=== PATIENT | female | born 2000 | race Caucasian/White ===

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

== ENCOUNTER → 2021-07-29 08:06 | Outpatient (BNVA) | payer BC, SELFPAY | PROVIDERS: Visit Provider Nurse Practitioner Women's Health | DX: Z34.90 Encounter for supervision of normal pregnancy, unspecified, unspecified trimester (principal); N92.6 Irregular menstruation, unspecified | CPT/HCPCS: 81025 ==

== ENCOUNTER → 2021-09-09 09:11 | Outpatient (BNVA) | payer BC, MEDICAID, SELFPAY | PROVIDERS: Visit Provider Obstetrics & Gynecology | DX: Z34.90 Encounter for supervision of normal pregnancy, unspecified, unspecified trimester (principal) | CPT/HCPCS: 80307; 82950; 84315; 84443; 85025; 86592; 86762; 86787; 86803; 86850; 86900; 87086; 87340; 87491; 87591; 87661 ==

== ENCOUNTER → 2022-01-02 09:17 | Outpatient (BNVA) | payer MEDICAID, SELFPAY | PROVIDERS: Visit Provider Obstetrics & Gynecology | DX: Z34.90 Encounter for supervision of normal pregnancy, unspecified, unspecified trimester (principal) | CPT/HCPCS: 81000; 82950; 85025 ==

== ENCOUNTER → 2022-01-19 08:22 | Outpatient (BNVA) | payer MEDICAID, SELFPAY | PROVIDERS: Visit Provider Obstetrics & Gynecology | DX: Z34.80 Encounter for supervision of other normal pregnancy, unspecified trimester (principal) | CPT/HCPCS: 81000 ==

== ENCOUNTER 2022-02-16 07:53 | Outpatient (CLI) | payer BC, MEDICAID, SELFPAY ==
[2022-02-16] VITALS (37 sets, daily range): BP systolic 126–168; BP diastolic 60–101; PULSE 96–130; RESP 17; TEMP 35.9–36.3; O2SAT 96–98; BMI 47.5
[2022-02-16 08:56] LABS: Add Urine Microscopic? YES; Bilirubin Urine Neg (Negative); Blood Urine Neg (Negative); Glucose Urine UA Norm (Normal); Ketones Urine Negative (Negative); Leukocyte Esterase Urine Trace (Negative); Nitrate Urine Negative (Negative); Protein Urine Neg (Negative); Specific Gravity, Urine 1.015 (1.005-1.030); Urine Appearance Hazy (CLEAR); Urine Color Yellow (Yellow); Urobilinogen Urine Norm (Negative); pH Urine 6 (5-7)
[2022-02-16 08:57] LABS: Add Urine Culture? No; Bacteria Urine 2+ /hpf; Mucus Urine TRACE /hpf; RBC Urine 0-4 /hpf (0-2); Squamous Epithelial Cell Urine 15-25 /hpf (0-5)
[2022-02-16] MEDS: NIFEdipine 10 mg Capsule 30 MG PO (10:34)
[2022-02-16] MEDS: terbutaline 1 mg/mL INJ 0.25 MG SUBCUT (12:01)
== END 2022-02-16 13:35 | disposition home or self-care (01) ==
LOC: OPOB 07:53 → OBGYN 07:54
PROVIDERS: Obstetrics & Gynecology; PCP Nurse Practitioner Family; Visit Provider Obstetrics & Gynecology
DX: O26.899 Other specified pregnancy related conditions, unspecified trimester (principal); Z3A.00 Weeks of gestation of pregnancy not specified; R10.9 Unspecified abdominal pain
CPT/HCPCS: 59025; 81001; 96372; 99211; J3105

== ENCOUNTER 2022-02-27 04:24 | Outpatient (CLI) | payer BC, MEDICAID, SELFPAY ==
[2022-02-27 04:45] VITALS: BMI 46.6
[2022-02-27 04:53] LABS: Nitrazine Paper, PH Negative
[2022-02-27 05:29] LABS: Charge for UA Resulting for Rev
[2022-02-27 05:33] LABS: Add Urine Microscopic? NO; Bilirubin Urine Neg (Negative); Blood Urine Neg (Negative); Glucose Urine UA Norm (Normal); Ketones Urine 1+ (Negative); Leukocyte Esterase Urine Negative (Negative); Nitrate Urine Negative (Negative); Protein Urine Neg (Negative); Specific Gravity, Urine 1.015 (1.005-1.030); Urine Appearance Clear (CLEAR); Urine Color Yellow (Yellow); Urobilinogen Urine Norm (Negative); pH Urine 6 (5-7)
[2022-02-27] MEDS: NIFEdipine ER (24 hr) 30 mg Tablet PO (05:33)
[2022-02-27 06:05] VITALS: BP 170/90; PULSE 106
[2022-02-27 06:08] VITALS: BP 152/68; PULSE 111
== END 2022-02-27 07:10 | disposition home or self-care (01) ==
LOC: OPOB 04:25 → OBGYN 04:42
PROVIDERS: PCP Nurse Practitioner Family; Visit Provider Obstetrics & Gynecology
DX: O26.899 Other specified pregnancy related conditions, unspecified trimester (principal); Z3A.00 Weeks of gestation of pregnancy not specified; R10.9 Unspecified abdominal pain
CPT/HCPCS: 59025; 81003; 83986; 99211

== ENCOUNTER → 2022-03-01 13:30 | Outpatient (BNVA) | payer MEDICAID, SELFPAY | PROVIDERS: PCP Nurse Practitioner Family; Visit Provider Obstetrics & Gynecology | DX: Z34.90 Encounter for supervision of normal pregnancy, unspecified, unspecified trimester (principal) | CPT/HCPCS: 81000; 87081; 87086 ==

== ENCOUNTER → 2022-03-08 00:01 | Outpatient (BNVA) | payer BC, MEDICAID, SELFPAY | PROVIDERS: PCP Nurse Practitioner Family; Visit Provider Obstetrics & Gynecology | DX: O09.899 Supervision of other high risk pregnancies, unspecified trimester (principal); Z3A.00 Weeks of gestation of pregnancy not specified | CPT/HCPCS: 84156 ==

== ENCOUNTER 2022-03-16 18:51 | Inpatient (IN) | payer BC, MEDICAID, SELFPAY ==
[2022-03-16] VITALS (34 sets, daily range): BP systolic 120–140; BP diastolic 59–99; PULSE 96–129; RESP 18; TEMP 35.9; O2SAT 98–100; BMI 48.7
[2022-03-16] MEDS: dextrose 5%-lactated ringers 1,000 ML 999 ML IV (20:16)
[2022-03-16 20:34] LABS: Basophils # 0.1 10^3/uL (0.0-0.1); Basophils % 0.6 %; Eosinophils # 0.1 10^3/uL (0.0-0.8); Eosinophils % 0.6 %; Hematocrit 33.8 % (37.0-47.0); Hemoglobin 10.9 g/dL (11.5-15.3); Lymphocytes # 1.2 10^3/uL (1.5-6.5); Lymphocytes % 9.1 %; Mean Corpuscular HGB Conc 32.2 g/dL (30.0-36.0); Mean Corpuscular Hemoglobin 27.8 pg (28.0-34.0); Mean Corpuscular Volume 86.2 fl (81-99); Monocytes # 1.4 10^3/uL (0.2-0.9); Monocytes % 10.8 %; Neutrophils # 9.78 10^3/uL (1.8-8.0); Neutrophils % 77.8 %; Nucleated Red Blood Cells % 0 %; Platelet Count 294 10^3/cmm (130-400); Red Blood Count 3.92 10^6/uL (4.1-5.3); Red Cell Distribution Width 13.2 % (12.1-15.1); White Blood Count 12.6 10^3/uL (4.5-13.0)
[2022-03-16] MEDS: alum-mag-hydroxide-sime 30 mL UDC PO (21:33)
[2022-03-16] MEDS: magnesium sulfate premix 4 GM/100 ML PREMIX IV (22:45)
[2022-03-16 23:01] LABS: Alanine Aminotransferase 16 U/L (0-33); Albumin Level 3.1 g/dL (3.5-5.2); Alkaline Phosphatase 195 IU/L (35-105); Anion Gap 17.1 (5-19); Aspartate Amino Transferase 16 U/L (0-32); Blood Urea Nitrogen 10 mg/dL (6-20); Calcium 8.8 mg/dL (8.5-10.5); Carbon Dioxide 19 mmol/L (22-29); Chloride 104 mmol/L (98-107); Globulin 3.5 g/dL (1.3-4.6); Glomerular Filtration Rate 157.3 mL/min (90-130); Glucose 96 mg/dL (65-115); Osmolality Calculated 281 mOsm/kg (285-295); Potassium 4.1 mmol/L (3.5-5.1); Sodium 136 mmol/L (136-145); Total Bilirubin 0.2 mg/dL (0.15-1.2); Total Protein 6.6 g/dL (6.6-8.7)
[2022-03-16] MEDS: magnesium sulfate premix 20 GM/500 ML BAG IV (23:07)
[2022-03-16] MEDS: miSOPROStol 100 mcg tablet 25 MCG VAGINAL (23:12)
[2022-03-17] VITALS (184 sets, daily range): BP systolic 95–151; BP diastolic 50–94; PULSE 51–121; RESP 18; TEMP 35.3–37.4; O2SAT 89–100
[2022-03-17] MEDS: dextrose 5%-lactated ringers 1,000 ML 125 ML IV ×2 (00:54→21:54)
[2022-03-17] MEDS: ondansetron 2 mg/ML SDV 2 mL 4 MG IVP ×2 (02:56→12:58)
[2022-03-17] MEDS: metoclopramide 5 mg/mL SDV 2 mL 10 MG IV (05:15)
[2022-03-17 06:14] LABS: Magnesium Level (OB Only) 3.9 mg/dL (5.0-7.5)
[2022-03-17] MEDS: oxytocin 30 UNIT/500 ML BAG IV (06:33)
[2022-03-17] MEDS: magnesium sulfate premix 20 GM/500 ML BAG IV ×3 (08:21→22:36)
[2022-03-17] MEDS: lactated ringers 500 ML IV (09:19)
--- NOTE | 2022-03-17 10:28 | ANES.PREANE2 ---
Pre-Anesthetic Assessment Height/Weight: Height 1.75 m Weight 149.685 kg Temp Pulse Resp BP Pulse Ox O2 Del Method 97.2 F L 100 18 138/60 98 03/17/22 08:03 03/17/22 09:30 03/16/22 20:09 03/17/22 09:30 03/16/22 21:32 03/17/22 03:22 Preop Diagnosis: Planning of labor analgesia Labor epidural Familial anesthetic complications: None Was Beta Jihan taken within 24 hours: N/A Was Clonidine taken within 24 hours: N/A Last intake: Full stomach Social No alcohol and No tobacco Exam alert, oriented x 3, clear to auscultation bilaterally and regular rate & rhythm Airway Submandibular: within normal limits Cervical ROM: within normal limits Mallampati: Class II Dentition: full History/ROS No significant history except as noted and No significant complaints Pulmonary None reported None reported Mild pre eclampsia on mag Hepatic None reported GI None reported Metabolic Morbid Obesity Musc/skel None reported Neuropsych None reported Anesthetic Plan ASA status: 3 (Morbidly obese parturient with pre eclampsia ) Anesthesia: Anesthesia Evaluation, Eval. for regional block, General and Regional (specify below) (Labor epidural) Other: I discussed with patient the risk and benefits of labor epidural including PDPH, hypotension, back pain/discomfort/bruising, catastrophic nerve injury including paralysis, abscess, hematoma, failed block, one sided block, and LAST. Patient consents to labor epidural and in case of emergency consents to general anesthesia. Risk of > 500 ml blood loss (7ml/kg in children): No Medications/Allergies Home Medications Medication Instructions Recorded Confirmed Last Taken Type PNV 153-FA 400 mcg-om3 35 mg-dha tab PO 09/09/21 03/06/22 02/24/22 History 25 mg-epa 5 mg-fish oil chew tablet ( Gummies) cetirizine 10 mg capsule (Zyrtec) 10 mg PO DAILY PRN Pain, Mild 10/10/21 03/06/22 02/24/22 History acetaminophen 500 mg tablet 500 mg PO Q6H PRN Pain 11/14/21 03/06/22 02/24/22 History (Tylenol Extra Strength) famotidine 20 mg tablet (Pepcid) 20 mg PO DAILY PRN 03/01/22 03/06/22 Unknown History Allergies Allergy/AdvReac Type Severity Reaction Status Date / Time No Known Allergies Allergy Verified 03/06/22 15:26 Current Medications Generic Name Dose Route Start Last Admin Trade Name Yrnq PRN Reason Stop Dose Admin Al Hydrox/Mg Hydrox/Simethicone 30 ml 03/16/22 20:09 03/16/22 21:33 Nrzw-Rfk-Imdcvruae-Raquel 30 Ml Udc PO 30 ml Q4H PRN Administration INDIGESTION Dextrose/Lactated Ringer's 1,000 mls @ 999 mls/hr 03/16/22 20:15 03/16/22 20:16 Dextrose 5%-Lactated Ringers IV 999 mls/hr .Q1H1M WALTER Administration Dextrose/Lactated Ringer's 1,000 mls @ 125 mls/hr 03/16/22 20:15 03/17/22 00:54 Dextrose 5%-Lactated Ringers IV 125 mls/hr .Q8H WALTER Administration Magnesium Sulfate 20 gm in 500 mls @ 62.5 mls/hr 03/16/22 22:15 03/17/22 08:21 Magnesium Sulfate Premix IV 62.5 mls/hr .Q8H WALTER Administration Oxytocin 30 unit in 500 mls @ 1 mls/hr 03/17/22 06:30 03/17/22 06:33 Pitocin IV 1 milliunit/min .Q24H WALTER 1 mls/hr Administration Protocol 1 MILLIUNIT/MIN Lactated Ringer's 500 mls @ 500 mls/hr 03/17/22 09:08 03/17/22 09:19 Lactated Ringers IV 500 mls/hr .Q1H PRN Administration see label comments Ondansetron HCl 4 mg 03/16/22 20:09 03/17/22 02:56 Ondansetron 2 Mg/Ml Sdv 2 Ml IVP 4 mg Q4H PRN Administration NAUSEA AND VOMITING PFSH Anesthesia Medical History Menorrhagia with regular cycle No pertinent past medical history neghx: htn,dm,heart,lung,liver,kidney,thyroid,dvt PCP: [facility] Surgical History Hx of fracture of leg (~10/2020) L leg and ankle Hx of wisdom tooth extraction (~10/2016) Family History Mother Thyroid disease Family/Other Breast cancer Paternal Great Aunt, Paternal Great Grandmother-- dx age unknown Grandfather Hypertension Maternal Stroke Paternal Grandmother Diabetes Maternal Denies family history of Colon cancer Ovarian cancer Heart disease Bleeding disorder Uterine cancer Social History Additional social history: - Tobacco use: Never Alcohol use: Never Drug use: Never Female Reproductive History Date of last menstrual period: 10/09/20 : 1 Data Anesthesia : 03/16/22 19:58 03/16/22 22:16 Short CBC 03/16/22 Range/Units 19:58 WBC 12.6 (4.5-13.0) 10^3/uL Hgb 10.9 L (11.5-15.3) g/dL Hct 33.8 L (37.0-47.0) % MCV 86.2 (81-99) fl Plt Count 294 (130-400) 10^3/cmm Neut % (Auto) 77.8 % Neut # (Auto) 9.78 H (1.8-8.0) 10^3/uL BMP 03/16/22 22:16 Sodium 136 Potassium 4.1 Chloride 104 Carbon Dioxide 19 L BUN 10 Creatinine 0.5 Glucose 96 Calcium 8.8 Liver Function 03/16/22 Range/Units 22:16 Total Bilirubin 0.2 (0.15-1.2) mg/dL AST 16 (0-32) U/L ALT 16 (0-33) U/L Alkaline Phosphatase 195 H (35-105) IU/L Albumin 3.1 L (3.5-5.2) g/dL Cardiac Studies: No Data to Display
[2022-03-17 10:38] LABS: Magnesium Level (OB Only) 4.3 mg/dL (5.0-7.5)
--- NOTE | 2022-03-17 12:10 | PC.NURSE ---
2nd peripheral IV inserted via ultrasound guidance by Dr Moon
--- NOTE | 2022-03-17 12:22 | ANES.PROC ---
Anesthesia Procedures Procedure/Date: 03/17/22 Epidural: Time Out Performed: Yes Consents Signed: Procedure Consent Consent: from patient Lumbar Level: L4-L5 Epidural position: sitting Epidural procedure: sterile prep of area, 1% lidocaine to numb the area, 18 g needle, neg for paresthesia, test dose given, 1.5% xylocaine 1:200k epi, 0.2% Ropivacaine bolus ml, placed PCEA, no systemic response, sterile dressing applied and 0.2% Ropiavacaine @ mls/hr (13) Additional Comments: Cap, mask donned by staff in room. Patient sat up. Patient prepped and draped in usual sterile fashion with Chlorprep. 1% lidocaine skin wheel. Tuohy inserted with stylet. Ligament engaged. Using JAZZ w/ saline technique epidural space found, catheter threaded. Negative aspiration. Test dose 2% lidocaine with epinephrine 1:200,000 total 3 cc. No response. Sterile dressing. Infusion started. Loss at? 9?(to the hub) , catheter at 15 . Tolerated well, 2 attempts (1 skin puncture), good block.?
--- NOTE | 2022-03-17 12:25 | ANES.PROC ---
Anesthesia Procedures Procedure/Date: 03/17/22 Other Information: After sterile prep and using real time US guidance for vessel selection a 16 g PIV was inserted with real time visualization of needle entry and real time visualization of catheter advancement. Tolerated well. 1 attempt.
--- NOTE | 2022-03-17 14:06 | P.PN_ITS ---
Subjective Subjective: Subjective- Ms. Cazares is a 21-year-old 1 para 0 at 38 weeks and 3 days who is being induced for preeclampsia. She was brought in with Dr. Calixto and plan was to do Cytotec. She was started on magnesium sulfate for seizure prophylaxis. Upon admission blood pressures were overall normal with occasional elevations into the 140s. Patient denied any severe symptoms. tracing was category 1 with no contractions. On admission cervix was 1 cm 50% and -3 station. Induction was started with Cytotec placed at 11 PM on 03/16/2022. 4 hours later she had made some cervical change to 2 cm 80% and -3 station and was zaid every 2 to 4 minutes. She was observed for another 3 hours and made no further cervical change and contractions spaced out to every 6 to 7 minutes. She was started on Pitocin for augmentation of labor. During this time urine output was adequate and she was doing well with magnesium. Magnesium levels did not obtain therapeutic level and so magnesium level was increased to 2.5 g an hour and then later to 3 g an hour. Today patient states she is overall doing well. Is just ready to have the baby. She has SCDs on and catheter in. Since getting the epidural she feels a lot more comfortable. Objective- Blood pressure-123/63 mmHg Pulse-95 beats per minute Temperature-97.8 Fahrenheit Abdomen-gravid, nontender, obese Sterile vaginal exam-4 cm, 70%, -3 station, bulging bag EFM-120, moderate variability, accelerations present, no decelerations [place]-contractions every 2 to 4 minutes Assessment: 21-year-old 1 para 0 at 38 weeks and 3 days currently undergoing induction for preeclampsia at term GBS negative Morbid obesity with a BMI of 48 Plan: Continue Pitocin reassess cervix in 2 hours and allow for either SROM or the head to descend lower in order to do AROM. -Continue magnesium sulfate and reassess magnesium levels 4 hours after increase of magnesium baseline to 3 g an hour to assess if patient is therapeutic. Continue strict I's and O's and respiratory care. -Plan of care was reviewed with patient and she has no questions or concerns at this time Continuous EFM and tocometry Vitals/I&O/Wt Last Vital Signs Temp 97.2 F L 03/17/22 08:03 Pulse 95 03/17/22 14:00 Resp 18 03/16/22 20:09 BP 123/63 03/17/22 13:58 Pulse Ox 100 03/17/22 14:00 O2 Del Method 03/17/22 03:22 03/16/22 03/17/22 03/17/22 22:59 06:59 14:59 Intake Total 1689.792 / 1689.792 Output Total 1155 / 1155 752 / 752 Balance -1155 / -1155 937.792 / 937.792 Weight last 48 hrs Weight 330 lb Physical Exam Urinary Catheter Management: Lombardo: Cath Placed During This Visit: yes Reason for Continuing Indwelling Catheter: Accurate Measurement of Urinary Output in Critically Ill Patients Urinary Catheter Date of Insertion: 03/17/22 Urinary Catheter Time of Insertion: 23:12 Data : 03/16/22 19:58 03/16/22 22:16 Attestations Medical Necessity Statement*: Patient will need to stay for 1-2 more midnights to deliver and recover from delivery Coding Level of Care Code Acute Construction Coordinator for [place]
[2022-03-17 19:28] LABS: Magnesium Level (OB Only) 6.5 mg/dL (5.0-7.5)
[2022-03-17] MEDS: oxytocin 30 UNIT/500 ML BAG 600 UNIT IV (19:57)
[2022-03-17] MEDS: lidocaine 2% INJ 20 mL INJECTION (20:00)
--- NOTE | 2022-03-17 20:19 | P.PCNOB_ITS ---
Delivery Note: Date of delivery: March 17, 2022 Pre-delivery diagnoses: iup@[id number], preeclampsia Post-delivery diagnoses: same-delivered Procedure: Delivering Physician: Marily Estimated blood loss (mL): 150 Findings: term female in the ERVIN presentation Pre-Delivery Course: The patient was admitted for induction at 38 weeks for preeclampsia. She received one dose of cytotec and was zaid too frequently for another dose of cytotec. Pitocin was started per protocol. She had AROM and received an epidural for pain management. She had complete cervical dilation and began pushing. Delivery: The patient had complete cervical dilation and began to push. The head delivered in the ERVIN position over a midline episiotomy under epidural anesthesia. The nose and mouth were bulb suctioned. The shoulders and body delivered atraumatically. The baby was placed onto the mother's abdomen. The cord was clamped and cut. The placenta delivered spontaneously. It was inspected and found to be intact. Inspection of the perineum revealed a second- degree episiotomy without extension. It was repaired in the usual fashion. Estimated blood loss 150 mL. Apgars on baby were 7 at 1 minute and 9 at 5 minutes. Weight of baby is 7 pounds 8 ounces. Mother and baby were stable post delivery. History History History 1 Term Miscarriages/Ectopic Living Children Coding Level of Care Code Acute Micro Computer Data Processor for [place]
[2022-03-17] MEDS: ibuprofen 800 mg tablet PO (21:54)
[2022-03-18] VITALS (27 sets, daily range): BP systolic 115–148; BP diastolic 60–87; PULSE 83–96; RESP 18; TEMP 35.9–36
[2022-03-18] MEDS: alum-mag-hydroxide-sime 30 mL UDC PO (01:44)
[2022-03-18 03:24] LABS: Magnesium Level (OB Only) 6.2 mg/dL (5.0-7.5)
[2022-03-18] MEDS: acetaminophen 325 mg Tablet 650 MG PO ×2 (05:02→18:32)
[2022-03-18] MEDS: magnesium sulfate premix 20 GM/500 ML BAG IV ×2 (05:25→12:45)
[2022-03-18 08:45] LABS: Hemoglobin 10.1 g/dL (11.5-15.3); Mean Corpuscular HGB Conc 32.6 g/dL (30.0-36.0); Mean Corpuscular Hemoglobin 28.1 pg (28.0-34.0); Mean Corpuscular Volume 86.1 fl (81-99); Mean Platelet Volume 10.7 fL (7.4-10.4); Platelet Count 288 10^3/cmm (130-400); Red Cell Distribution Width 13.3 % (12.1-15.1); White Blood Count 14.4 10^3/uL (4.5-13.0)
[2022-03-18] MEDS: docusate sodium 100 mg Capsule PO ×2 (09:07→22:12)
[2022-03-18] MEDS: prenatal vitamin Capsule 1 CAP PO (09:07)
[2022-03-18] MEDS: ibuprofen 800 mg tablet PO ×3 (09:07→22:12)
[2022-03-18 09:15] LABS: Magnesium Level (OB Only) 6.6 mg/dL (5.0-7.5)
--- NOTE | 2022-03-18 14:49 | PM.PN ---
Subjective Subjective: The patient has continued on Mag sulfate since delivery. There have been therapeutic levels. She has no complaints. Vitals/I&O/Wt Last Vital Signs Temp 96.8 F L 03/18/22 04:57 Pulse 96 03/18/22 14:34 Resp 18 03/17/22 20:18 BP 115/60 03/18/22 14:34 Pulse Ox 100 03/17/22 18:25 O2 Del Method 03/17/22 03:22 03/17/22 03/18/22 03/18/22 22:59 06:59 14:59 Intake Total 892.042 / 2633.117 500 / 3133.117 500 / 500 Output Total 521 / 1363 2775 / 4138 2325 / 2325 Balance 371.042 / 1270.117 -2275 / -1004.883 -1825 / -1825 Weight last 48 hrs Weight 330 lb Physical Exam Narrative: No concerns today Const: COMMON NORMALS: no acute distress, patient oriented x3, no limitations, healthy appearing, alert and well nourished GENERAL APPEARANCE: cooperative, comfortable, well kempt and well developed ORIENTATION/CONSCIOUSNESS: Yes awake, Yes oriented to person, Yes oriented to place and Yes oriented to time Resp: COMMON NORMALS: normal respiratory effort EFFORT & INSPECTION: Yes able to speak in complete sentences GI: COMMON NORMALS: Soft to palpation and non-tender PALPATION: Yes Soft to palpation Extremity: COMMON NORMALS: no calf tenderness Neuro: COMMON NORMALS: patient oriented x3 SENSORIUM/ORIENTATION: Yes alert, Yes oriented to person, Yes oriented to place and Yes oriented to time Psych: APPEARANCE: Yes well kempt Urinary Catheter Management: Lombardo: Cath Placed During This Visit: yes Reason for Continuing Indwelling Catheter: Accurate Measurement of Urinary Output in Critically Ill Patients Urinary Catheter Date of Insertion: 03/17/22 Urinary Catheter Time of Insertion: 20:23 Data : 03/18/22 08:11 03/16/22 22:16 Attestations Medical Necessity Statement*: The patient continued to receive mag sulfate. Anticipate discharge tomorrow Coding Level of Care Code Acute Water Fabricator Operator for [place]
[2022-03-18 15:07] LABS: Magnesium Level (OB Only) 6.4 mg/dL (5.0-7.5)
[2022-03-19] MEDS: benzocaine-menthol 78 gm Canister 1 SPRAY TOPICAL (00:01)
[2022-03-19 04:26] VITALS: BP 123/83; PULSE 123; TEMP 36
[2022-03-19 04:30] VITALS: PULSE 100
--- NOTE | 2022-03-19 04:30 | PC.NURSE ---
patient ambulating prior to taking vital signs. pulse 100 via palpation.
--- NOTE | 2022-03-19 08:24 | ANE.PACU2 ---
Inpatient post-anesthesia follow up: Airway intact: Yes Vital signs: Temperature 96.8 F Pulse Rate 100 Respiratory Rate 18 Blood Pressure 123/83 Pulse Oximetry 100 Oxygen Delivery Me thod Room Air Oxygen Flow Rate Fraction of Inspir ed Oxygen Hydration adequate: Yes Nausea and vomiting: No Pain level: 1 Mental status: Baseline
[2022-03-19] MEDS: prenatal vitamin Capsule 1 CAP PO (08:48)
[2022-03-19] MEDS: ibuprofen 800 mg tablet PO (08:48)
[2022-03-19] MEDS: docusate sodium 100 mg Capsule PO (08:48)
[2022-03-19 08:51] VITALS: TEMP 36.1
[2022-03-19 08:52] VITALS: BP 118/54; PULSE 83
[2022-03-19] MEDS: lanolin oint 7 gm 1 APPLIC TOPICAL (11:22)
--- NOTE | 2022-03-19 14:00 | PM.DCS ---
Discharge Providers Date of Admission: 03/16/22 18:51 Date of Discharge: March 19, 2022 Attending Provider at Admission: Dariela Logan MD Attending Provider at Discharge: Dariela Calixto MD Primary Care Provider: Delmi Cooney NP Reason for Visit Reason for Visit: induction Hospital Course Hospital Course The patient was admitted for induction at term for preeclampsia. She was started on mag sulfate. She had therapeutic levels. She had spontaneous delivery of a term . She was continued on mag sulfate for 24 post delivery. She did well , had good diuresis and was ready for discharge on day #2 Physical Exam Narrative: doing well this morning. No concerns Const: COMMON NORMALS: no acute distress, patient oriented x3, no limitations, healthy appearing, alert and well nourished GENERAL APPEARANCE: cooperative, comfortable, well kempt and well developed ORIENTATION/CONSCIOUSNESS: Yes awake, Yes oriented to person, Yes oriented to place and Yes oriented to time Resp: COMMON NORMALS: normal respiratory effort EFFORT & INSPECTION: Yes able to speak in complete sentences GI: COMMON NORMALS: Soft to palpation and non-tender PALPATION: Yes Soft to palpation Extremity: COMMON NORMALS: no calf tenderness Neuro: COMMON NORMALS: patient oriented x3 SENSORIUM/ORIENTATION: Yes alert, Yes oriented to person, Yes oriented to place and Yes oriented to time Psych: COMMON NORMALS: mental status grossly normal, Normal thought process present, cooperative, normal affect and speech normal APPEARANCE: Yes well kempt SPEECH: Yes normal speech THOUGHT PROCESS: Normal thought process present Urinary Catheter Management: Lombardo: Cath Placed During This Visit: yes, but has since been removed by the nurse Reason for Continuing Indwelling Catheter: Decision to DC Catheter Urinary Catheter Date of Insertion: 03/17/22 Urinary Catheter Time of Insertion: 20:23 Date Urinary Catheter Removed: 03/19/22 Time Urinary Catheter Discontinued: 03:00 Discharge Data Studies Completed and Pending Pending at discharge Category Date Time Status Magnesium Level (OB Only) Q6H Lab 03/18/22 17:55 Uncollected Laboratory Results WBC 14.4 10^3/uL (4.5-13.0) H 03/18/22 08:11 RBC 3.60 10^6/uL (4.1-5.3) L 03/18/22 08:11 Hgb 10.1 g/dL (11.5-15.3) L 03/18/22 08:11 Hct 31.0 % (37.0-47.0) L 03/18/22 08:11 MCV 86.1 fl (81-99) 03/18/22 08:11 MCH 28.1 pg (28.0-34.0) 03/18/22 08:11 MCHC 32.6 g/dL (30.0-36.0) 03/18/22 08:11 RDW 13.3 % (12.1-15.1) 03/18/22 08:11 Plt Count 288 10^3/cmm (130-400) 03/18/22 08:11 MPV 10.7 fL (7.4-10.4) H 03/18/22 08:11 Neut % (Auto) 77.8 % 03/16/22 19:58 Lymph % (Auto) 9.1 % 03/16/22 19:58 Stanley % (Auto) 10.8 % 03/16/22 19:58 Eos % (Auto) 0.6 % 03/16/22 19:58 Baso % (Auto) 0.6 % 03/16/22 19:58 Neut # (Auto) 9.78 10^3/uL (1.8-8.0) H 03/16/22 19:58 Lymph # (Auto) 1.2 10^3/uL (1.5-6.5) L 03/16/22 19:58 Stanley # (Auto) 1.4 10^3/uL (0.2-0.9) H 03/16/22 19:58 Eos # (Auto) 0.1 10^3/uL (0.0-0.8) 03/16/22 19:58 Baso # (Auto) 0.1 10^3/uL (0.0-0.1) 03/16/22 19:58 Nucleated RBC % (auto) 0 % 03/16/22 19:58 Nucleated RBCs # 0.0 /100WBC 03/16/22 19:58 Sodium 136 mmol/L (136-145) 03/16/22 22:16 Potassium 4.1 mmol/L (3.5-5.1) 03/16/22 22:16 Chloride 104 mmol/L (98-107) 03/16/22 22:16 Carbon Dioxide 19 mmol/L (22-29) L 03/16/22 22:16 Anion Gap 17.1 (5-19) 03/16/22 22:16 BUN 10 mg/dL (6-20) 03/16/22 22:16 Creatinine 0.5 mg/dL (0.5-0.9) 03/16/22 22:16 GFR Calculation 157.3 mL/min (90-130) H 03/16/22 22:16 Glucose 96 mg/dL (65-115) 03/16/22 22:16 Calculated Osmolality 281 mOsm/kg (285-295) L 03/16/22 22:16 Uric Acid 4.0 mg/dL (2.4-5.7) 03/16/22 22:16 Calcium 8.8 mg/dL (8.5-10.5) 03/16/22 22:16 Magnesium 6.4 mg/dL (5.0-7.5) 03/18/22 14:22 Total Bilirubin 0.2 mg/dL (0.15-1.2) 03/16/22 22:16 AST 16 U/L (0-32) 03/16/22 22:16 ALT 16 U/L (0-33) 03/16/22 22:16 Alkaline Phosphatase 195 IU/L (35-105) H 03/16/22 22:16 Total Protein 6.6 g/dL (6.6-8.7) 03/16/22 22:16 Albumin 3.1 g/dL (3.5-5.2) L 03/16/22 22:16 Globulin 3.5 g/dL (1.3-4.6) 03/16/22 22:16 Vitals Last Vital Signs Temp 97.0 F L 03/19/22 08:51 Pulse 83 03/19/22 08:52 Resp 18 03/18/22 21:00 BP 118/54 03/19/22 08:52 Pulse Ox 100 03/17/22 18:25 O2 Del Method 03/17/22 03:22 Discharge Plan Discharge Patient Disposition: Home Condition: Stable Prescriptions: Continued Zyrtec 10 mg capsule 10 mg PO DAILY PRN (Reason: Pain, Mild) acetaminophen [Tylenol Extra Strength] 500 mg tablet 500 mg PO Q6H PRN (Reason: Pain) Gummies 400 mcg-35 mg- 25 mg-5 mg tablet,chewable PO famotidine [Pepcid] 20 mg tablet 20 mg PO DAILY PRN Discharge Orders: Discharge Order (Routine); Ordered 03/19/22 Ordered By: Dariela Calixto Patient Instructions: Depression (DC), Bleeding (DC), Preeclampsia and Eclampsia After Delivery (GEN), COVID-19 and (GEN), Hemorrhage (DC), OB Discharge Report, OB Food/Drug Interaction Guide, OB Care at Home, Opioid Safety, OB Home Care, OB Vaginal Deliveries - [facility], Abnormal Bleeding Discharge Attestations Time Spent in Discharge Care*: less than 30 min Quality Metrics Clinical Quality Measures [ No reported AMI, CVA or VTE this stay] Coding Level of Care Code Acute Chg FW DC note
[2022-03-19 14:31] VITALS: BP 127/66; PULSE 105
[2022-03-19 15:32] VITALS: BP 127/66; PULSE 105
== END 2022-03-19 15:32 | disposition home or self-care (01) | DRG 807 ==
LOC: OPOB 18:56 → OBGYN 18:57 → OPOB 03-17 06:52 → OBGYN 03-17 06:54
PROVIDERS: Obstetrics & Gynecology; Admitting Provider Orthopaedic Surgery; PCP Nurse Practitioner Family; Visit Provider Obstetrics & Gynecology
DX: O14.94 Unspecified pre-eclampsia, complicating childbirth (principal); Z37.0 Single live birth; O99.214 Obesity complicating childbirth; O13.4 Gestational [pregnancy-induced] hypertension without significant proteinuria, complicating childbirth; O70.1 Second degree perineal laceration during delivery; Z3A.38 38 weeks gestation of pregnancy
CPT/HCPCS: 36415; 51702; 59409; 80053; 83735; 84550; 85025; 85027; J2405; J2765; J2795; J3475

== ENCOUNTER 2025-02-20 22:38 | Emergency (ER) | payer BC, MEDICAID, SELFPAY ==
--- OUTSIDE RECORDS SUMMARY | 2025-01-21 04:15 | XMS_ITS ---
Author Organization [facility] Address [address] [place] [address] Care Team Providers Care Animal Killer Name Role Phone Tricia Haro Primary Care Provider Misty [place] [phone] REASON FOR VISIT NST Encounters Encounter Location Date Provider Diagnosis [address] [place] [address] 01/21/2025 Misty Ruvalcaba Plan Of Treatment Next Appt Details Provider Name:Misty snow, 02/27/2025 08:30:00 AM, [address] [place] [address] [address], [place], [address], Progress Notes * MILAN BURGERDOB:2000 (24 yo F)Acc No.[id number]:01/21/2025 Patient: Lakeisha ROY MILAN Provider: Alyson Ruvalcaba MD :2000 A ge:24 Y S ex:Female Date:01/21/2025 [phone] Pcp:WILLIAM Fernando Subjective: * Chief Complaints: * 1 . NST. * Medical History: Objective: * Vitals: Assessment: Plan: * Treatment: * Billing Information: * Visit Code: * Procedure Codes: * Electronic signature of Tomas Ruvalcaba MD on 02/20/2025 at 10:46 PM CDT Sign off status: Pending * Provider: Alyson Ruvalcaba MD Date: 0 01/21/2025 Generated for Ankur mejias/Mehdi/Anali on: 0 02/20/2025 10:46 PM CDT
--- OUTSIDE RECORDS SUMMARY | 2025-01-21 05:15 | XMS_ITS ---
Author Organization [facility] Address [address] [place] [address] Care Team Providers Care Framing Mechanic Name Role Phone Tricia Haro Primary Care Provider Misty [place] [phone] REASON FOR VISIT 1 WK Encounters Encounter Location Date Provider Diagnosis [address] [place] [address] 01/21/2025 Misty Ruvalcaba Plan Of Treatment Next Appt Details Provider Name:Misty snow, 02/27/2025 08:30:00 AM, [address] [place] [address] [address], [place], [address], Progress Notes * MILAN BURGERDOB:2000 (24 yo F)Acc No.[id number]:01/21/2025 Patient: Lakeisha ROY MILAN Provider: Alyson Ruvalcaba MD :2000 A ge:24 Y S ex:Female Date:01/21/2025 [phone] Pcp:WILLIAM Fernando Subjective: * Chief Complaints: * 1 . 1 WK. * Medical History: Objective: * Vitals: Assessment: Plan: * Treatment: * Billing Information: * Visit Code: * Procedure Codes: * Electronic signature of Tomas Ruvalcaba MD on 02/20/2025 at 10:47 PM CDT Sign off status: Pending * Provider: Alyson Ruvalcaba MD Date: 0 01/21/2025 Generated for Ankur mejias/Mehdi/Anali on: 0 02/20/2025 10:47 PM CDT
--- OUTSIDE RECORDS SUMMARY | 2025-02-20 22:47 | XMS_ITS | Patient Health Record ---
Author Organization [facility] Address [address] [place] [address] Care Team Providers Care Curbing Stonecutter Name Role Phone Tricia Haro Primary Care Provider Unajesus Misty Baugh Unavailable [phone] IrvinDonovan wilson Unavailable [phone] Allergies No Known Allergies Results Component Value Reference Range Notes [facility] Without Micro-[facility], [place] - [id number] Reviewed date:07/14/2024 11:05:07 AM Interpretation: Performing Lab: Notes/Report: Color yellow Clarity clear Glucose - Bili - Ketones - Sp [place] 1.020 Blood - pH 6.0 Protein - Urobili 0.2 Nitrites - Leukocytes - ABORh 51763, 00665 Reviewed date:07/15/2024 03:20:54 PM Interpretation: Performing Lab: Notes/Report: Diagnosis Description: Encounter for supervision of normal , unspecified, first trimester ABO/Rh Interp A POS Antibody Screen [id number] Reviewed date:07/15/2024 03:20:10 PM Interpretation: Performing Lab: Notes/Report: Diagnosis Description: Encounter for supervision of normal , unspecified, first trimester Blood Bank ID OPO ABSC Interp Negative Culture Urine [id number] Reviewed date:07/16/2024 12:03:15 PM Interpretation: Performing Lab: Notes/Report: Culture Urine MILAN Bai Culture Urine t: Culture Urine Culture Urine Accessio [id number] Culture Urine n: Culture Urine Microbiology Culture Urine PROCEDURE: Culture Urine [O1] Culture Urine SOURCE: Urine BODY SITE: Culture Urine COLLECTED DATE/TIME: 07/14/2024 10:54 EATING DISORDER PSYCHOLOGIST RECEIVED DATE/TIME: 07/14/2024 20:51 EATING DISORDER PSYCHOLOGIST Culture Urine START DATE/TIME: 07/14/2024 20:52 EATING DISORDER PSYCHOLOGIST FREE TEXT SOURCE: Culture Urine FINAL REPORT Culture Urine Final Report [] Culture Urine Verified Date/Time: 07/16/2024 06:12 EATING DISORDER PSYCHOLOGIST Culture Urine <10,000 cfu/ml Mixed Superficial [place]se Culture Urine Order Comments Culture Urine O1: Culture Urine (Culture Urine [id number]) Culture Urine Diagnosis Description: Encounter for supervision of normal , unspecified, first Culture Urine trimester Basic Metabolic Panel (BMP) 41343 Reviewed date:07/15/2024 03:20:18 PM Interpretation: Performing Lab: Notes/Report: Diagnosis Description: Encounter for supervision of normal , unspecified, first trimester Sodium 136 136-145 MMOL/L Potassium 4.4 3.5-5.1 MMOL/L Chloride 104 98-107 MMOL/L CO2 23.7 20.0-31.0 MMOL/L Glucose Serum 85 71-110 MG/DL Testing perfor med at [address] [place] [address]. CLIA ID#: [id number] BUN 10 7-21 MG/DL Creat .62 .51-1.17 MG/DL D-gzvcna-o-benzoquinone imine (NAPQI) is a metabolite of acetaminophen, NAPQI concentrations of apparoximately 10 mg/L correlation to toxic levels of acetaminophen demonstrates a greater than or equil to 10% change in results. NAPQI concentrations greater than this may lead to falsely depressed results for patient samples. Use of this assay is not recommended for patients undergoing treatment with phenindione, due to the potential for falsely depressed results. GFR 128.1 Calculation per formed from GFR calculator provided by the National Kidney Foundation. Glomerular Filtration rate(GRF) is the best overall index of kidney function. Normal GFR varies according to age,sex, body size, and declines with age. The National Kidney Foundation recommends using the CKD-EPI Creatinine Equation(2020) to estimate GFR. Anion Gap 13 5-15 BUN/Creat Ratio 16.1 12.0-20.0 % Calcium 9.5 8.7-10.4 MG/DL Osmo Serum,Calculated 280 280-300 MOSM/KG Hemoglobin A1c 43828 Reviewed date:07/15/2024 03:19:45 PM Interpretation: Performing Lab: Notes/Report: Diagnosis Description: Encounter for supervision of normal , unspecified, first trimester Hgb A1c 4.8 3.8-6.4 % Interpretation Of Hgb A1c: 4.5-6.2 % nondiabetics. >7.0 % diabetics. EAG 91 Estimated [place] ge Glucose(EAG). Hepatic Function Panel [id number] Reviewed date:07/15/2024 03:21:06 PM Interpretation: Performing Lab: Notes/Report: Diagnosis Description: Encounter for supervision of normal , unspecified, first trimester Total Protein 6.7 5.8-8.0 G/DL Albumin 4.1 3.2-4.8 G/DL Bili Total .2 .3-1.2 MG/DL Use of this ass ay is not recommended for patients undergoing treatment with eltrombopag due to the potential for falsely elevated results. Bili Direct <.10 .05-.40 MG/DL Alk Phos 100 46-116 AST/SGOT 14 15-37 UNIT/L ALT/SGPT 17 12-78 UNIT/[place] [id number] Reviewed date:07/15/2024 03:21:01 PM Interpretation: Performing Lab: Notes/Report: Diagnosis Description: Encounter for supervision of normal , unspecified, first trimester Hepatitis C AB Non-Reactive SYPHILIS TEST, QUAL (RPR) 86 592 Reviewed date:07/15/2024 03:19:58 PM Interpretation: Performing Lab: Notes/Report: Diagnosis Description: Encounter for supervision of normal , unspecified, first trimester Syphilis Screen Non-Reactive Testing perf ormed via Contactual IM analyzer. This assay is a Chemiluminescent Microparticle Immunoassay for the detection of Treponemal antibodies. Reactive samples will be confirmed via RPR w/Reflex to Titer in accordance with CDC's recommended reverse sequence screening algorithm. Hepatitis Bs Antigen 41984 Reviewed date:07/15/2024 03:19:38 PM Interpretation: Performing Lab: Notes/Report: Diagnosis Description: Encounter for supervision of normal , unspecified, first trimester Hepatitis Bs AG Non-Reactive CBC w\o Diff 66684 Reviewed date:07/15/2024 03:20:46 PM Interpretation: Performing Lab: Notes/Report: Diagnosis Description: Encounter for supervision of normal , unspecified, first trimester WBC 11.9 4.5-11.0 X10'3 RBC 4.69 4.00-5.20 X10'6 Hgb 13.7 12.0-16.0 G/DL Hct 40.6 36.0-46.0 % MCV 86.6 80.0-100.0 FL MCH 29.2 27.0-31.0 PG MCHC 33.7 31.0-37.0 G/DL Platelet 352 150-400 X10'3 RDW-SD 40.2 35.0-49.0 FL RDW-CV 12.6 12.2-15.6 % MPV 10.7 9.2-12.0 FL Varicella Zoster IgG 93680 Reviewed date:07/15/2024 03:19:48 PM Interpretation: Performing Lab: Notes/Report: Diagnosis Description: Encounter for supervision of normal , unspecified, first trimester Varicella Zoster IgG 1.0 >= 1.1 Positive 0.9-1.1 Equivocal <= 0.9 Negative The best evidence of current infection is a significant change on two appropriately timed specimen,where both tests are done in the same laboratory at the same time. Rubella IgG 70719 Reviewed date:07/15/2024 03:20:58 PM Interpretation: Performing Lab: Notes/Report: Diagnosis Description: Encounter for supervision of normal , unspecified, first trimester Rubella IgG Reactive Nonreactive: Samples with a value of < 5.0 IU/mL are considered negative for IgG antibodies to Rubella virus. Reactive: Samples with a value of ? 10.0 IU/mL are considered positive for IgG antibodies to rubella virus. Equivocal: Samples with a value of ? 5.0 IU/mL and < 10.0 IU/mL are considered equivocal. Obtain a new specimen and test using the [employer] IM Rubella assay. Drug Screen Multi Panel 8030 5 Reviewed date:07/15/2024 03:20:04 PM Interpretation: Performing Lab: Notes/Report: Diagnosis Description: Encounter for supervision of normal , unspecified, first trimester Marijuana-THC Negative Speciman analysis was performed without chain of custody handling. Testing performed by colorimetric method. Confirmation is pending. These resuts should be used for medical purposes only and not for any legal or employment evaluative purposes. In very rare instances, and extremely high drug concentration may field a negative result for any qualitative drug screening assay. The potential for false negative results in these rare instances exsists for all drug screening methods. Specimen Type: Urine Cutoff value: 50 ng/mL Cocaine-DARCIE Negative Specimen analysis was performed without chain of custody handling. Testing performed by colorimetric method. Confirmation is pending. These resuts should be used for medical purposes only and not for any legal or employment evaluative purposes. In very rare instances, and extremely high drug concentration may field a negative result for any qualitative drug screening assay. The potential for false negative results in these rare instances exsists for all drug screening methods. Specimen Type: Urine Cutoff value: 300 ng/mL Opiates-MOP Negative Speciman analysis was performed without chain of custody handling. Testing performed by colorimetric method. Confirmation is pending. These resuts should be used for medical purposes only and not for any legal or employment evaluative purposes. In very rare instances, and extremely high drug concentration may field a negative result for any qualitative drug screening assay. The potential for false negative results in these rare instances exsists for all drug screening methods. Specimen Type: Urine Cutoff value: 2000 ng/mL Amphetamine-AMP Negative Speciman analysis was performed without chain of custody handling. Testing performed by colorimetric method. Confirmation is pending. These resuts should be used for medical purposes only and not for any legal or employment evaluative purposes. In very rare instances, and extremely high drug concentration may field a negative result for any qualitative drug screening assay. The potential for false negative results in these rare instances exsists for all drug screening methods. Specimen Type: Urine Cutoff value: 1000 ng/mL Methamphetamines-MET Negative Speciman analysis was performed without chain of custody handling. Testing performed by colorimetric method. Confirmation is pending. These resuts should be used for medical purposes only and not for any legal or employment evaluative purposes. In very rare instances, and extremely high drug concentration may field a negative result for any qualitative drug screening assay. The potential for false negative results in these rare instances exsists for all drug screening methods. Specimen Type: Urine Cutoff value: 1000 ng/mL Phencyclidine-PCP Negative Speciman analysis was performed without chain of custody handling. Testing performed by colorimetric method. Confirmation is pending. These resuts should be used for medical purposes only and not for any legal or employment evaluative purposes. In very rare instances, and extremely high drug concentration may field a negative result for any qualitative drug screening assay. The potential for false negative results in these rare instances exsists for all drug screening methods. Specimen Type: Urine Cutoff value: 25 ng/mL Ecstasy-MDMA Negative Speciman analysis was performed without chain of custody handling. Testing performed by colorimetric method. Confirmation is pending. These resuts should be used for medical purposes only and not for any legal or employment evaluative purposes. In very rare instances, and extremely high drug concentration may field a negative result for any qualitative drug screening assay. The potential for false negative results in these rare instances exsists for all drug screening methods. Specimen Type: Urine Cutoff value: 500 ng/mL Barbiturates-BAR Negative Speciman analysis was performed without chain of custody handling. Testing performed by colorimetric method. Confirmation is pending. These resuts should be used for medical purposes only and not for any legal or employment evaluative purposes. In very rare instances, and extremely high drug concentration may field a negative result for any qualitative drug screening assay. The potential for false negative results in these rare instances exsists for all drug screening methods. Specimen Type: Urine Cutoff value: 300 ng/mL Benzodiazepines-BZO Negative Speciman analysis was performed without chain of custody handling. Testing performed by colorimetric method. Confirmation is pending. These resuts should be used for medical purposes only and not for any legal or employment evaluative purposes. In very rare instances, and extremely high drug concentration may field a negative result for any qualitative drug screening assay. The potential for false negative results in these rare instances exsists for all drug screening methods. Specimen Type: Urine Cutoff value: 300 ng/mL Methadone-MTD Negative Speciman analysis was performed without chain of custody handling. Testing performed by colorimetric method. Confirmation is pending. These resuts should be used for medical purposes only and not for any legal or employment evaluative purposes. In very rare instances, and extremely high drug concentration may field a negative result for any qualitative drug screening assay. The potential for false negative results in these rare instances exsists for all drug screening methods. Specimen Type: Urine Cutoff value: 300 ng/mL Oxycodone-OXY Negative Speciman analysis was performed without chain of custody handling. Testing performed by colorimetric method. Confirmation is pending. These resuts should be used for medical purposes only and not for any legal or employment evaluative purposes. In very rare instances, and extremely high drug concentration may field a negative result for any qualitative drug screening assay. The potential for false negative results in these rare instances exsists for all drug screening methods. Specimen Type: Urine Cutoff value: 100 ng/mL Buprenorphine-BUP Negative Analysis was performed without chain of custody handling. Testing performed by colorimetric method. Confirmation is pending. These resuts should be used for medical purposes only and not for any legal or employment evaluative purposes. In very rare instances, and extremely high drug concentration may field a negative result for any qualitative drug screening assay. The potential for false negative results in these rare instances exsists for all drug screening methods. Specimen Type: Urine Cutoff value: 10 ng/mL CT/ NG PCR 72559, 59708 Reviewed date:07/15/2024 03:20:07 PM Interpretation: Performing Lab: Notes/Report: Diagnosis Description: Encounter for supervision of normal , unspecified, first trimester CT PCR NOT DETECTED NG PCR NOT DETECTED HIV 1/2 Ag/Ab Screen--40295, 43477 Reviewed date:07/15/2024 03:19:41 PM Interpretation: Performing Lab: Notes/Report: Diagnosis Description: Encounter for supervision of normal , unspecified, first trimester HIV 1/2 Ag/Ab Combo Non-Reactive Screenin g test only. Reactive samples will be sent out for confirmation. [facility], [place] - [id number] Reviewed date:08/21/2024 11:16:17 AM Interpretation: Performing Lab: Notes/Report: Color dark yellow Clarity cloudy Glucose - Bili - Ketones - Sp [place] 1.020 Blood - pH 6.5 Protein +- Urobili - Nitrites - Leukocytes 1+ [facility], [place] - [id number] Reviewed date:09/24/2024 10:53:10 AM Interpretation: Performing Lab: Notes/Report: Color dark yellow Clarity clear Glucose - Bili - Ketones -+ Sp [place] 1.015 Blood - pH 6.0 Protein -+ Urobili 0.2 Nitrites - Leukocytes - [facility] Micro-Auto, [place] - [address] Reviewed date:10/22/2024 10:34:10 AM Interpretation: Performing Lab: Notes/Report: Color dark yellow Clarity cloudy Glucose - Bili 1+ Ketones - Sp [place] 1.020 Blood - pH 6.0 Protein +- Urobili 0.2 Nitrites - Leukocytes - Comprehensive Metabolic Pane l ([facility]) [address]772 Reviewed date:10/23/2024 12:40:45 PM Interpretation: Performing Lab: Notes/Report: Diagnosis Description: Palpitations Glucose Serum 64 71-110 MG/DL Testing perfor med at [facility], [address] [place] [address] [place] [address]. CLIA ID#: [id number] BUN 10 7-21 MG/DL Creat .55 .51-1.17 MG/DL D-bomteo-u-benzoquinone imine (NAPQI) is a metabolite of acetaminophen, NAPQI concentrations of apparoximately 10 mg/L correlation to toxic levels of acetaminophen demonstrates a greater than or equil to 10% change in results. NAPQI concentrations greater than this may lead to falsely depressed results for patient samples. Use of this assay is not recommended for patients undergoing treatment with phenindione, due to the potential for falsely depressed results. GFR 132.1 Calculation per formed from GFR calculator provided by the National Kidney Foundation. Glomerular Filtration rate(GRF) is the best overall index of kidney function. Normal GFR varies according to age,sex, body size, and declines with age. The National Kidney Foundation recommends using the CKD-EPI Creatinine Equation(2020) to estimate GFR. BUN/Creat Ratio 18.2 12.0-20.0 % Total Protein 6.7 5.8-8.0 G/DL Albumin 4.0 3.2-4.8 G/DL Globulin 2.7 2.3-3.5 G/DL Alb/Glob 1.5 0.8-2.2 Calcium 9.1 8.7-10.4 MG/DL Sodium 135 136-145 MMOL/L Potassium 4.4 3.5-5.1 MMOL/L Chloride 101 98-107 MMOL/L CO2 23.5 20.0-31.0 MMOL/L Anion Gap 15 5-15 Alk Phos 111 46-116 Bili Total .2 .3-1.2 MG/DL Use of this ass ay is not recommended for patients undergoing treatment with eltrombopag due to the potential for falsely elevated results. AST/SGOT 18 15-37 UNIT/L ALT/SGPT 25 12-78 UNIT/L Osmo Serum,Calculated 277 280-300 MOSM/KG Magnesium (B) 29773 Reviewed date:10/24/2024 08:00:35 AM Interpretation: Performing Lab: Notes/Report: Diagnosis Description: Palpitations Magnesium 1.6 1.8-2.4 MG/DL Phosphorus (B) 22581 Reviewed date:10/23/2024 12:41:00 PM Interpretation: Performing Lab: Notes/Report: Diagnosis Description: Palpitations Phos 3.2 2.4-5.1 MG/DL Thyroid Stimulating Hormone (TSH) 63948 Reviewed date:10/23/2024 12:41:59 PM Interpretation: Performing Lab: Notes/Report: Diagnosis Description: Palpitations TSH 1.737 .358-3.740 MlU/ML Vitamin B12 (B) 49772 Reviewed date:10/23/2024 12:40:13 PM Interpretation: Performing Lab: Notes/Report: Diagnosis Description: Palpitations HhfrpkyH27 334 211-911 pg/mL Vitamin D Total (B) 68014 Reviewed date:10/24/2024 08:01:08 AM Interpretation: Performing Lab: Notes/Report: Diagnosis Description: Palpitations Vitamin D Total 14.1 30.0-100.0 ng/mL Deficiency: < 20 ng/mL Insufficiency: 20??? < 30 ng/mL Sufficiency: 30???100 ng/mL Performed on the Siemens Kurani Interactive IM Analyzer CBC w\o Diff 20755 Reviewed date:10/23/2024 12:40:58 PM Interpretation: Performing Lab: Notes/Report: Diagnosis Description: Palpitations WBC 15.0 4.5-11.0 X10'3 RBC 4.22 4.00-5.20 X10'6 Hgb 12.5 12.0-16.0 G/DL Hct 37.0 36.0-46.0 % MCV 87.7 80.0-100.0 FL MCH 29.6 27.0-31.0 PG MCHC 33.8 31.0-37.0 G/DL Platelet 370 150-400 X10'3 RDW-SD 41.9 35.0-49.0 FL RDW-CV 13.1 12.2-15.6 % MPV 10.9 9.2-12.0 FL Vitamin C (B) 67972 Reviewed date:10/25/2024 12:00:53 PM Interpretation: Performing Lab: Notes/Report: Diagnosis Description: Palpitations Vitamin C 37 23-114 UMOL/L Vitamin C concentrations lower than 11 umol/L indicate deficiency. Concentrations between 11 and 23 umol/L are consistent with a moderate risk of deficiency due to inadequate tissue stores. Vitamin C concentration is reported as micromoles per liter (umol/L). To convert concentration to milligrams per deciliter (mg/dL), multiply the result by 0.0176. This test was developed and its performance characteristics determined by [facility]. It has not been cleared or approved by the [place] Food and Drug Administration. This test was performed in a CLIA certified laboratory and is intended for clinical purposes. Performed By: [facility] [address] [place] [address] Cutter Barrel Drum: Pradeep Marquez MD, PhD CLIA Number: [id number] Horizon 14 (BOCANEGRA-[facility] ST[facility] ANTONIO) Reviewed date:07/23/2024 11:47:01 AM Interpretation: Performing Lab: Notes/Report: Report Summary Negative Negative for 14 out of 14 diseases. Alpha-Thalassemia Negative Beta-Hemoglobinopathie s Negative Waldo Disease Negative Cystic Fibrosis Negative Duchenne/Dia Muscular Dystrophy Negative Familial Dysautonomia Negative Fragile X Syndrome Negative NEGATIVE Fragile X Syndrome results 30 and 29 CGG repeats were detected in the FMR1 genes. Galactosemia Negative Gaucher Disease Negative Medium Chain Acyl-CoA Dehydrogenase Deficiency Negative Polycystic Kidney Disease, Autosomal Recessive Negative Soznt-Prcka-Myhzc Syndrome Negative Spinal Muscular Atrophy Negative NEGATIVE Spinal Muscular Atrophy (SMA) Results SMN1: Two copies; [id number].90194G>G: absent; the absence of the g.51008X>G variant decreases the chance to be a silent (2+0) carrier. Adeel-Sachs Disease Negative Panel Notes See Notes Report Note See Notes Footnotes See Notes Please see the attached PDF for information regarding Conditions, Methodology, Disclaimers, and further information. Test performed by [facility]. : [address] [place] [id number] CLIA ID #[id number] CLIA Care Consultant: Silvia Torres, Ph.D., [facility] UA Microscopic--[id number] Reviewed date:12/09/2024 10:56:56 AM Interpretation: Performing Lab: Notes/Report: Micro UA ordered by [facility] Expert Rules system. RBC U 2 WBC U 12 0-5 /HPF Bacteria None Seen Hyaline Casts 4 SQ EPI 6 Drug Screen Multi Panel 8030 5 Reviewed date:01/01/2025 05:58:25 PM Interpretation: Performing Lab: Notes/Report: Marijuana-THC Negative Speciman analysis was performed without chain of custody handling. Testing performed by colorimetric method. Confirmation is pending. These resuts should be used for medical purposes only and not for any legal or employment evaluative purposes. In very rare instances, and extremely high drug concentration may field a negative result for any qualitative drug screening assay. The potential for false negative results in these rare instances exsists for all drug screening methods. Specimen Type: Urine Cutoff value: 50 ng/mL Cocaine-DARCIE Negative Specimen analysis was performed without chain of custody handling. Testing performed by colorimetric method. Confirmation is pending. These resuts should be used for medical purposes only and not for any legal or employment evaluative purposes. In very rare instances, and extremely high drug concentration may field a negative result for any qualitative drug screening assay. The potential for false negative results in these rare instances exsists for all drug screening methods. Specimen Type: Urine Cutoff value: 300 ng/mL Opiates-MOP Negative Speciman analysis was performed without chain of custody handling. Testing performed by colorimetric method. Confirmation is pending. These resuts should be used for medical purposes only and not for any legal or employment evaluative purposes. In very rare instances, and extremely high drug concentration may field a negative result for any qualitative drug screening assay. The potential for false negative results in these rare instances exsists for all drug screening methods. Specimen Type: Urine Cutoff value: 2000 ng/mL Amphetamine-AMP Negative Speciman analysis was performed without chain of custody handling. Testing performed by colorimetric method. Confirmation is pending. These resuts should be used for medical purposes only and not for any legal or employment evaluative purposes. In very rare instances, and extremely high drug concentration may field a negative result for any qualitative drug screening assay. The potential for false negative results in these rare instances exsists for all drug screening methods. Specimen Type: Urine Cutoff value: 1000 ng/mL Methamphetamines-MET Negative Speciman analysis was performed without chain of custody handling. Testing performed by colorimetric method. Confirmation is pending. These resuts should be used for medical purposes only and not for any legal or employment evaluative purposes. In very rare instances, and extremely high drug concentration may field a negative result for any qualitative drug screening assay. The potential for false negative results in these rare instances exsists for all drug screening methods. Specimen Type: Urine Cutoff value: 1000 ng/mL Phencyclidine-PCP Negative Speciman analysis was performed without chain of custody handling. Testing performed by colorimetric method. Confirmation is pending. These resuts should be used for medical purposes only and not for any legal or employment evaluative purposes. In very rare instances, and extremely high drug concentration may field a negative result for any qualitative drug screening assay. The potential for false negative results in these rare instances exsists for all drug screening methods. Specimen Type: Urine Cutoff value: 25 ng/mL Ecstasy-MDMA Negative Speciman analysis was performed without chain of custody handling. Testing performed by colorimetric method. Confirmation is pending. These resuts should be used for medical purposes only and not for any legal or employment evaluative purposes. In very rare instances, and extremely high drug concentration may field a negative result for any qualitative drug screening assay. The potential for false negative results in these rare instances exsists for all drug screening methods. Specimen Type: Urine Cutoff value: 500 ng/mL Barbiturates-BAR Negative Speciman analysis was performed without chain of custody handling. Testing performed by colorimetric method. Confirmation is pending. These resuts should be used for medical purposes only and not for any legal or employment evaluative purposes. In very rare instances, and extremely high drug concentration may field a negative result for any qualitative drug screening assay. The potential for false negative results in these rare instances exsists for all drug screening methods. Specimen Type: Urine Cutoff value: 300 ng/mL Benzodiazepines-BZO Negative Speciman analysis was performed without chain of custody handling. Testing performed by colorimetric method. Confirmation is pending. These resuts should be used for medical purposes only and not for any legal or employment evaluative purposes. In very rare instances, and extremely high drug concentration may field a negative result for any qualitative drug screening assay. The potential for false negative results in these rare instances exsists for all drug screening methods. Specimen Type: Urine Cutoff value: 300 ng/mL Methadone-MTD Negative Speciman analysis was performed without chain of custody handling. Testing performed by colorimetric method. Confirmation is pending. These resuts should be used for medical purposes only and not for any legal or employment evaluative purposes. In very rare instances, and extremely high drug concentration may field a negative result for any qualitative drug screening assay. The potential for false negative results in these rare instances exsists for all drug screening methods. Specimen Type: Urine Cutoff value: 300 ng/mL Oxycodone-OXY Negative Speciman analysis was performed without chain of custody handling. Testing performed by colorimetric method. Confirmation is pending. These resuts should be used for medical purposes only and not for any legal or employment evaluative purposes. In very rare instances, and extremely high drug concentration may field a negative result for any qualitative drug screening assay. The potential for false negative results in these rare instances exsists for all drug screening methods. Specimen Type: Urine Cutoff value: 100 ng/mL Buprenorphine-BUP Negative Analysis was performed without chain of custody handling. Testing performed by colorimetric method. Confirmation is pending. These resuts should be used for medical purposes only and not for any legal or employment evaluative purposes. In very rare instances, and extremely high drug concentration may field a negative result for any qualitative drug screening assay. The potential for false negative results in these rare instances exsists for all drug screening methods. Specimen Type: Urine Cutoff value: 10 ng/mL Hepatitis A IgM 51236 Reviewed date:01/02/2025 12:28:16 PM Interpretation: Performing Lab: Notes/Report: Hep A IgM Non-Reactive Comprehensive Metabolic Pane l (CMP) 99338 Reviewed date:01/02/2025 12:28:16 PM Interpretation: Performing Lab: Notes/Report: Glucose Serum 97 71-110 MG/DL Testing perfor med at [address] [place] [address]. CLIA ID#: [id number] BUN 6 7-21 MG/DL Creat .54 .51-1.17 MG/DL T-zjjtkf-m-benzoquinone imine (NAPQI) is a metabolite of acetaminophen, NAPQI concentrations of apparoximately 10 mg/L correlation to toxic levels of acetaminophen demonstrates a greater than or equil to 10% change in results. NAPQI concentrations greater than this may lead to falsely depressed results for patient samples. Use of this assay is not recommended for patients undergoing treatment with phenindione, due to the potential for falsely depressed results. GFR 132.3 Calculation per formed from GFR calculator provided by the [employer]. Glomerular Filtration rate(GRF) is the best overall index of kidney function. Normal GFR varies according to age,sex, body size, and declines with age. The National Kid[employer] recommends using the CKD-EPI Creatinine Equation(2020) to estimate GFR. BUN/Creat Ratio 11.1 12.0-20.0 % Total Protein 5.5 5.8-8.0 G/DL Albumin 3.4 3.2-4.8 G/DL Globulin 2.1 2.3-3.5 G/DL Alb/Glob 1.6 0.8-2.2 Calcium 8.3 8.7-10.4 MG/DL Sodium 137 136-145 MMOL/L Potassium 3.9 3.5-5.1 MMOL/L Chloride 109 98-107 MMOL/L CO2 20.1 20.0-31.0 MMOL/L Anion Gap 12 5-15 Alk Phos 143 46-116 Bili Total .4 .3-1.2 MG/DL Use of this ass ay is not recommended for patients undergoing treatment with eltrombopag due to the potential for falsely elevated results. AST/SGOT 79 15-37 UNIT/L ALT/SGPT 80 12-78 UNIT/L Osmo Serum,Calculated 281 280-300 MOSM/KG Magnesium (B) 20214 Reviewed date:01/02/2025 12:28:16 PM Interpretation: Performing Lab: Notes/Report: Magnesium 1.8 1.8-2.4 MG/DL Protein (U) Random 38553 Reviewed date:01/02/2025 12:28:16 PM Interpretation: Performing Lab: Notes/Report: Ur Prot 138.20 .00-12.00 MG/DL Creatinine (U) 74756 Reviewed date:01/02/2025 12:28:16 PM Interpretation: Performing Lab: Notes/Report: Ur Creat 401.3 29.0-226.0 Magnesium (B) 66168 Reviewed date:01/05/2025 12:37:28 AM Interpretation: Performing Lab: Notes/Report: Magnesium >10 1.8-2.4 MG/DL Sample collect ed while mg was running, ordering Dr requested note be attached that explains high level so that mg didnt have to be stopped and pt recollected a 2nd time. 01/03/2025 21:04:50 JT Comprehensive Metabolic Pane l ([facility]) 86872 Reviewed date:01/05/2025 12:37:28 AM Interpretation: Performing Lab: Notes/Report: Glucose Serum 91 71-110 MG/DL Testing perfor med at [address] [place], [place] [address]. CLIA ID#: [id number] BUN <5 7-21 MG/DL Creat .56 .51-1.17 MG/DL X-abmkji-w-benzoquinone imine (NAPQI) is a metabolite of acetaminophen, NAPQI concentrations of apparoximately 10 mg/L correlation to toxic levels of acetaminophen demonstrates a greater than or equil to 10% change in results. NAPQI concentrations greater than this may lead to falsely depressed results for patient samples. Use of this assay is not recommended for patients undergoing treatment with phenindione, due to the potential for falsely depressed results. GFR 144.7 Calculation per formed from GFR calculator provided by the [employer]. Glomerular Filtration rate(GRF) is the best overall index of kidney function. Normal GFR varies according to age,sex, body size, and declines with age. The National Kid[employer] recommends using the CKD-EPI Creatinine Equation(2020) to estimate GFR. BUN/Creat Ratio <8.9 12.0-20.0 % Total Protein 5.1 5.8-8.0 G/DL Albumin 3.0 3.2-4.8 G/DL Globulin 2.1 2.3-3.5 G/DL Alb/Glob 1.4 0.8-2.2 Calcium 7.2 8.7-10.4 MG/DL Sodium 133 136-145 MMOL/L Potassium 3.8 3.5-5.1 MMOL/L Chloride 104 98-107 MMOL/L CO2 21.1 20.0-31.0 MMOL/L Anion Gap 12 5-15 Alk Phos 138 46-116 Bili Total .3 .3-1.2 MG/DL Use of this ass ay is not recommended for patients undergoing treatment with eltrombopag due to the potential for falsely elevated results. AST/SGOT 48 15-37 UNIT/L ALT/SGPT 70 12-78 UNIT/L Magnesium (B) 88205 Reviewed date:01/05/2025 12:37:28 AM Interpretation: Performing Lab: Notes/Report: Magnesium 4.2 1.8-2.4 MG/DL Comprehensive Metabolic Pane l ([facility]) 48195 Reviewed date:01/05/2025 02:28:14 PM Interpretation: Performing Lab: Notes/Report: Glucose Serum 96 71-110 MG/DL Testing perfor med at [facility], [address] [place] [address] [place] [address]. CLIA ID#: [id number] BUN 11 7-21 MG/DL Creat .66 .51-1.17 MG/DL J-bmgnqf-h-benzoquinone imine (NAPQI) is a metabolite of acetaminophen, NAPQI concentrations of apparoximately 10 mg/L correlation to toxic levels of acetaminophen demonstrates a greater than or equil to 10% change in results. NAPQI concentrations greater than this may lead to falsely depressed results for patient samples. Use of this assay is not recommended for patients undergoing treatment with phenindione, due to the potential for falsely depressed results. GFR 126.2 Calculation per formed from GFR calculator provided by the [employer]. Glomerular Filtration rate(GRF) is the best overall index of kidney function. Normal GFR varies according to age,sex, body size, and declines with age. The National Kid[employer] recommends using the CKD-EPI Creatinine Equation(2020) to estimate GFR. BUN/Creat Ratio 16.7 12.0-20.0 % Total Protein 6.7 5.8-8.0 G/DL Albumin 4.1 3.2-4.8 G/DL Globulin 2.6 2.3-3.5 G/DL Alb/Glob 1.6 0.8-2.2 Calcium 9.1 8.7-10.4 MG/DL Sodium 142 136-145 MMOL/L Potassium 4.2 3.5-5.1 MMOL/L Chloride 102 98-107 MMOL/L CO2 28.5 20.0-31.0 MMOL/L Anion Gap 16 5-15 Alk Phos 162 46-116 Bili Total .3 .3-1.2 MG/DL Use of this ass ay is not recommended for patients undergoing treatment with eltrombopag due to the potential for falsely elevated results. AST/SGOT 133 15-37 UNIT/L ALT/SGPT 164 12-78 UNIT/L Osmo Serum,Calculated 293 280-300 MOSM/KG [facility] Metabolic Pane l ([facility]) [address]30 Reviewed date:01/19/2025 04:38:40 PM Interpretation: Performing Lab: Notes/Report: Diagnosis Description: Abnormal levels of other serum enzymes Glucose Serum 68 71-110 MG/DL Testing perfor med at [facility], [address] [place] [address] [place] [address]. CLIA ID#: [id number] BUN 19 7-21 MG/DL Creat .83 .51-1.17 MG/DL P-mvipzu-t-benzoquinone imine (NAPQI) is a metabolite of acetaminophen, NAPQI concentrations of apparoximately 10 mg/L correlation to toxic levels of acetaminophen demonstrates a greater than or equil to 10% change in results. NAPQI concentrations greater than this may lead to falsely depressed results for patient samples. Use of this assay is not recommended for patients undergoing treatment with phenindione, due to the potential for falsely depressed results. GFR 101.6 Calculation per formed from GFR calculator provided by the [employer]. Glomerular Filtration rate(GRF) is the best overall index of kidney function. Normal GFR varies according to age,sex, body size, and declines with age. The National Kid[employer] Foundation recommends using the CKD-EPI Creatinine Equation(2020) to estimate GFR. BUN/Creat Ratio 22.9 12.0-20.0 % Total Protein 7.0 5.8-8.0 G/DL Albumin 4.7 3.2-4.8 G/DL Globulin 2.3 2.3-3.5 G/DL Alb/Glob 2.0 0.8-2.2 Calcium 9.5 8.7-10.4 MG/DL Sodium 138 136-145 MMOL/L Potassium 4.9 3.5-5.1 MMOL/L Chloride 104 98-107 MMOL/L CO2 25.7 20.0-31.0 MMOL/L Anion Gap 13 5-15 Alk Phos 102 46-116 Bili Total .4 .3-1.2 MG/DL Use of this ass ay is not recommended for patients undergoing treatment with eltrombopag due to the potential for falsely elevated results. AST/SGOT 21 15-37 UNIT/L ALT/SGPT 27 12-78 UNIT/L Osmo Serum,Calculated 286 280-300 MOSM/KG Magnesium (B) 69274 Reviewed date:01/19/2025 04:38:42 PM Interpretation: Performing Lab: Notes/Report: Diagnosis Description: Abnormal levels of other serum enzymes Magnesium 1.9 1.8-2.4 MG/DL Phosphorus (B) 60783 Reviewed date:01/19/2025 04:38:46 PM Interpretation: Performing Lab: Notes/Report: Diagnosis Description: Abnormal levels of other serum enzymes Phos 5.5 2.4-5.1 MG/DL SYPHILIS TEST, QUAL (RPR) 86 592 Reviewed date:01/19/2025 04:38:48 PM Interpretation: Performing Lab: Notes/Report: Diagnosis Description: Encounter for supervision of normal , unspecified, third trimester Syphilis Screen Non-Reactive Testing perf ormed via Siemens MeaningollQ-Layer IM analyzer. This assay is a Chemiluminescent Microparticle Immunoassay for the detection of Treponemal antibodies. Reactive samples will be confirmed via RPR w/Reflex to Titer in accordance with CDC's recommended reverse sequence screening algorithm. Vitamin D Total (B) 20280 Reviewed date:01/19/2025 04:38:51 PM Interpretation: Performing Lab: Notes/Report: Diagnosis Description: Vitamin D deficiency, unspecified Diagnosis Description: Encounter for supervision of normal , unspecified, third trimester Vitamin D Total 40.7 30.0-100.0 ng/mL Deficiency: < 20 ng/mL Insufficiency: 20??? < 30 ng/mL Sufficiency: 30???100 ng/mL Performed on the Siemens Meaningollica IM Analyzer HIV 1/2 Ag/Ab Screen--13967, 46753 Reviewed date:01/19/2025 04:38:53 PM Interpretation: Performing Lab: Notes/Report: Diagnosis Description: Encounter for supervision of normal , unspecified, third trimester HIV 1/2 Ag/Ab Combo Non-Reactive Screenin g test only. Reactive samples will be sent out for confirmation. WBC Auto Diff--99222 Reviewed date:01/05/2025 03:58:31 PM Interpretation: Performing Lab: Notes/Report: Added by Discern Rules Neutro Auto% 67.3 40.0-70.0 % Lymph Auto% 20.5 22.0-44.0 % [place] Auto% 6.3 3.0-7.0 % Eos Auto% 4.0 2.0-4.0 % Baso Auto% 0.7 0.0-1.0 % NRBC% .00 .00-.20 /100 intact WBC's Neutro Abs 9.15 .80-7.70 Absolute Neutrophil Count 9150 Lymph Abs 2.79 .10-4.10 [place] Abs .86 .20-1.00 Eos Abs .54 .00-.40 Baso Abs .10 .00-.20 NRBC# .00 .00-.20 X10'3 Imm Gran Abs .17 .00-.10 Imm Gran% 1.2 .0-.4 % CBC Reflex Man Diff [id number], 8 2747 Reviewed date:01/05/2025 03:58:31 PM Interpretation: Performing Lab: Notes/Report: WBC 13.6 4.5-11.0 X10'3 RBC 4.15 4.00-5.20 X10'6 Hgb 11.8 12.0-16.0 G/DL Hct 36.2 36.0-46.0 % MCV 87.2 80.0-100.0 FL MCH 28.4 27.0-31.0 PG MCHC 32.6 31.0-37.0 G/DL Platelet 333 150-400 X10'3 RDW-SD 41.1 35.0-49.0 FL RDW-CV 12.9 12.2-15.6 % MPV 10.1 9.2-12.0 FL Review Auto Diff Conf US Abdomen Limited-[id number] Reviewed date:01/05/2025 02:14:21 PM Interpretation: Performing Lab: Notes/Report: See Below For Report US Abdomen Limited Right upper quadrant US Read See Below For Report ZZZPathology Specimen Reviewed date:01/05/2025 02:15:12 PM Interpretation: Performing Lab: Notes/Report: Order placed by Discern for documentation of an indication for pathology of the placenta. Pathology Specimen Sent to Pathologist Comprehensive Metabolic Panbart l (CMP) 15255 Reviewed date:01/05/2025 02:14:42 PM Interpretation: Performing Lab: Notes/Report: Glucose Serum 81 71-110 MG/DL Testing perfor med at [address] [place] [address]. CLIA ID#: [id number] BUN 10 7-21 MG/DL Creat .71 .51-1.17 MG/DL W-jzdjdk-z-benzoquinone imine (NAPQI) is a metabolite of acetaminophen, NAPQI concentrations of apparoximately 10 mg/L correlation to toxic levels of acetaminophen demonstrates a greater than or equil to 10% change in results. NAPQI concentrations greater than this may lead to falsely depressed results for patient samples. Use of this assay is not recommended for patients undergoing treatment with phenindione, due to the potential for falsely depressed results. GFR 122.0 Calculation per formed from GFR calculator provided by the National Kidney Foundation. Glomerular Filtration rate(GRF) is the best overall index of kidney function. Normal GFR varies according to age,sex, body size, and declines with age. The National Kidney Foundation recommends using the CKD-EPI Creatinine Equation(2020) to estimate GFR. BUN/Creat Ratio 14.1 12.0-20.0 % Total Protein 5.9 5.8-8.0 G/DL Albumin 3.5 3.2-4.8 G/DL Globulin 2.4 2.3-3.5 G/DL Alb/Glob 1.5 0.8-2.2 Calcium 8.9 8.7-10.4 MG/DL Sodium 140 136-145 MMOL/L Potassium 4.1 3.5-5.1 MMOL/L Chloride 106 98-107 MMOL/L CO2 25.1 20.0-31.0 MMOL/L Anion Gap 13 5-15 Alk Phos 143 46-116 Bili Total .2 .3-1.2 MG/DL Use of this ass ay is not recommended for patients undergoing treatment with eltrombopag due to the potential for falsely elevated results. AST/SGOT 89 15-37 UNIT/L ALT/SGPT 122 12-78 UNIT/L Osmo Serum,Calculated 288 280-300 MOSM/[place] [address] Reviewed date:01/05/2025 12:37:28 AM Interpretation: Performing Lab: Notes/Report: Hepatitis A AB Total Positive Negative The positive anti-HAV is consistent with recent or remote Hepatitis A infection or antibody response to HAV vaccination. False positive anti-HAV can occur. Performed By: [facility] [address] [place] [address] [employer]: Pradeep Marquez MD, PhD CLIA Number: [id number] Magnesium (B) 50508 Reviewed date:01/05/2025 12:37:28 AM Interpretation: Performing Lab: Notes/Report: Magnesium 2.9 1.8-2.4 MG/DL Comprehensive Metabolic Pane l (CMP) 36671 Reviewed date:01/05/2025 12:37:28 AM Interpretation: Performing Lab: Notes/Report: Glucose Serum 76 71-110 MG/DL Testing perfor med at [address] [place], [place] [address]. CLIA ID#: [id number] BUN 7 7-21 MG/DL Creat .62 .51-1.17 MG/DL O-ywxtps-s-benzoquinone imine (NAPQI) is a metabolite of acetaminophen, NAPQI concentrations of apparoximately 10 mg/L correlation to toxic levels of acetaminophen demonstrates a greater than or equil to 10% change in results. NAPQI concentrations greater than this may lead to falsely depressed results for patient samples. Use of this assay is not recommended for patients undergoing treatment with phenindione, due to the potential for falsely depressed results. GFR 127.8 Calculation per formed from GFR calculator provided by the National Kidney Foundation. Glomerular Filtration rate(GRF) is the best overall index of kidney function. Normal GFR varies according to age,sex, body size, and declines with age. The National Kidney Foundation recommends using the CKD-EPI Creatinine Equation(2020) to estimate GFR. BUN/Creat Ratio 11.3 12.0-20.0 % Total Protein 5.4 5.8-8.0 G/DL Albumin 3.2 3.2-4.8 G/DL Globulin 2.2 2.3-3.5 G/DL Alb/Glob 1.5 0.8-2.2 Calcium 7.6 8.7-10.4 MG/DL Sodium 139 136-145 MMOL/L Potassium 4.5 3.5-5.1 MMOL/L Chloride 109 98-107 MMOL/L CO2 24.2 20.0-31.0 MMOL/L Anion Gap 10 5-15 Alk Phos 141 46-116 Bili Total .2 .3-1.2 MG/DL Use of this ass ay is not recommended for patients undergoing treatment with eltrombopag due to the potential for falsely elevated results. AST/SGOT 49 15-37 UNIT/L ALT/SGPT 74 12-78 UNIT/L Osmo Serum,Calculated 285 280-300 MOSM/KG Magnesium (B) 38443 Reviewed date:01/05/2025 12:37:28 AM Interpretation: Performing Lab: Notes/Report: Magnesium 6.3 1.8-2.4 MG/DL Comprehensive Metabolic Pane l (CMP) 68222 Reviewed date:01/05/2025 12:37:28 AM Interpretation: Performing Lab: Notes/Report: Glucose Serum 98 71-110 MG/DL Testing perfor med at [address] [place] [address]. CLIA ID#: [id number] BUN <5 7-21 MG/DL Creat .58 .51-1.17 MG/DL H-kvdvqq-t-benzoquinone imine (NAPQI) is a metabolite of acetaminophen, NAPQI concentrations of apparoximately 10 mg/L correlation to toxic levels of acetaminophen demonstrates a greater than or equil to 10% change in results. NAPQI concentrations greater than this may lead to falsely depressed results for patient samples. Use of this assay is not recommended for patients undergoing treatment with phenindione, due to the potential for falsely depressed results. GFR 130.2 Calculation per formed from GFR calculator provided by the National Kidney Foundation. Glomerular Filtration rate(GRF) is the best overall index of kidney function. Normal GFR varies according to age,sex, body size, and declines with age. The National Kidney Foundation recommends using the CKD-EPI Creatinine Equation(2020) to estimate GFR. BUN/Creat Ratio <8.6 12.0-20.0 % Total Protein 5.5 5.8-8.0 G/DL Albumin 3.4 3.2-4.8 G/DL Globulin 2.1 2.3-3.5 G/DL Alb/Glob 1.6 0.8-2.2 Calcium 6.7 8.7-10.4 MG/DL Sodium 137 136-145 MMOL/L Potassium 3.9 3.5-5.1 MMOL/L Chloride 108 98-107 MMOL/L CO2 21.3 20.0-31.0 MMOL/L Anion Gap 12 5-15 Alk Phos 158 46-116 Bili Total .4 .3-1.2 MG/DL Use of this ass ay is not recommended for patients undergoing treatment with eltrombopag due to the potential for falsely elevated results. AST/SGOT 63 15-37 UNIT/L ALT/SGPT 83 12-78 UNIT/L CBC w\o Diff [id number] Reviewed date:01/05/2025 12:37:28 AM Interpretation: Performing Lab: Notes/Report: WBC 14.7 4.5-11.0 X10'3 RBC 3.69 4.00-5.20 X10'6 Hgb 10.6 12.0-16.0 G/DL Hct 31.4 36.0-46.0 % MCV 85.1 80.0-100.0 FL MCH 28.7 27.0-31.0 PG MCHC 33.8 31.0-37.0 G/DL Platelet 274 150-400 X10'3 RDW-SD 38.9 35.0-49.0 FL RDW-CV 12.6 12.2-15.6 % MPV 10.5 9.2-12.0 FL Culture Urine Reflex--[id number] Reviewed date:01/05/2025 12:37:28 AM Interpretation: Performing Lab: Notes/Report: Culture Urine Reflex MILAN Bai Culture Urine Reflex t: Culture Urine Reflex Culture Urine Reflex Accessio [id number] Culture Urine Reflex n: Culture Urine Reflex Microbiology Culture Urine Reflex PROCEDURE: Culture Urine Reflex [] Culture Urine Reflex SOURCE: U CC BODY SITE: Culture Urine Reflex COLLECTED DATE/TIME : 01/02/2025 18:38 CDT RECEIVED DATE/TIME: 01/02/2025 18:44 CDT Culture Urine Reflex START DATE/TIME: 01/02/2025 18:44 CDT FREE TEXT SOURCE: Culture Urine Reflex FINAL REPORT Culture Urine Reflex Final Report [] Culture Urine Reflex Verified Date/Time: 01/04/2025 09:26 CDT Culture Urine Reflex No growth at 48 hours Magnesium (B) 49943 Reviewed date:01/03/2025 02:47:02 AM Interpretation: Performing Lab: Notes/Report: Magnesium 5.0 1.8-2.4 MG/DL Comprehensive Metabolic Pane l (CMP) 50132 Reviewed date:01/03/2025 02:47:02 AM Interpretation: Performing Lab: Notes/Report: Glucose Serum 92 71-110 MG/DL Testing perfor med at [facility], [address] [place] [address] Dr. [place]i [place], [place] [address]. CLIA ID#: [id number] BUN <5 7-21 MG/DL Creat .62 .51-1.17 MG/DL M-inlhxu-w-benzoquinone imine (NAPQI) is a metabolite of acetaminophen, NAPQI concentrations of apparoximately 10 mg/L correlation to toxic levels of acetaminophen demonstrates a greater than or equil to 10% change in results. NAPQI concentrations greater than this may lead to falsely depressed results for patient samples. Use of this assay is not recommended for patients undergoing treatment with phenindione, due to the potential for falsely depressed results. GFR 128.1 Calculation per formed from GFR calculator provided by the [employer]. Glomerular Filtration rate(GRF) is the best overall index of kidney function. Normal GFR varies according to age,sex, body size, and declines with age. The National Kidney Foundation recommends using the CKD-EPI Creatinine Equation(2020) to estimate GFR. BUN/Creat Ratio <8.1 12.0-20.0 % Total Protein 6.1 5.8-8.0 G/DL Albumin 3.6 3.2-4.8 G/DL Globulin 2.4 2.3-3.5 G/DL Alb/Glob 1.5 0.8-2.2 Calcium 7.3 8.7-10.4 MG/DL Sodium 135 136-145 MMOL/L Potassium 3.8 3.5-5.1 MMOL/L Chloride 103 98-107 MMOL/L CO2 21.6 20.0-31.0 MMOL/L Anion Gap 14 5-15 Alk Phos 166 46-116 Bili Total .6 .3-1.2 MG/DL Use of this ass ay is not recommended for patients undergoing treatment with eltrombopag due to the potential for falsely elevated results. AST/SGOT 92 15-37 UNIT/L ALT/SGPT 98 12-78 UNIT/L Magnesium (B) 44724 Reviewed date:01/02/2025 10:01:07 PM Interpretation: Performing Lab: Notes/Report: 01/02/2025 17:06:[address] missx2 lv, waititng for someone else to come in to try. Magnesium 4.2 1.8-2.4 MG/DL Comprehensive Metabolic Pane l ([facility]) 58684 Reviewed date:01/02/2025 10:01:07 PM Interpretation: Performing Lab: Notes/Report: Glucose Serum 79 71-110 MG/DL Testing perfor med at [facility], [address] [place] [address] [place] [address]. CLIA ID#: [id number] BUN 6 7-21 MG/DL Creat .65 .51-1.17 MG/DL K-mahivq-y-benzoquinone imine (NAPQI) is a metabolite of acetaminophen, NAPQI concentrations of apparoximately 10 mg/L correlation to toxic levels of acetaminophen demonstrates a greater than or equil to 10% change in results. NAPQI concentrations greater than this may lead to falsely depressed results for patient samples. Use of this assay is not recommended for patients undergoing treatment with phenindione, due to the potential for falsely depressed results. GFR 126.6 Calculation per formed from GFR calculator provided by the [employer]. Glomerular Filtration rate(GRF) is the best overall index of kidney function. Normal GFR varies according to age,sex, body size, and declines with age. The National Kidney Foundation recommends using the CKD-EPI Creatinine Equation(2020) to estimate GFR. BUN/Creat Ratio 9.2 12.0-20.0 % Total Protein 6.0 5.8-8.0 G/DL Albumin 3.7 3.2-4.8 G/DL Globulin 2.3 2.3-3.5 G/DL Alb/Glob 1.6 0.8-2.2 Calcium 8.0 8.7-10.4 MG/DL Sodium 135 136-145 MMOL/L Potassium 4.0 3.5-5.1 MMOL/L Chloride 105 98-107 MMOL/L CO2 22.7 20.0-31.0 MMOL/L Anion Gap 11 5-15 Alk Phos 157 46-116 Bili Total .5 .3-1.2 MG/DL Use of this ass ay is not recommended for patients undergoing treatment with eltrombopag due to the potential for falsely elevated results. AST/SGOT 70 15-37 UNIT/L ALT/SGPT 81 12-78 UNIT/L Osmo Serum,Calculated 276 280-300 MOSM/KG UA Microscopic--[id number] Reviewed date:01/02/2025 10:01:07 PM Interpretation: Performing Lab: Notes/Report: Micro UA ordered by [facility] Expert Rules system. RBC U 608 WBC U 36 0-5 /HPF Bacteria None Seen Hyaline Casts 4 SQ EPI 15 UA Reflex Micro, Reflex Cult [id number], 50434, 98802 Reviewed date:01/02/2025 10:01:07 PM Interpretation: Performing Lab: Notes/Report: Color UA Dark Yellow Clarity UA Cloudy Specific gravity UA 1.036 1.005-1.030 Urine pH 5.5 5.0-8.0 Urine Glucose Negative Urine Bilirubin 1+ Urine Ketone 1+ Urine Blood 3+ Urine Protein 1+ Urobilinogen 1.0 0.1-1.0 Urine Nitrite Negative Urine Leukocyte 1+ Normal UA No Urine Culture Yes CBC w\o Diff [id number] Reviewed date:01/02/2025 10:01:07 PM Interpretation: Performing Lab: Notes/Report: WBC 10.3 4.5-11.0 X10'3 RBC 4.15 4.00-5.20 X10'6 Hgb 11.6 12.0-16.0 G/DL Hct 35.3 36.0-46.0 % MCV 85.1 80.0-100.0 FL MCH 28.0 27.0-31.0 PG MCHC 32.9 31.0-37.0 G/DL Platelet 230 150-400 X10'3 RDW-SD 39.6 35.0-49.0 FL RDW-CV 12.9 12.2-15.6 % MPV 10.6 9.2-12.0 FL Antibody Screen [id number] Reviewed date:01/02/2025 12:28:16 PM Interpretation: Performing Lab: Notes/Report: Blood Bank ID [id number] ABSC Interp Negative ABORh [id number], [id number] Reviewed date:01/02/2025 12:28:16 PM Interpretation: Performing Lab: Notes/Report: ABO/Rh Interp A POS SYPHILIS TEST, QUAL (RPR) 86 592 Reviewed date:01/02/2025 12:28:16 PM Interpretation: Performing Lab: Notes/Report: Syphilis Screen Non-Reactive Testing perf ormed via Contactual IM analyzer. This assay is a Chemiluminescent Microparticle Immunoassay for the detection of Treponemal antibodies. Reactive samples will be confirmed via RPR w/Reflex to Titer in accordance with CDC's recommended reverse sequence screening algorithm. WBC Auto Diff--[id number] Reviewed date:01/02/2025 12:28:16 PM Interpretation: Performing Lab: Notes/Report: Added by [employer] Neutro Auto% 66.6 40.0-70.0 % Lymph Auto% 17.3 22.0-44.0 % [place] Auto% 12.0 3.0-7.0 % Eos Auto% 2.3 2.0-4.0 % Baso Auto% 0.8 0.0-1.0 % NRBC% .00 .00-.20 /100 intact WBC's Neutro Abs 5.28 .80-7.70 Absolute Neutrophil Count 5280 Lymph Abs 1.37 .10-4.10 [place] Abs .95 .20-1.00 Eos Abs .18 .00-.40 Baso Abs .06 .00-.20 NRBC# .00 .00-.20 X10'3 Imm Gran Abs .08 .00-.10 Imm Gran% 1.0 .0-.4 % CBC Reflex Man Diff 90586, 8 5007 Reviewed date:01/02/2025 12:28:16 PM Interpretation: Performing Lab: Notes/Report: WBC 7.9 4.5-11.0 X10'3 RBC 3.86 4.00-5.20 X10'6 Hgb 11.0 12.0-16.0 G/DL Hct 32.8 36.0-46.0 % MCV 85.0 80.0-100.0 FL MCH 28.5 27.0-31.0 PG MCHC 33.5 31.0-37.0 G/DL Platelet 261 150-400 X10'3 RDW-SD 39.1 35.0-49.0 FL RDW-CV 12.7 12.2-15.6 % MPV 10.5 9.2-12.0 FL Review Auto Diff Conf CBC w\ Auto Diff [id number] Reviewed date:01/01/2025 05:58:25 PM Interpretation: Performing Lab: Notes/Report: WBC 8.4 4.5-11.0 X10'3 RBC 4.04 4.00-5.20 X10'6 Hgb 11.5 12.0-16.0 G/DL Hct 35.0 36.0-46.0 % MCV 86.6 80.0-100.0 FL MCH 28.5 27.0-31.0 PG MCHC 32.9 31.0-37.0 G/DL Platelet 290 150-400 X10'3 RDW-SD 40.2 35.0-49.0 FL RDW-CV 12.6 12.2-15.6 % MPV 10.7 9.2-12.0 FL Neutro Auto% 73.4 40.0-70.0 % Lymph Auto% 14.2 22.0-44.0 % [place] Auto% 10.1 3.0-7.0 % Eos Auto% .7 2.0-4.0 % Baso Auto% 0.6 0.0-1.0 % Imm Gran% 1.0 .0-.4 % Neutro Abs 6.17 .80-7.70 Absolute Neutrophil Count 6170 Lymph Abs 1.19 .10-4.10 [place] Abs .85 .20-1.00 Eos Abs .06 .00-.40 Baso Abs .05 .00-.20 Imm Gran Abs .08 .00-.10 NRBC# .00 .00-.20 X10'3 NRBC% .00 .00-.20 /100 intact WBC's Magnesium (B) 33527 Reviewed date:01/01/2025 05:58:25 PM Interpretation: Performing Lab: Notes/Report: Magnesium 1.7 1.8-2.4 MG/DL Comprehensive Metabolic Pane l (CMP) 57727 Reviewed date:01/01/2025 05:58:25 PM Interpretation: Performing Lab: Notes/Report: Glucose Serum 86 71-110 MG/DL Testing perfor med at [facility], [address] [place] [address] [place] [address]. CLIA ID#: [id number] BUN 7 7-21 MG/DL Creat .55 .51-1.17 MG/DL V-qexfnn-h-benzoquinone imine (NAPQI) is a metabolite of acetaminophen, NAPQI concentrations of apparoximately 10 mg/L correlation to toxic levels of acetaminophen demonstrates a greater than or equil to 10% change in results. NAPQI concentrations greater than this may lead to falsely depressed results for patient samples. Use of this assay is not recommended for patients undergoing treatment with phenindione, due to the potential for falsely depressed results. GFR 131.6 Calculation per formed from GFR calculator provided by the National Kidney Foundation. Glomerular Filtration rate(GRF) is the best overall index of kidney function. Normal GFR varies according to age,sex, body size, and declines with age. The National Kidney Foundation recommends using the CKD-EPI Creatinine Equation(2020) to estimate GFR. BUN/Creat Ratio 12.7 12.0-20.0 % Total Protein 6.9 5.8-8.0 G/DL Albumin 4.2 3.2-4.8 G/DL Globulin 2.7 2.3-3.5 G/DL Alb/Glob 1.6 0.8-2.2 Calcium 8.9 8.7-10.4 MG/DL Sodium 137 136-145 MMOL/L Potassium 4.0 3.5-5.1 MMOL/L Chloride 109 98-107 MMOL/L CO2 18.3 20.0-31.0 MMOL/L Anion Gap 14 5-15 Alk Phos 157 46-116 Bili Total .4 .3-1.2 MG/DL Use of this ass ay is not recommended for patients undergoing treatment with eltrombopag due to the potential for falsely elevated results. AST/SGOT 72 15-37 UNIT/L ALT/SGPT 67 12-78 UNIT/L Osmo Serum,Calculated 281 280-300 MOSM/KG Phosphorus (B) 43835 Reviewed date:01/01/2025 05:58:25 PM Interpretation: Performing Lab: Notes/Report: Phos 3.7 2.4-5.1 MG/DL US OB Limited-[id number] Reviewed date:12/23/2024 12:03:29 PM Interpretation: Performing Lab: Notes/Report: See Below For Report US OB Limited Read See Below For Report Culture Urine Reflex--[id number] Reviewed date:12/13/2024 05:02:06 PM Interpretation: Performing Lab: Notes/Report: Culture Urine Reflex MILAN Bai Culture Urine Reflex t: Culture Urine Reflex Culture Urine Reflex [id number] Culture Urine Reflex n: Culture Urine Reflex Microbiology Culture Urine Reflex PROCEDURE: Culture Urine Reflex [] Culture Urine Reflex SOURCE: U CC BODY SITE: Culture Urine Reflex COLLECTED DATE/TIME : 12/09/2024 10:36 CDT RECEIVED DATE/TIME: 12/09/2024 11:01 CDT Culture Urine Reflex START DATE/TIME: 12/09/2024 11:01 CDT FREE TEXT SOURCE: Culture Urine Reflex FINAL REPORT Culture Urine Reflex Final Report [] Culture Urine Reflex Verified Date/Time: 12/11/2024 06:21 CDT Culture Urine Reflex <10,000 cfu/ml Mixe d Superficial [place]se UA Reflex Micro, Reflex Cult 53293, 52706, 44093 Reviewed date:12/09/2024 10:56:56 AM Interpretation: Performing Lab: Notes/Report: Color UA Yellow Clarity UA Clear Specific gravity UA 1.021 1.005-1.030 Urine pH 6.5 5.0-8.0 Urine Glucose Negative Urine Bilirubin Negative Urine Ketone Trace Urine Blood Negative Urine Protein 1+ Urobilinogen 1.0 0.1-1.0 Urine Nitrite Negative Urine Leukocyte 1+ Normal UA No Urine Culture Yes Leukorrhea - 73715, 25099, 8 7660, 31739, 29428 Reviewed date:11/12/2024 05:47:56 PM Interpretation: Performing Lab: Notes/Report: Chlamydia Sent to Ref Lab,result in clinical notes Gonorrhea Sent to Ref Lab,result in clinical notes Trichomonas Sent to Ref Lab Miscellaneous Test Reviewed date:11/12/2024 05:47:56 PM Interpretation: Performing Lab: Notes/Report: Misc Sent to Ref Lab Name of Misc Test Mycoplasma genitalium, Mycoplasma hominis, Ureaplasma species US OB Complete-[id number] Reviewed date:09/23/2024 02:40:26 PM Interpretation: Performing Lab: Notes/Report: See Below For Report US OB Complete Read See Below For Report Panorama Test Reviewed date:07/21/2024 08:06:45 AM Interpretation: Performing Lab: Notes/Report: Report Summary LOW RISK LOW RISK Report Note See Notes Trisomy 13 Age-Based Risk Text 17,826 (0.01%) Trisomy 13 Risk Score Text <1/10,000 (<0.01%) Trisomy 13 Result Text Low Risk Trisomy 18 Age-Based Risk Text 08/21,484 (0.04%) Trisomy 18 Risk Score Text <1/10,000 (<0.01%) Trisomy 18 Result Text Low Risk Trisomy 21 Age-Based Risk Text 08/20,068 (0.09%) Trisomy 21 Risk Score Text <1/10,000 (<0.01%) Trisomy 21 Result Text Low Risk Monosomy X Age-Based Risk Text 255 (0.39%) Monosomy X Risk Score Text <1/10,000 (<0.01%) Monosomy X Result Text Low Risk 22q11.2 Deletion Syndrome Population-Based Risk Text 22q11.2 Deletion Syndrome Risk Score Text 22q11.2 Deletion Syndrome Result Text Low Risk Triploidy Result Text Low Risk Gender of Fetus Female Fraction 6.0% Footnotes See Notes Testing Methodology DNA isolated from maternal blood, which contains placental DNA, is amplified at specific loci using a targeted PCR assay and is sequenced using a high-throughput sequencer. fraction is determined using a proprietary algorithm incorporating data from single nucleotide polymorphism-based (SNP-based) next-generation sequencing [Perandrew E et al. Obstet Gynecol. 2014 Mar;124(2 Pt 1):210-8]. If there is sufficient fraction, sequencing data is analyzed using a proprietary SNP-based algorithm to determine the copy number for chromosomes 13, 18, 21, X and Y. If ordered, specific microdeletions will be evaluated using similar methodology [Bubba SALMERON et al. Am J Obstet Gynecol. 2015 Oct;212(3):332.e1-9]. If the fraction is insufficient, signal enhancement and/or an additional algorithm to determine whether there is an increased risk for triploidy, trisomy 18, and trisomy 13 may be utilized [Julian et al. Ultrasound Obstet Gynecol 2019; 53:73-79]. However, some samples will not produce a result due to failure to meet the necessary quality thresholds. This test has been validated on women with a xiong, twin or egg donor of at least nine weeks gestation. A result will not be available for higher order multiples and multiple gestation pregnancies with an egg donor or surrogate, or bone marrow transplant recipients. Complete test panel is not available for twin gestations and pregnancies achieved with an egg donor or surrogate. For twin pregnancies with a fraction value below the threshold for analysis, a sum of the fractions for both twins will be reported. As this assay is a screening test and not diagnostic, false positives and false negatives can occur. High risk test results need diagnostic confirmation by alternative testing methods. Low risk results do not fully exclude the diagnosis of any of the syndromes nor do they exclude the possibility of other chromosomal abnormalities or defects, which are not a part of this test. Potential sources of inaccurate results include, but are not limited to, mosaicism, low fraction, limitations of current diagnostic techniques, or misidentification of samples. This test will not identify all deletions associated with each microdeletion syndrome. This test has been validated for deletions > = 0.5 Mb within the 22q11.2 A-D region. This test has been validated on full region deletions only for 1p36 deletion syndrome, Cri-du-chat syndrome, Prader Willi syndrome and Angelman syndrome and may be unable to detect smaller deletions. Microdeletion risk score may be dependent upon fraction, as deletions on the maternally inherited copy are difficult to identify at lower fractions. Test results should always be interpreted by a clinician in the context of clinical and familial data with the availability of genetic counseling when appropriate. Disclaimers This test was performed by [facility]. [address], [place] [address] (CLIA ID [id number]). The performance characteristics of this test were developed by [facility]. This test has not been cleared or approved by the U.S. Food and Drug Administration (FDA). This laboratory is regulated under CLIA as qualified to perform high-complexity testing. 2020 [facility]. All Rights Reserved. Please refer to the attached PDF report Reviewed By: Francis Karimi M.D., Ph.D., [facility], Senior Cutter [employer] [facility] Care Consultant: Silvia Torres, Ph.D., [facility] IF THE ORDERING PROVIDER HAS QUESTIONS OR WISHES TO DISCUSS THE RESULTS, PLEASE CONTACT US AT [phone] #[phone]. Ask for the NIPT genetic counselor airborne weapons technical manager. Ct--NO CPT Reviewed date:07/14/2024 05:28:27 PM Interpretation: Performing Lab: Notes/Report: Ct Sent to Ref Lab BB ABORH-[id number] Reviewed date:07/15/2024 03:21:17 PM Interpretation: Performing Lab: Notes/Report: HOMERO Freeman Interp A POS US OB Early Gest-23120 Reviewed date:07/12/2024 11:56:06 PM Interpretation: Performing Lab: Notes/Report: See Below For Report US OB Early Gest Read See Below For Report UA Without Micro-Auto, [place] - [id number] Reviewed date:12/24/2024 08:08:43 AM Interpretation: Performing Lab: Notes/Report: Color yellow Clarity cloudy Glucose - Bili - Ketones +- Sp [place] 1.025 Blood - pH 6.0 Protein +- Urobili 0.2 Nitrites - Leukocytes +- UA Without Micro-Auto, [place] - [address] Reviewed date:12/17/2024 10:48:42 AM Interpretation: Performing Lab: Notes/Report: Color dark yellow Clarity clear Glucose - Bili - Ketones - Sp [place] 1.025 Blood - pH 6.0 Protein 1+ Urobili 0.2 Nitrites - Leukocytes - Culture Urine 43190 Reviewed date:12/07/2024 10:12:01 PM Interpretation: Performing Lab: Notes/Report: Culture Urine MILAN Bai Culture Urine t: Culture Urine Culture Urine [facility] [id number] Culture Urine n: Culture Urine Microbiology Culture Urine PROCEDURE: Culture Urine [O1] Culture Urine SOURCE: Urine BODY SITE: Culture Urine COLLECTED DATE/TIME: 12/04/2024 11:46 CDT RECEIVED DATE/TIME: 12/04/2024 20:59 CDT Culture Urine START DATE/TIME: 12/04/2024 20:59 CDT FREE TEXT SOURCE: Culture Urine FINAL REPORT Culture Urine Final Report [] Culture Urine Verified Date/Time: 12/06/2024 08:22 CDT Culture Urine <10,000 cfu/ml Mixed Superficial [place]se Culture Urine Order Comments Culture Urine O1: Culture Urine (Culture Urine [id number]) Culture Urine Diagnosis Description: Encounter for supervision of normal , unspecified, third Culture Urine trimester Culture Urine Diagnosis Description: Frequency of micturition UA Without Micro-Auto, [place] - [address] Reviewed date:12/04/2024 11:22:58 AM Interpretation: Performing Lab: Notes/Report: Color yellow Clarity cloudy Glucose - Bili - Ketones - Sp [place] 1.015 Blood - pH 6.0 Protein +- Urobili 0.2 Nitrites - Leukocytes 2+ UA Without Micro-Auto, [place] - [address] Reviewed date:11/12/2024 10:10:36 AM Interpretation: Performing Lab: Notes/Report: Color yellow Clarity cloudy Glucose - Bili - Ketones - Sp [place] 1.015 Blood - pH 7.0 Protein +- Urobili 0.2 Nitrites - Leukocytes +- GTT 1 H--57043 Reviewed date:11/13/2024 01:03:17 PM Interpretation: Performing Lab: Notes/Report: Gluc 1H 64 120-170 MG/DL Antibody Screen 85830 Reviewed date:10/23/2024 12:40:05 PM Interpretation: Performing Lab: Notes/Report: Diagnosis Description: Encounter for supervision of normal , unspecified, second trimester Blood Bank ID [id number] ABSC Interp Negative ABORh 13938, 46546 Reviewed date:10/23/2024 12:40:08 PM Interpretation: Performing Lab: Notes/Report: Diagnosis Description: Encounter for supervision of normal , unspecified, second trimester ABO/Rh Interp A POS CBC w\o Diff 11621 Reviewed date:01/19/2025 04:38:28 PM Interpretation: Performing Lab: Notes/Report: Diagnosis Description: Encounter for supervision of normal , unspecified, third trimester WBC 8.0 4.5-11.0 X10'3 RBC 4.53 4.00-5.20 X10'6 Hgb 12.6 12.0-16.0 G/DL Hct 39.7 36.0-46.0 % MCV 87.6 80.0-100.0 FL MCH 27.8 27.0-31.0 PG MCHC 31.7 31.0-37.0 G/DL Platelet 465 150-400 X10'3 RDW-SD 40.4 35.0-49.0 FL RDW-CV 12.6 12.2-15.6 % MPV 10.8 9.2-12.0 FL Thyroid Stimulating Hormone (TSH) 34708 Reviewed date:01/05/2025 06:45:30 PM Interpretation: Performing Lab: Notes/Report: TSH 3.743 .358-3.740 MlU/ML Hepatitis Panel Acute 03690 Reviewed date:01/05/2025 06:45:30 PM Interpretation: Performing Lab: Notes/Report: Hep A IgM Non-Reactive Hep.B Core IgM Non-Reactive Hepatitis Bs AG Non-Reactive Hepatitis C AB Non-Reactive Reason For Referral No Information Immunizations Vaccine Route Administration Date Status Comme nts Tdap IM Intramuscular 11/12/2024 Administered Problems Problem Type SNOMED Code ICD Code Onset Dates Problem Status W/U Status Risk Notes Problem state of fetus, 1st trimester (62642492) Encounter for supervision of normal , unspecified, first trimester (Z34.91) Active confirm Problem Obesity in mother complicating childbirth (disorder) ([id number] 00) Obesity complicating childbirth (O99.214) Active confirmed Problem Vitamin D deficiency (77084142) Vitamin D deficiency (E55.9) Active confirmed Problem Migraine (98153016) Migraine (G43.909) Active confirmed Problem Body mass index 40+ - severely obese (481547444) BMI 45.0-49.9, adult (Z68.42) Active confirmed Problem Obesity affecting in third trimester, unspecified obesity type (O99.213) Active confirmed Vital Signs Heart Rate 90 /min 01/20/2025 Respiratory Rate 18 /min 01/20/2025 Blood pressure diastolic 74 mm Hg 01/20/2025 Oximetry 99 % 01/20/2025 Height-cm 175.26 cm 01/20/2025 Weight-kg 142.07 kg 01/20/2025 Height 69 in 01/20/2025 Blood pressure systolic 120 mm Hg 01/20/2025 Weight 313.2 lbs 01/20/2025 BMI 46.25 kg/m2 01/20/2025 Encounters Encounter Location Date Provider Diagnosis [address] [place] [address] 07/11/2024 Misty Ruvalcaba 10 weeks gestation o f Z3A.[address] [place] [address] 07/14/2024 Misty Ruvalcaba Encounter for supervision of normal in first trimester, unspecified Z34.91 and Prediabetes R73.[address] [place] [address] 08/21/2024 Misty Ruvalcaba Encounter for supervision of normal in second trimester, unspecified Z34.[address] [place] [address] 09/22/2024 Misty Ruvalcaba 21 weeks gestation o f Z3A.21 and Encounter for other specified screening Z36.[address] [place] [address] 09/24/2024 Misty Ruvalcaba Encounter for supervision of normal in second trimester, unspecified Z34.[address] [place] [address] 10/22/2024 Misty Ruvalcaba High risk , antepartum O09.90 ; Obesity affecting in second trimester, unspecified obesity type O99.212 ; BMI 45.0-49.9, adult Z68.42 ; Second trimester Z34.92 and Palpitations R00.[address] [place] [address] 11/12/2024 Misty Ruvalcaba High risk , antepartum O09.90 ; Obesity affecting in third trimester, unspecified obesity type O99.213 ; BMI 45.0-49.9, adult Z68.42 ; Third trimester Z34.93 and Vaginal discharge N89.[address] [place] [address] 12/04/2024 Misty Ruvalcaba High risk , antepartum O09.90 ; Obesity affecting in third trimester, unspecified obesity type O99.213 ; BMI 45.0-49.9, adult Z68.42 ; Third trimester Z34.93 and Urinary frequency R35.[address] [place] [address] 12/17/2024 Misty Ruvalcaba Obesity affecting in third trimester, unspecified obesity type O99.213 ; BMI 45.0-49.9, adult Z68.42 and 33 weeks gestation of Z3A.[address] [place] [address] 12/17/2024 Misty Ruvalcaba High risk , antepartum O09.90 ; Obesity affecting in third trimester, unspecified obesity type O99.213 ; BMI 45.0-49.9, adult Z68.42 and Third trimester Z34.[address] [place] [address] 12/22/2024 Misty Ruvalcaba 34 weeks gestation o f Z3A.34 ; Encounter for other specified screening Z36.89 and macrosomia in third trimester, single or unspecified fetus O36.63X0 [address] [place] [address] 12/24/2024 Misty Ruvalcaba Obesity affecting in third trimester, unspecified obesity type O99.213 ; BMI 45.0-49.9, adult Z68.42 and 34 weeks gestation of Z3A.[address] [place] [address] 12/24/2024 Misty Ruvalcaba High risk , antepartum O09.90 ; Obesity affecting in third trimester, unspecified obesity type O99.213 ; BMI 45.0-49.9, adult Z68.42 ; Vitamin D deficiency E55.9 and Third trimester Z34.[address] [place] [address] 01/20/2025 Misty Ruvalcaba state Z39.2 ; Encounter for consultation for female sterilization Z30.09 and Acute vaginitis N76.[address] [place] [address] 06/04/2024 Misty Ruvalcaba [address] [place] [address] 09/04/2024 Misty Ruvalcaba [address] [place] [address] 2024 Misty Ruvalcaba [address] [place] [address] 09/24/2024 Misty Ruvalcaba [address] [place] [address] 10/07/2024 Misty Ruvalcaba [address] [place] [address] 10/24/2024 Misty Ruvalcaba [address] [place] [address] 12/10/2024 Misty Ruvalcaba [address] [place] [address] 01/01/2025 Misty Ruvalcaba [address] [place] [address] 01/05/2025 Misty Ruvalcaba Elevated liver enzymes R74.[address] [place] [address] 01/23/2025 Misty Ruvalcaba [address] [place] [address] 11/21/2024 Misty Ruvalcaba Assessments Encounter Date Diagnosis (ICD Code) Assessment Notes Treatment Notes Treatment Clinical Notes Section Notes 07/11/2024 10 weeks gestation of (ICD-10 - Z3A.10) 07/14/2024 Prediabetes (ICD-10 - R73.03) send a1c, FLT for h/o SPE 07/14/2024 Encounter for supervision of normal in first trimester, unspecified (ICD-10 - Z34.91) NOB: Send NOB labs, pap requested, Needs 18-22wk sono discussed PNS, desires screening discussed weight gain/eating healthy continue PNV, increase fluids 08/21/2024 Encounter for supervision of normal in second trimester, unspecified (ICD-10 - Z34.92) 09/22/2024 21 weeks gestation of (ICD-10 - Z3A.21) 09/22/2024 Encounter for other specified screening (ICD-10 - Z36.89) 09/24/2024 Encounter for supervision of normal in second trimester, unspecified (ICD-10 - Z34.92) Weeks 22 to 26 of Your : Care Instructions material was published 10/22/2024 High risk , antepartum (ICD-10 - O09.90) 10/22/2024 Obesity affecting in second trimester, unspecified obesity type (ICD-10 - O99.212) 11/12/2024 High risk , antepartum (ICD-10 - O09.90) 11/12/2024 Obesity affecting in third trimester, unspecified obesity type (ICD-10 - O99.213) 12/04/2024 High risk , antepartum (ICD-10 - O09.90) 12/04/2024 Obesity affecting in third trimester, unspecified obesity type (ICD-10 - O99.213) 12/17/2024 High risk , antepartum (ICD-10 - O09.90) 12/17/2024 Obesity affecting in third trimester, unspecified obesity type (ICD-10 - O99.213) 12/22/2024 34 weeks gestation of (ICD-10 - Z3A.34) 12/22/2024 Encounter for other specified screening (ICD-10 - Z36.89) 12/24/2024 BMI 45.0-49.9, adult (ICD-10 - Z68.42) 12/24/2024 Obesity affecting in third trimester, unspecified obesity type (ICD-10 - O99.213) 12/17/2024 BMI 45.0-49.9, adult (ICD-10 - Z68.42) 12/17/2024 Obesity affecting in third trimester, unspecified obesity type (ICD-10 - O99.213) 12/24/2024 High risk , antepartum (ICD-10 - O09.90) 12/24/2024 Obesity affecting in third trimester, unspecified obesity type (ICD-10 - O99.213) 01/05/2025 Elevated liver enzymes (ICD-10 - R74.8) 01/20/2025 state (ICD-10 - Z39.2) exam wnl mood good, PAP UTD, breast feeding and BTL for BCM 01/20/2025 Encounter for consultation for female sterilization (ICD-10 - Z30.09) Desires permanent sterilization. Understands that this means that she will no longer be able to have children. It is permanent, not reversible. The recommend procedure is a bilateral salpingectomy, removal of the entire fallopian tube, this decreases her lifetime risk of ovarian cancer. There is nothing left for a reversal. The only way to get after this procedure is by IVF. There is a less than 18.12/999 cumulative failure rate between all tubal procedures and less than 0.5% with bilateral salpingectomies. Discussed that if she were to become it would likely be an ectopic and could require emergency surgery. Pt counseled that there is a 20% risk of regret with pt younger than 30yo. Declined other methods of control including pills, DMPA, LARCs. Pt was consented in the clinic by me. Discussed the risks of bleeding, infection, and damage to surrounding organs, pt understands and desires the procedure. Accepts blood if needed. SCHEDULE for dx lsc/BS/AOIP 01/20/2025 Acute vaginitis (ICD-10 - N76.0) ureaplasma Needs doxy 100mg BID x 7days, followed by azithromycin 500mg Daily x 7 days, Partner needs treated, no intercourse x 4 weeks, retest at 4 weeks Needs probiotic and eat with Abx 12/17/2024 BMI 45.0-49.9, adult (ICD-10 - Z68.42) 12/24/2024 BMI 45.0-49.9, adult (ICD-10 - Z68.42) 12/22/2024 macrosomia in third trimester, single or unspecified fetus (ICD-10 - O36.63X0) 12/24/2024 34 weeks gestation of (ICD-10 - Z3A.34) 12/17/2024 33 weeks gestation of (ICD-10 - Z3A.33) 12/04/2024 BMI 45.0-49.9, adult (ICD-10 - Z68.42) 11/12/2024 BMI 45.0-49.9, adult (ICD-10 - Z68.42) 10/22/2024 BMI 45.0-49.9, adult (ICD-10 - Z68.42) 10/22/2024 Second trimester (ICD-10 - Z34.92) 11/12/2024 Third trimester (ICD-10 - Z34.93) 12/04/2024 Third trimester (ICD-10 - Z34.93) 12/17/2024 Third trimester (ICD-10 - Z34.93) Weeks 34 to 36 of Your : Care Instructions material was published 12/24/2024 Vitamin D deficiency (ICD-10 - E55.9) 12/24/2024 Third trimester (ICD-10 - Z34.93) Week 37 of Your : Care Instructions material was published 11/12/2024 Vaginal discharge (ICD-10 - N89.8) 12/04/2024 Urinary frequency (ICD-10 - R35.0) 10/22/2024 Palpitations (ICD-10 - R00.2) 08/21/2024 Other Weeks 18 to 22 of Your : Care Instructions material was published 10/22/2024 Other Weeks 26 to 30 of Your : Care Instructions material was published 11/12/2024 Other Weeks 30 to 32 of Your : Care Instructions material was published 12/04/2024 Other Weeks 32 to 34 of Your : Care Instructions material was published 01/20/2025 Other After Your Delivery (the Period): Care Instructions material was published Plan Of Treatment Pending Test Test Name Order Date Comprehensive Metabolic Panel (CMP) 8005 3 01/05/2025 Magnesium (B) 36871 01/05/2025 Phosphorus (B) 62725 01/05/2025 SYPHILIS TEST, QUAL (RPR) 44778 11/13/19 25 Vitamin D Total (B) 53356 12/24/2024 CBC w\o Diff 93671 11/12/2024 HIV 1/2 Ag/Ab Screen--37498,10987 2024 Next Appt Details Provider Name:Misty snow, 02/27/2025 08:30:00 AM, [address] [place] [address] [address], [place], [address], Insurance Providers Payer Name Payer Address Payer Phone Subscriber Number Group Number Insured Name Patient Relationship to Insured Coverage Start Date Coverage End Date [place] [address] [place] [phone] [id number] MILAN Cazares Self - patient is the insured [facility] Medicaid Replacement [address] [place] [phone] [id number] MILAN Cazares Self - patient is the insured Medical (General) History Surgical History Surgery Date(Month/Year) left ankle/leg oral Hospitalization History Reason Date(Month/Year) BH - childbirth 01.02.25 ED - Chest pain during ; [facility] o completed 12.24.24
[2025-02-20 23:01] VITALS: BP 134/86; PULSE 67; RESP 16; TEMP 36.9; O2SAT 96; BMI 46.5
--- NOTE | 2025-02-21 00:02 | USR_ITS ---
PROCEDURE INFORMATION: Exam: US Abdomen, Limited; Right Upper Quadrant Exam date and time: 02/21/2025 12:33 AM Age: 24 years old Clinical indication: Abdominal pain; Localized; Right upper quadrant (ruq); Additional info: Ruq pain TECHNIQUE: Imaging protocol: Real time ultrasound of the abdomen with image documentation. Limited exam focused on the right upper quadrant. COMPARISON: US OB >= 14 weeks fetus [facility] 11/09/2021 8:06 AM FINDINGS: Liver: Normal. No masses. Gallbladder: Numerous stones within the gallbladder lumen. Gallbladder wall measuring 3 mm. No identified pericholecystic fluid. Biliary ducts: Normal. No stones. No dilation. Pancreas: Visualized pancreas is unremarkable. Right kidney: Normal. No mass. No hydronephrosis. Right kidney measuring 11.1 x 4.6 x 4.4 cm. US/US gall bladder [id number] IMPRESSION: Cholelithiasis without definitive secondary findings of acute calculus cholecystitis.
[2025-02-21 00:07] LABS: Glucose Urine UA Negative (Normal); Nitrate Urine Negative (Negative); Specific Gravity, Urine 1.023 (1.005-1.030)
[2025-02-21 00:09] LABS: Add Urine Microscopic? YES
--- NOTE | 2025-02-21 00:11 | W.ED.ABDPA2 ---
Documented by User: Donis Moody MD 02/21/25 01:53 HPI - Abdominal Pain General: Chief Complaint: Abdominal Pain Stated Complaint: abd pain Time Seen by Provider: 02/20/25 23:48 History of Present Illness: Patient presents emerged part with complaint of right upper quadrant abdominal pain. Been having intermittent epigastric and right upper quadrant Ren pain for several months now. Had an ultrasound that showed gallbladder stones and sludge but she was at the time. She is 6 weeks . Went to go see surgery was going to do an upper endoscopy however patient decided to cancel that. Today started having worsening pain. She states she is on Pepcid and a PPI.. She states sometimes the pain is worsened by food but not always. Related Data Home Medications ?Medication ?Instructions ?Recorded ?Confirmed bismuth subsalicylate 262 mg/15 mL 524 mg PO Q1H PRN upset stomach 02/21/25 02/21/25 oral suspension (Pepto-Bismol) calcium carbonate 500 mg PO TID 02/21/25 02/21/25 famotidine 20 mg tablet (Pepcid) 20 mg PO BID 02/21/25 02/21/25 Previous Rx's ?Medication ?Instructions ?Recorded pantoprazole 40 mg tablet,delayed 40 mg PO BID 6 weeks #84 tabs 02/09/25 release (Protonix) promethazine 25 mg tablet 25 mg PO Q6H PRN nausea and 02/21/25 vomiting #20 tabs Allergies Allergy/AdvReac Type Severity Reaction Status Date / Time No Known Allergies Allergy Verified 02/20/25 23:06 PFSH ED PFSH: Medical History Menorrhagia with regular cycle No pertinent past medical history neghx: htn,dm,heart,lung,liver,kidney,thyroid,dvt PCP: [facility] Surgical History Hx of fracture of leg (~10/2020) L leg and ankle Hx of wisdom tooth extraction (~10/2016) Family History Mother Thyroid disease Family/Other Breast cancer Paternal Great Aunt, Paternal Great Grandmother-- dx age unknown Grandfather Hypertension Maternal Stroke Paternal Grandmother Diabetes Maternal Denies family history of Colon cancer Ovarian cancer Heart disease Bleeding disorder Uterine cancer Social History Smoking and tobacco/nicotine status: never used tobacco/nicotine Additional social history: - Tobacco use: Never Alcohol use: Never Drug use: Never Physical Exam Neck/C-Spine: COMMON NORMALS: no JVD Resp: COMMON NORMALS: normal respiratory effort, No retractions, No use of accessory muscles, clear to auscultation bilaterally and percussion normal AUSCULTATION: clear to auscultation bilaterally PERCUSSION: percussion normal Cardio: COMMON NORMALS: no JVD, regular rate, regular rhythm, S1 normal heart sound present, S2 normal heart sound present, No gallops present (Cardio), No clicks present (Cardio), No murmurs present (Cardio), No rub (Cardio) and Peripheral pulses 2+ throughout RATE: regular rate RHYTHM: regular rhythm HEART SOUNDS: S1 normal heart sound present and S2 normal heart sound present PERIPHERAL PULSES: Peripheral pulses 2+ throughout GI: COMMON NORMALS: Normal to inspection, nondistended, normoactive bowel sounds present, Soft to palpation, No hepatosplenomegaly present, no masses and no bruits PALPATION: Yes Soft to palpation and Yes No hepatosplenomegaly present OTHER: Right upper quadrant tenderness to palpation Course Vital Signs: Vital signs: Vital Signs Temperature 98.4 F 02/20/25 23:01 Pulse Rate 59 L 02/21/25 06:34 Respiratory Rate 16 02/21/25 06:34 Blood Pressure 125/68 02/21/25 06:34 Pulse Oximetry 99 02/21/25 06:34 Oxygen Delivery Me thod Room Air 02/21/25 06:34 MDM - Abdominal Pain Medical Decision Making Patient presents with right upper quadrant abdominal pain. Been having symptoms off and on for several months. Had previous ultrasound that showed gallstones but did not have surgery due to being . She is about 6 weeks . Pain worsened again tonight. Ultrasound tonight shows cholelithiasis. Does have mildly elevated LFTs and elevated lipase. Cannot rule out acute choledocholithiasis so we will get MRCP in the morning. No MRI here tonight but should be able to get MRCP first thing the morning. Patient comfortable with this plan. She is no longer having any pain at this moment. Care turned over to Dr. Hinson. Lab Data 02/20/25 00:12 02/21/25 09:30 Labs/Radiology: Radiology Impressions Gallbladder Ultrasound 02/21/25 00:02 IMPRESSION: Cholelithiasis without definitive secondary findings of acute calculus cholecystitis. Cholangiopancreatography MRI 02/21/25 01:50 IMPRESSION: Cholelithiasis with no changes of acute cholecystitis or choledocholithiasis. No biliary dilatation. Laboratory Results WBC 12.33 10^3/uL (3.29-11.43) H 02/20/25 00:12 RBC 4.57 10^6/uL (3.85-5.65) 02/20/25 00:12 Hgb 12.60 g/dL (11.27-16.99) 02/20/25 00:12 Hct 38.9 % (36-47) 02/20/25 00:12 MCV 85.1 fl (85-98) 02/20/25 00:12 MCH 27.6 pg (27-33) 02/20/25 00:12 MCHC 32.4 g/dL (30-55) 02/20/25 00:12 RDW 13.2 % (12.1-15.1) 02/20/25 00:12 Plt Count 377 10^3/cmm (157-399) 02/20/25 00:12 MPV 10.0 fL (7.4-10.4) 02/20/25 00:12 Neut % (Auto) 67.4 % 02/20/25 00:12 Lymph % (Auto) 23.7 % 02/20/25 00:12 [place] % (Auto) 6.9 % 02/20/25 00:12 Eos % (Auto) 1.2 % 02/20/25 00:12 Baso % (Auto) 0.6 % 02/20/25 00:12 Neut # (Auto) 8.31 10^3/uL (1.8-7.7) H 02/20/25 00:12 Lymph # (Auto) 2.9 10^3/uL (0.8-4.8) 02/20/25 00:12 [place] # (Auto) 0.9 10^3/uL (0.2-0.9) 02/20/25 00:12 Eos # (Auto) 0.2 10^3/uL (0.0-0.8) 02/20/25 00:12 Baso # (Auto) 0.1 10^3/uL (0.0-0.1) 02/20/25 00:12 Nucleated RBC % (auto) 0 % 02/20/25 00:12 Nucleated RBCs # 0.0 /100WBC 02/20/25 00:12 Sodium 140 mmol/L (136-145) 02/21/25 09:30 Potassium 4.2 mmol/L (3.5-5.1) 02/21/25 09:30 Chloride 102 mmol/L (98-107) 02/21/25 09:30 Carbon Dioxide 24 mmol/L (22-29) 02/21/25 09:30 Anion Gap 18.2 (5-19) 02/21/25 09:30 BUN 18 mg/dL (6-20) 02/21/25 09:30 Creatinine 0.9 mg/dL (0.5-0.9) 02/21/25 09:30 GFR Calculation 77.6 mL/min (90-130) L 02/21/25 09:30 Glucose 91 mg/dL (65-115) 02/21/25 09:30 Calculated Osmolality 291 mOsm/kg (285-295) 02/21/25 09:30 Calcium 9.4 mg/dL (8.5-10.5) 02/21/25 09:30 Total Bilirubin 0.3 mg/dL (0.15-1.2) 02/21/25 09:30 AST 44 U/L (0-32) H 02/21/25 09:30 ALT 57 U/L (0-33) H 02/21/25 09:30 Alkaline Phosphatase 110 U/L (35-105) H 02/21/25 09:30 Total Protein 7.0 g/dL (6.6-8.7) 02/21/25 09:30 Albumin 4.1 g/dL (3.5-5.2) 02/21/25 09:30 Globulin 2.9 g/dL (1.3-4.6) 02/21/25 09:30 Lipase 41 U/L (13-60) 02/21/25 09:30 Urine Color Yellow (Yellow) 02/20/25 23:56 Urine Appearance Clear (CLEAR) 02/20/25 23:56 Urine pH 7.0 (5-7) 02/20/25 23:56 Ur Specific [place] 1.023 (1.005-1.030) 02/20/25 23:56 Urine Protein Negative (Negative) 02/20/25 23:56 Urine Glucose (UA) Negative (Normal) 02/20/25 23:56 Urine Ketones Trace (Negative) 02/20/25 23:56 Urine Blood Negative (Negative) 02/20/25 23:56 Urine Nitrate Negative (Negative) 02/20/25 23:56 Urine Bilirubin Negative (Negative) 02/20/25 23:56 Urine Urobilinogen 1.0 mg/dL (Negative) 02/20/25 23:56 Ur Leukocyte Esterase Negative (Negative) 02/20/25 23:56 Urine RBC 0-2 /hpf (0-2) 02/20/25 23:56 Urine WBC 0-5 /hpf (0-5) 02/20/25 23:56 Ur Squamous Epith Cells 0-5 /hpf (0-5) 02/20/25 23:56 Amorphous Sediment Not Reportable 02/20/25 23:56 Urine Bacteria None seen /hpf (NONE) 02/20/25 23:56 Hyaline Casts 0-4 /lpf H 02/20/25 23:56 Discharge Plan Discharge Patient Disposition: Home Clinical Impression: Cholelithiasis, Biliary colic Condition: Stable Prescriptions: New promethazine 25 mg tablet 25 mg PO Q6H PRN (Reason: nausea and vomiting) Qty: 20 0RF No Action pantoprazole [Protonix] 40 mg tablet,delayed release (DR/EC) 40 mg PO BID 42 Days Qty: 84 1RF famotidine [Pepcid] 20 mg Tablet 20 mg PO BID bismuth subsalicylate [Pepto-Bismol] 262 mg/15 mL Suspension 524 mg PO Q1H PRN (Reason: upset stomach) Rx Instructions: do not exceed 8 doses in a 24 hour period calcium carbonate [Tums 500] 500 mg calcium (1,250 mg) Tablet,Chewable 500 mg PO TID Discharge Orders: Discharge ED (Routine); Ordered 02/21/25 Ordered By: Maico Hinson Referrals: Delmi Cooney NP [Primary Care Provider, Urgent Care] Patient Instructions: Biliary Colic (ED), Gallstones (ED), Abdominal Pain (ED), Opioid Safety, Pain Management, Patient Portal & Jen Instructions Activity Restrictions/Additional Instructions: Thank you for choosing [facility] for your healthcare needs today. It is very important that you follow up as instructed or that you return to the Emergency Department should you have concerns or if your condition changes or worsens in any way. You are seen in the emergency room with elevated liver enzymes and pancreas enzymes on recheck they had all are all trending down. Imaging shows stones in the gallbladder but no stones in the common bile duct. At this point he can be discharged home recommend he continue pantoprazole avoid red meats fatty foods fried foods dairy products citrus fruits or juices and tomato based products. Follow-up with Dr. Hendrix in the office for further evaluation including possible EGD and consideration of cholecystectomy based on the findings today in the ER. Print Language: Singaporean Sign Out Sign Out Data: Patient Sign Out occurred on 02/21/25 at 06:19. Patient's care was discussed, and care was transferred from Donis Moody MD to Maico Hinson DO. Coding Level of Care Code ED Install And Repair Technician for Chg Fwd Documented by User: Maico Hinson DO 02/21/25 10:22 HPI - Abdominal Pain General: Chief Complaint: Abdominal Pain Stated Complaint: abd pain Time Seen by Provider: 02/20/25 23:48 Related Data Home Medications ?Medication ?Instructions ?Recorded ?Confirmed bismuth subsalicylate 262 mg/15 mL 524 mg PO Q1H PRN upset stomach 02/21/25 02/21/25 oral suspension (Pepto-Bismol) calcium carbonate 500 mg PO TID 02/21/25 02/21/25 famotidine 20 mg tablet (Pepcid) 20 mg PO BID 02/21/25 02/21/25 Previous Rx's ?Medication ?Instructions ?Recorded pantoprazole 40 mg tablet,delayed 40 mg PO BID 6 weeks #84 tabs 02/09/25 release (Protonix) promethazine 25 mg tablet 25 mg PO Q6H PRN nausea and 02/21/25 vomiting #20 tabs Allergies Allergy/AdvReac Type Severity Reaction Status Date / Time No Known Allergies Allergy Verified 02/20/25 23:06 PFSH ED PFSH: Medical History Menorrhagia with regular cycle No pertinent past medical history neghx: htn,dm,heart,lung,liver,kidney,thyroid,dvt PCP: [facility] Surgical History Hx of fracture of leg (~10/2020) L leg and ankle Hx of wisdom tooth extraction (~10/2016) Family History Mother Thyroid disease Family/Other Breast cancer Paternal Great Aunt, Paternal Great Grandmother-- dx age unknown Grandfather Hypertension Maternal Stroke Paternal Grandmother Diabetes Maternal Denies family history of Colon cancer Ovarian cancer Heart disease Bleeding disorder Uterine cancer Social History Smoking and tobacco/nicotine status: never used tobacco/nicotine Additional social history: - Tobacco use: Never Alcohol use: Never Drug use: Never Course Vital Signs: Vital signs: Vital Signs Temperature 98.4 F 02/20/25 23:01 Pulse Rate 59 L 02/21/25 06:34 Respiratory Rate 16 02/21/25 06:34 Blood Pressure 125/68 02/21/25 06:34 Pulse Oximetry 99 02/21/25 06:34 Oxygen Delivery Me thod Room Air 02/21/25 06:34 MDM - Abdominal Pain Medical Decision Making Patient presents with right upper quadrant abdominal pain. Been having symptoms off and on for several months. Had previous ultrasound that showed gallstones but did not have surgery due to being . She is about 6 weeks . Pain worsened again tonight. Ultrasound tonight shows cholelithiasis. Does have mildly elevated LFTs and elevated lipase. Cannot rule out acute choledocholithiasis so we will get MRCP in the morning. No MRI here tonight but should be able to get MRCP first thing the morning. Patient comfortable with this plan. She is no longer having any pain at this moment. Care turned over to Dr. Hinson. Care assumed at change of shift MRCP read as negative for choledocholithiasis or acute cholecystitis. Her symptoms have completely resolved. She ate some barbecue ribs last night which I think precipitated the biliary colic. Her lipase was elevated 155 as well on repeat exam she has no symptoms at all although her abdominal pain has resolved. I suspect she will eventually need her gallbladder removed. Will repeat liver functions and lipase if trending down anticipate discharge home. Lipase normalized. Liver functions trending down patient asymptomatic will discharge home have her follow-up with general surgery Medical Records I reviewed the patient's medical records. Lab Data I reviewed the patient's lab results. 02/20/25 00:12 02/21/25 09:30 Labs/Radiology: Radiology Impressions Gallbladder Ultrasound 02/21/25 00:02 IMPRESSION: Cholelithiasis without definitive secondary findings of acute calculus cholecystitis. Cholangiopancreatography MRI 02/21/25 01:50 IMPRESSION: Cholelithiasis with no changes of acute cholecystitis or choledocholithiasis. No biliary dilatation. Laboratory Results WBC 12.33 10^3/uL (3.29-11.43) H 02/20/25 00:12 RBC 4.57 10^6/uL (3.85-5.65) 02/20/25 00:12 Hgb 12.60 g/dL (11.27-16.99) 02/20/25 00:12 Hct 38.9 % (36-47) 02/20/25 00:12 MCV 85.1 fl (85-98) 02/20/25 00:12 MCH 27.6 pg (27-33) 02/20/25 00:12 MCHC 32.4 g/dL (30-55) 02/20/25 00:12 RDW 13.2 % (12.1-15.1) 02/20/25 00:12 Plt Count 377 10^3/cmm (157-399) 02/20/25 00:12 MPV 10.0 fL (7.4-10.4) 02/20/25 00:12 Neut % (Auto) 67.4 % 02/20/25 00:12 Lymph % (Auto) 23.7 % 02/20/25 00:12 [place] % (Auto) 6.9 % 02/20/25 00:12 Eos % (Auto) 1.2 % 02/20/25 00:12 Baso % (Auto) 0.6 % 02/20/25 00:12 Neut # (Auto) 8.31 10^3/uL (1.8-7.7) H 02/20/25 00:12 Lymph # (Auto) 2.9 10^3/uL (0.8-4.8) 02/20/25 00:12 [place] # (Auto) 0.9 10^3/uL (0.2-0.9) 02/20/25 00:12 Eos # (Auto) 0.2 10^3/uL (0.0-0.8) 02/20/25 00:12 Baso # (Auto) 0.1 10^3/uL (0.0-0.1) 02/20/25 00:12 Nucleated RBC % (auto) 0 % 02/20/25 00:12 Nucleated RBCs # 0.0 /100WBC 02/20/25 00:12 Sodium 140 mmol/L (136-145) 02/21/25 09:30 Potassium 4.2 mmol/L (3.5-5.1) 02/21/25 09:30 Chloride 102 mmol/L (98-107) 02/21/25 09:30 Carbon Dioxide 24 mmol/L (22-29) 02/21/25 09:30 Anion Gap 18.2 (5-19) 02/21/25 09:30 BUN 18 mg/dL (6-20) 02/21/25 09:30 Creatinine 0.9 mg/dL (0.5-0.9) 02/21/25 09:30 GFR Calculation 77.6 mL/min (90-130) L 02/21/25 09:30 Glucose 91 mg/dL (65-115) 02/21/25 09:30 Calculated Osmolality 291 mOsm/kg (285-295) 02/21/25 09:30 Calcium 9.4 mg/dL (8.5-10.5) 02/21/25 09:30 Total Bilirubin 0.3 mg/dL (0.15-1.2) 02/21/25 09:30 AST 44 U/L (0-32) H 02/21/25 09:30 ALT 57 U/L (0-33) H 02/21/25 09:30 Alkaline Phosphatase 110 U/L (35-105) H 02/21/25 09:30 Total Protein 7.0 g/dL (6.6-8.7) 02/21/25 09:30 Albumin 4.1 g/dL (3.5-5.2) 02/21/25 09:30 Globulin 2.9 g/dL (1.3-4.6) 02/21/25 09:30 Lipase 41 U/L (13-60) 02/21/25 09:30 Urine Color Yellow (Yellow) 02/20/25 23:56 Urine Appearance Clear (CLEAR) 02/20/25 23:56 Urine pH 7.0 (5-7) 02/20/25 23:56 Ur Specific [place] 1.023 (1.005-1.030) 02/20/25 23:56 Urine Protein Negative (Negative) 02/20/25 23:56 Urine Glucose (UA) Negative (Normal) 02/20/25 23:56 Urine Ketones Trace (Negative) 02/20/25 23:56 Urine Blood Negative (Negative) 02/20/25 23:56 Urine Nitrate Negative (Negative) 02/20/25 23:56 Urine Bilirubin Negative (Negative) 02/20/25 23:56 Urine Urobilinogen 1.0 mg/dL (Negative) 02/20/25 23:56 Ur Leukocyte Esterase Negative (Negative) 02/20/25 23:56 Urine RBC 0-2 /hpf (0-2) 02/20/25 23:56 Urine WBC 0-5 /hpf (0-5) 02/20/25 23:56 Ur Squamous Epith Cells 0-5 /hpf (0-5) 02/20/25 23:56 Amorphous Sediment Not Reportable 02/20/25 23:56 Urine Bacteria None seen /hpf (NONE) 02/20/25 23:56 Hyaline Casts 0-4 /lpf H 02/20/25 23:56 All radiology interpretation(s) finalized by discharge Discharge Plan Discharge Patient Disposition: Home Clinical Impression: Cholelithiasis, Biliary colic Condition: Stable Prescriptions: New promethazine 25 mg tablet 25 mg PO Q6H PRN (Reason: nausea and vomiting) Qty: 20 0RF No Action pantoprazole [Protonix] 40 mg tablet,delayed release (DR/EC) 40 mg PO BID 42 Days Qty: 84 1RF famotidine [Pepcid] 20 mg Tablet 20 mg PO BID bismuth subsalicylate [Pepto-Bismol] 262 mg/15 mL Suspension 524 mg PO Q1H PRN (Reason: upset stomach) Rx Instructions: do not exceed 8 doses in a 24 hour period calcium carbonate [Tums 500] 500 mg calcium (1,250 mg) Tablet,Chewable 500 mg PO TID Discharge Orders: Discharge ED (Routine); Ordered 02/21/25 Ordered By: Maico Hinson Referrals: Delmi Cooney NP [Primary Care Provider, Urgent Care] Patient Instructions: Biliary Colic (ED), Gallstones (ED), Abdominal Pain (ED), Opioid Safety, Pain Management, Patient Portal & Jen Instructions Activity Restrictions/Additional Instructions: [email or web address]. It is very important that you follow up as instructed or that you return to the Emergency Department should you have concerns or if your condition changes or worsens in any way. You are seen in the emergency room with elevated liver enzymes and pancreas enzymes on recheck they had all are all trending down. Imaging shows stones in the gallbladder but no stones in the common bile duct. At this point he can be discharged home recommend he continue pantoprazole avoid red meats fatty foods fried foods dairy products citrus fruits or juices and tomato based products. Follow-up with Dr. Hendrix in the office for further evaluation including possible EGD and consideration of cholecystectomy based on the findings today in the ER. Print Language: Singaporean Sign Out Sign Out Data: Patient Sign Out occurred on 02/21/25 at 06:19. Patient's care was discussed, and care was transferred from Donis Moody MD to Maico Hinson DO. Coding Level of Care Code ED Install And Repair Technician for Chg Stanislav
[2025-02-21] MEDS: ondansetron 2 mg/ML SDV 2 mL 4 MG IVP (00:18)
[2025-02-21 00:19] LABS: Hematocrit 38.9 % (36-47); Hemoglobin 12.60 g/dL (11.27-16.99); Mean Corpuscular HGB Conc 32.4 g/dL (30-55); Mean Corpuscular Hemoglobin 27.6 pg (27-33); Mean Corpuscular Volume 85.1 fl (85-98); Nucleated Red Blood Cells % 0 %; Platelet Count 377 10^3/cmm (157-399); Red Blood Count 4.57 10^6/uL (3.85-5.65); White Blood Count 12.33 10^3/uL (3.29-11.43)
[2025-02-21 00:31] VITALS: BP 124/46; PULSE 78; RESP 16; O2SAT 97
[2025-02-21 00:36] LABS: Alanine Aminotransferase 74 U/L (0-33); Albumin Level 4.4 g/dL (3.5-5.2); Alkaline Phosphatase 122 U/L (35-105); Anion Gap 18.4 (5-19); Aspartate Amino Transferase 104 U/L (0-32); Blood Urea Nitrogen 17 mg/dL (6-20); Calcium 9.6 mg/dL (8.5-10.5); Carbon Dioxide 24 mmol/L (22-29); Chloride 101 mmol/L (98-107); Creatinine Clr Calc Pharmacy 133.8056; Globulin 3.4 g/dL (1.3-4.6); Glucose 103 mg/dL (65-115); Lipase 188 U/L (13-60); Osmolality Calculated 290 mOsm/kg (285-295); Potassium 4.4 mmol/L (3.5-5.1); Sodium 139 mmol/L (136-145); Total Protein 7.8 g/dL (6.6-8.7)
[2025-02-21 01:30] VITALS: BP 119/57; PULSE 62; RESP 16; O2SAT 99
--- NOTE | 2025-02-21 01:50 | MRR_ITS ---
PROCEDURE INFORMATION: Exam: MR Abdomen Without Contrast, Biliary System Exam date and time: 02/21/2025 7:51 AM Age: 24 years old Clinical indication: Abdominal pain; Additional info: Ruq pain TECHNIQUE: Imaging protocol: MR of the abdomen without contrast. Exam focused on the biliary system and pancreatic ducts. Routine 3D-MRCP images were acquired and processed without radiologist supervision. COMPARISON: US gall bladder [id number] 02/21/2025 12:33 AM FINDINGS: Liver: No mass. Gallbladder and biliary ducts: Multiple gallstones are seen. No pericholecystic fluid. No CBD stone. No biliary dilatation the CBD measures 6 mm at the liu hepatis. Pancreas: Unremarkable. No ductal dilation. Intraperitoneal space: No fluid collection. MR/MR MRCP [id number] IMPRESSION: Cholelithiasis with no changes of acute cholecystitis or choledocholithiasis. No biliary dilatation.
[2025-02-21 02:30] VITALS: BP 116/57; PULSE 62; RESP 16; O2SAT 98
[2025-02-21 03:30] VITALS: BP 117/60; PULSE 69; RESP 16; O2SAT 97
[2025-02-21 06:34] VITALS: BP 125/68; PULSE 59; RESP 16; O2SAT 99
[2025-02-21 09:58] LABS: Alanine Aminotransferase 57 U/L (0-33); Albumin Level 4.1 g/dL (3.5-5.2); Alkaline Phosphatase 110 U/L (35-105); Anion Gap 18.2 (5-19); Aspartate Amino Transferase 44 U/L (0-32); Blood Urea Nitrogen 18 mg/dL (6-20); Calcium 9.4 mg/dL (8.5-10.5); Carbon Dioxide 24 mmol/L (22-29); Chloride 102 mmol/L (98-107); Creatinine Clr Calc Pharmacy 148.6728; Globulin 2.9 g/dL (1.3-4.6); Glucose 91 mg/dL (65-115); Lipase 41 U/L (13-60); Osmolality Calculated 291 mOsm/kg (285-295); Potassium 4.2 mmol/L (3.5-5.1); Sodium 140 mmol/L (136-145); Total Protein 7.0 g/dL (6.6-8.7)
[2025-02-21 10:19] VITALS: PULSE 67; O2SAT 99
== END 2025-02-21 10:22 | disposition home or self-care (01) ==
PROVIDERS: Emergency Medicine; Emergency Provider Family Medicine; PCP Nurse Practitioner Family
DX: K80.20 Calculus of gallbladder without cholecystitis without obstruction (principal); K80.50 Calculus of bile duct without cholangitis or cholecystitis without obstruction
CPT/HCPCS: 36415; 74181; 76705; 80053; 81001; 83690; 85025; 96374; 96375; 99284; J1885; J2405

== ENCOUNTER 2025-07-02 20:36 | Emergency (ER) | payer BC, MEDICAID, SELFPAY ==
--- OUTSIDE RECORDS SUMMARY | 2025-01-07 03:00 | XMS_ITS ---
Author Organization [facility] Address [address] [place] [address] Care Team Providers Care Data Steward Name Role Phone Tricia Haro Primary Care Provider Misty [place] [phone] REASON FOR VISIT NST Encounters Encounter Location Date Provider Diagnosis [address] [place] [address] 01/07/2025 Misty Ruvalcaba Plan Of Treatment Next Appt Details Provider Name:Misty snow, 11/16/2025 04:15:00 PM, [address] [place] [address] [address], [place], [address], Progress Notes * MILAN BURGERDOB:2000 (24 yo F)Acc No.[id number]:01/07/2025 Patient: Lakeisha sampson MILAN Provider: Alyson Ruvalcaba MD :2000 A ge:24 Y S ex:Female Date:01/07/2025 Address[id number] Pcp:WILLIAM Fernando Subjective: * Chief Complaints: * N ST * Research Physicist History: M enarche:Time since last menstrual period: 04/28/2024. * OB History: G P : 2 * Electronic signature of Tomas Ruvalcaba MD on 07/02/2025 at 08:43 PM COMMERCIAL LITIGATION ASSOCIATE Sign off status: Pending * Provider: Alyson Ruvalcaba MD Date: 0 01/07/2025 Generated for Ankur mejias/Mehdi/Anali on: 1 09/01/2024 08:43 PM COMMERCIAL LITIGATION ASSOCIATE
--- OUTSIDE RECORDS SUMMARY | 2025-01-07 04:00 | XMS_ITS ---
Author Organization [facility] Address [address] [place] [address] Care Team Providers Care Student Development Specialist Name Role Phone Tricia Haro Primary Care Provider Misty [place] [phone] REASON FOR VISIT 1 WK Encounters Encounter Location Date Provider Diagnosis [address] [place] [address] 01/07/2025 Misty Ruvalcaba Plan Of Treatment Next Appt Details Provider Name:Misty Solorzano ers, 11/16/2025 04:15:00 PM, [address] [place] [address] [address], [place], [address], Progress Notes * MILAN BURGERDOB:2000 (24 yo F)Acc No.[id number]:01/07/2025 Patient: Lakeisha mckeoncamillaMILAN judge Provider: Alyson Ruvalcaba MD :2000 A ge:24 Y S ex:Female Date:01/07/2025 Address:[address] [id number] Pcp:WILLIAM Fernando Subjective: * Chief Complaints: * 1 WK * Electronic signature of Tomas Ruvalcaba MD on 07/02/2025 at 08:43 PM MAIL HANDLERS SUPERVISOR Sign off status: Pending * Provider: Alyson Ruvalcaba MD Date: 0 01/07/2025 Generated for Printi ng/Faxing/eTransmitting on: 09/01/2024 08:43 PM MAIL HANDLERS SUPERVISOR
--- OUTSIDE RECORDS SUMMARY | 2025-01-14 03:15 | XMS_ITS ---
Author Organization [facility] Address [address] [place] [address] Care Team Providers Care Dials Inspector Name Role Phone Tricia Haro Primary Care Provider Misty [place] [phone] REASON FOR VISIT NST Encounters Encounter Location Date Provider Diagnosis [address] [place] [address] 01/14/2025 Misty Ruvalcaba Plan Of Treatment Next Appt Details Provider Name:Misty Solorzano ers, 11/16/2025 04:15:00 PM, [address] [place] [address] [address], [place], [address], Progress Notes * MILAN BURGERDOB:2000 (24 yo F)Acc No.[id number]:01/14/2025 Patient: Lakeisha mckeoncamillaMILAN judge Provider: Alyson Ruvalcaba MD :2000 A ge:24 Y S ex:Female Date:01/14/2025 Address[address] [phone] Pcp:WILLIAM Fernando Subjective: * Chief Complaints: * N ST * Electronic signature of Tomas Ruvalcaba MD on 07/02/2025 at 08:43 PM DIE CAST TECHNICIAN Sign off status: Pending * Provider: Alyson Ruvalcaba MD Date: 0 01/14/2025 Generated for Printi ng/Faxing/eTransmitting on: 1 09/01/2024 08:43 PM DIE CAST TECHNICIAN
--- OUTSIDE RECORDS SUMMARY | 2025-01-14 04:15 | XMS_ITS ---
Author Organization [facility] Address [address] [place] [address] Care Team Providers Care Cancer Genetics Assistant Name Role Phone Tricia Haro Primary Care Provider Misty [place] [phone] REASON FOR VISIT 1 WK Encounters Encounter Location Date Provider Diagnosis [address] [place] [address] 01/14/2025 Misty Ruvalcaba Plan Of Treatment Next Appt Details Provider Name:Misty Solorzano ers, 11/16/2025 04:15:00 PM, [address] [place] [address] [address], [place], [address], Progress Notes * MILAN BURGERDOB:2000 (24 yo F)Acc No.[id number]:01/14/2025 Patient: Lakeisha mckeoncamillaMILAN judge Provider: Alyson Ruvalcaba MD :2000 A ge:24 Y S ex:Female Date:01/14/2025 Address:[address] [phone] Pcp:WILLIAM Fernando Subjective: * Chief Complaints: * 1 WK * Electronic signature of Tomas Ruvalcaba MD on 07/02/2025 at 08:43 PM LEAD HOUSEKEEPER Sign off status: Pending * Provider: Alyson Ruvalcaba MD Date: 0 01/14/2025 Generated for Printi ng/Faxing/eTransmitting on: 1 09/01/2024 08:43 PM LEAD HOUSEKEEPER
--- OUTSIDE RECORDS SUMMARY | 2025-01-21 03:15 | XMS_ITS ---
Author Organization [facility] Address [address] [place] [address] Care Team Providers Care Collateral Clerk Name Role Phone Tricia Haro Primary Care Provider Misty [place] [phone] REASON FOR VISIT NST Encounters Encounter Location Date Provider Diagnosis [address] [place] [address] 01/21/2025 Misty Ruvalcaba Plan Of Treatment Next Appt Details Provider Name:Misty Solorzano ers, 11/16/2025 04:15:00 PM, [address] [place] [address] [address], [place], [address], Progress Notes * MILAN BURGERDOB:2000 (24 yo F)Acc No.[id number]:01/21/2025 Patient: Lakeisha MILAN sampson Provider: Alyson Ruvalcaba MD :2000 A ge:24 Y S ex:Female Date:01/21/2025 Address:[address] [id number] Pcp:WILLIAM Fernando Subjective: * Chief Complaints: * N ST * Electronic signature of Tomas Ruvalcaba MD on 07/02/2025 at 08:42 PM BRICK WHEELER Sign off status: Pending * Provider: Alyson Ruvalcaba MD Date: 0 01/21/2025 Generated for Printi ng/Faxing/eTransmitting on: 1 09/01/2024 08:42 PM BRICK WHEELER
--- OUTSIDE RECORDS SUMMARY | 2025-01-21 04:15 | XMS_ITS ---
Author Organization [facility] Address [address] [place] [address] Care Team Providers Care Yeast Supervisor Name Role Phone Tricia Haro Primary Care Provider Misty [place] [phone] REASON FOR VISIT 1 WK Encounters Encounter Location Date Provider Diagnosis [address] [place] [address] 01/21/2025 Misty Ruvalcaba Plan Of Treatment Next Appt Details Provider Name:Misty Solorzano ers, 11/16/2025 04:15:00 PM, [address] [place] [address] [address], [place], [address], Progress Notes * MILAN BURGERDOB:2000 (24 yo F)Acc No.[id number]:01/21/2025 Patient: Lakeisha MILAN sampson Provider: Alyson Ruvalcaba MD :2000 A ge:24 Y S ex:Female Date:01/21/2025 Address:[address] [phone] Pcp:WILLIAM Fernando Subjective: * Chief Complaints: * 1 WK * Electronic signature of Tomas Ruvalcaba MD on 07/02/2025 at 08:43 PM CONVERTER SKIMMER Sign off status: Pending * Provider: Alyson Ruvalcaba MD Date: 0 01/21/2025 Generated for Printi ng/Faxing/eTransmitting on: 1 09/01/2024 08:43 PM CONVERTER SKIMMER
--- OUTSIDE RECORDS SUMMARY | 2025-02-27 02:30 | XMS_ITS ---
Author Organization [facility] Address [address] [place] [address] Care Team Providers Care Digital Marketing Coordinator Name Role Phone Tricia Haro Primary Care Provider Misty Cheatham [phone] REASON FOR VISIT BTL Encounters Encounter Location Date Provider Diagnosis [address] [place] [address] 02/27/2025 Misty Ruvalcaba Plan Of Treatment Next Appt Details Provider Name:Misty Solorzano ers, 11/16/2025 04:15:00 PM, [address] [place] [address] [address], [place], [address], Progress Notes * MILAN BURGERDOB:2000 (24 yo F)Acc No.[id number]:02/27/2025 Patient: Lakeisha MILAN sampson Provider: Alyson Ruvalcaba MD :2000 A ge:24 Y S ex:Female Date:02/27/2025 Address:[id number] Pcp:WILLIAM Fernando Billing Information: * Procedure Codes: * Electronic signature of Tomas Ruvalcaba MD on 07/02/2025 at 08:44 PM FOOD CLERK Sign off status: Pending * Provider: Alyson Ruvalcaba MD Date: 0 02/27/2025 Generated for Printi ng/Faxing/eTransmitting on: 1 09/01/2024 08:44 PM FOOD CLERK
--- OUTSIDE RECORDS SUMMARY | 2025-03-26 08:45 | XMS_ITS ---
Author Organization [facility] Address [address] [place] [address] Care Team Providers Care Companion Caregiver Name Role Phone Tricia Haro Primary Care Provider Misty Cheatham Unavailable [phone] REASON FOR VISIT 4 WK POST OP Encounters Encounter Location Date Provider Diagnosis [address] [place] [address] 03/26/2025 Misty Ruvalcaba Plan Of Treatment Next Appt Details Provider Name:Misty Solorzano ers, 11/16/2025 04:15:00 PM, [address] [place] [address] [address], [place], [address], Progress Notes * MILNA BURGERDOB:2000 (24 yo F)Acc No.[id number]:03/26/2025 Patient: Lakeisha MILAN sampson Provider: Alyson Ruvalcaba MD :2000 A ge:24 Y S ex:Female Date:03/26/2025 [facility] [place] [id number] Pcp:WILLIAM Fernando Subjective: * Chief Complaints: * 4 WK POST OP * Electronic signature of Tomas Ruvalcaba MD on 07/02/2025 at 08:43 PM RESIDUE FURNACE OPERATOR Sign off status: Pending * Provider: Alyson Ruvalcaba MD Date: 0 03/26/2025 Generated for Ankur mejias/Mehdi/eTransmitting on: 1 09/01/2024 08:43 PM RESIDUE FURNACE OPERATOR
[2025-07-02 20:39] VITALS: BP 137/83; PULSE 101; RESP 20; TEMP 36.9; O2SAT 99; BMI 44.3
--- OUTSIDE RECORDS SUMMARY | 2025-07-02 20:44 | XMS_ITS | Patient Health Record ---
Author Organization [facility] Address [address] [place] [address] Care Team Providers Care Electronic Security Specialist Name Role Phone Tricia Haro Primary Care Provider Unav Misty Bauhg Unavailable [phone] IrvinDonovan wilson Unavailable [phone] Allergies No Known Allergies Results Component Value Reference Range Flag Notes UA Without Micro-Auto, [place] - [id number] Reviewed date:10/22/2024 10:34:10 AM Interpretation: Performing Lab: Notes/Report: Color dark yellow Clarity cloudy Glucose - Bili 1+ Ketones - Sp Austin 1.020 Blood - pH 6.0 Protein +- Urobili 0.2 Nitrites - Leukocytes - ABORh 91248, 62624 Reviewed date:10/23/2024 12:40:08 PM Interpretation: Performing Lab: Notes/Report: Diagnosis Description: Encounter for supervision of normal , unspecified, second trimester ABO/Rh Interp A POS Unknown Antibody Screen [id number] Reviewed date:10/23/2024 12:40:05 PM Interpretation: Performing Lab: Notes/Report: Diagnosis Description: Encounter for supervision of normal , unspecified, second trimester Blood Bank ID [id number] Unknown ABSC Interp Negative GTT 1 H--[id number] Reviewed date:11/13/2024 01:03:17 PM Interpretation: Performing Lab: Notes/Report: Gluc 1H 64 120-170 MG/DL LOW UA Without Micro-Auto, [place] - [id number] Reviewed date:12/24/2024 08:08:43 AM Interpretation: Performing Lab: Notes/Report: Color yellow Clarity cloudy Glucose - Bili - Ketones +- Sp Austin 1.025 Blood - pH 6.0 Protein +- Urobili 0.2 Nitrites - Leukocytes +- US OB Early Gest-[id number] Reviewed date:07/12/2024 11:56:06 PM Interpretation: Performing Lab: Notes/Report: See Below For Report US OB Early Gest Read See Below For Report Horizon 14 (BOCANEGRA-ETHNIC STAND ANTONIO) Reviewed date:07/23/2024 11:47:01 AM Interpretation: Performing Lab: Notes/Report: Report Summary Negative N Negative f or 14 out of 14 diseases. Alpha-Thalassemia Negative N Beta-Hemoglobinopath ies Negative N Waldo Disease Negative N Cystic Fibrosis Negative N Duchenne/Dia Muscular Dystrophy Negative N Familial Dysautonomia Negative N Fragile X Syndrome Negative N NEGATIVE Fragile X Syndrome results 30 and 29 CGG repeats were detected in the FMR1 genes. Galactosemia Negative N Gaucher Disease Negative N Medium Chain Acyl-CoA Dehydrogenase Deficiency Negative N Polycystic Kidney Disease, Autosomal Recessive Negative N Olauc-Nujpk-Zgfnj Syndrome Negative N Spinal Muscular Atrophy Negative N NEGATIVE Spinal Muscular Atrophy (SMA) Results SMN1: Two copies; [id number]>G: absent; the absence of the g.51437F>G variant decreases the chance to be a silent (2+0) carrier. Adeel-Sachs Disease Negative N Panel Notes See Notes Report Note See Notes Footnotes See Notes CLIA ID #[id number] Test performed by [facility]. : [address] [place] [address] CLIA Instructor Looping: Silvia Torres, Ph.D., [facility] Please see the attached PDF for information regarding Conditions, Methodology, Disclaimers, and further information. Panorama Test Reviewed date:07/21/2024 08:06:45 AM Interpretation: Performing Lab: Notes/Report: Report Summary LOW RISK N LOW RISK Report Note See Notes N Trisomy 13 Age-Based Risk Text 08/26,826 (0.01%) N Trisomy 13 Risk Score Text <1/10,000 (<0.01%) N Trisomy 13 Result Text Low Risk N Trisomy 18 Age-Based Risk Text 08/21,484 (0.04%) N Trisomy 18 Risk Score Text <1/10,000 (<0.01%) N Trisomy 18 Result Text Low Risk N Trisomy 21 Age-Based Risk Text 1/1,068 (0.09%) N Trisomy 21 Risk Score Text <110,000 (<0.01%) N Trisomy 21 Result Text Low Risk N Monosomy X Age-Based Risk Text 255 (0.39%) N Monosomy X Risk Score Text <110,000 (<0.01%) N Monosomy X Result Text Low Risk N 22q11.2 Deletion Syndrome Population-Based Risk Text N 22q11.2 Deletion Syndrome Risk Score Text N 22q11.2 Deletion Syndrome Result Text Low Risk N Triploidy Result Text Low Risk N Gender of Fetus Female Fraction 6.0% Footnotes See Notes DNA isolated from maternal blood, which contains [...] failure to meet the necessary quality thresholds. Reviewed By: Francis Karimi M.D., Ph.D., [facility], Senior Erp Developer MASOOD Instructor Looping: Silvia Torres, Ph.D., [facility] This test has been validated on women [...] the availability of genetic counseling when appropriate. Testing Methodology This test was performed by [facility]. [address], [place] [address] (CLIA ID [id number]). The performance characteristics of this test were developed by [facility]. This test has not been cleared or approved by the U.S. Food and Drug Administration (FDA). This laboratory is regulated under CLIA as qualified to perform high-complexity testing. 2020 [facility]. All Rights Reserved. Please refer to the attached PDF report Disclaimers IF THE ORDERING PROVIDER HAS QUESTIONS OR WISHES TO DISCUSS THE RESULTS, PLEASE CONTACT US AT [phone] #[phone]. Ask for the [facility] genetic counselor semiconductor packages tester. ABORh 58456, [address] Reviewed date:01/02/2025 12:28:16 PM Interpretation: Performing Lab: Notes/Report: ABO/Rh Interp A POS Unknown SYPHILIS TEST, QUAL (RPR) 86 592 Reviewed date:01/02/2025 12:28:16 PM Interpretation: Performing Lab: Notes/Report: Syphilis Screen Non-Reactive NA Testing performed via [employer] IM analyzer. This assay is a Chemiluminescent Microparticle Immunoassay for the detection of Treponemal antibodies. Reactive samples will be confirmed via RPR w/Reflex to Titer in accordance with CDC's recommended reverse sequence screening algorithm. Antibody Screen [id number] Reviewed date:01/02/2025 12:28:16 PM Interpretation: Performing Lab: Notes/Report: Blood Bank ID [id number] Unknown ABSC Interp Negative Magnesium (B) 39704 Reviewed date:01/05/2025 12:37:28 AM Interpretation: Performing Lab: Notes/Report: Magnesium >10 1.8-2.4 MG/DL NA Sample miri ected while mg was running, ordering Dr requested note be attached that explains high level so that mg didnt have to be stopped and pt recollected a 2nd time. 01/03/2025 21:04:50 JT Comprehensive Metabolic Pane l (CMP) 10451 Reviewed date:01/05/2025 12:37:28 AM Interpretation: Performing Lab: Notes/Report: Glucose Serum 91 71-110 MG/DL Testing p erformed at [facility], [address] [place] [address] [place] [address]. CLIA ID#: [id number] BUN <5 7-21 MG/DL LOW Creat .56 .51-1.17 MG/DL Use of this assay is not recommended for patients undergoing treatment with phenindione, due to the potential for falsely depressed results. Q-fdzxpr-m-benzoquinon e imine (NAPQI) is a metabolite of acetaminophen, NAPQI concentrations of apparoximately 10 mg/L correlation to toxic levels of acetaminophen demonstrates a greater than or equil to 10% change in results. NAPQI concentrations greater than this may lead to falsely depressed results for patient samples. GFR 144.7 NA Calculation pe rformed from GFR calculator provided by the National Kidney Foundation. Glomerular Filtration rate(GRF) is the best overall index of kidney function. Normal GFR varies according to age,sex, body size, and declines with age. The National Kidney Foundation recommends using the CKD-EPI Creatinine Equation(2020) to estimate GFR. BUN/Creat Ratio <8.9 12.0-20.0 % LOW Total Protein 5.1 5.8-8.0 G/DL LOW Albumin 3.0 3.2-4.8 G/DL LOW Globulin 2.1 2.3-3.5 G/DL LOW Alb/Glob 1.4 0.8-2.2 Calcium 7.2 8.7-10.4 MG/DL LOW Sodium 133 136-145 MMOL/L LOW Potassium 3.8 3.5-5.1 MMOL/L Chloride 104 98-107 MMOL/L CO2 21.1 20.0-31.0 MMOL/L Anion Gap 12 5-15 Alk Phos 138 46-116 HI Bili Total .3 .3-1.2 MG/DL Use of this assay is not recommended for patients undergoing treatment with eltrombopag due to the potential for falsely elevated results. AST/SGOT 48 15-37 UNIT/L HI ALT/SGPT 70 12-78 UNIT/L Magnesium (B) 65417 Reviewed date:01/05/2025 12:37:28 AM Interpretation: Performing Lab: Notes/Report: Magnesium 4.2 1.8-2.4 MG/DL HI CBC w\o Diff 51011 Reviewed date:01/19/2025 04:38:28 PM Interpretation: Performing Lab: Notes/Report: Diagnosis Description: Encounter for supervision of normal , unspecified, third trimester WBC 8.0 4.5-11.0 X10'3 RBC 4.53 4.00-5.20 X10'6 Hgb 12.6 12.0-16.0 G/DL Hct 39.7 36.0-46.0 % MCV 87.6 80.0-100.0 FL MCH 27.8 27.0-31.0 PG MCHC 31.7 31.0-37.0 G/DL Platelet 465 150-400 X10'3 HI RDW-SD 40.4 35.0-49.0 FL RDW-CV 12.6 12.2-15.6 % MPV 10.8 9.2-12.0 FL SYPHILIS TEST, QUAL (RPR) 86 592 Reviewed date:01/19/2025 04:38:48 PM Interpretation: Performing Lab: Notes/Report: Diagnosis Description: Encounter for supervision of normal , unspecified, third trimester Syphilis Screen Non-Reactive NA Testing performed via [email or web address] IM analyzer. This assay is a Chemiluminescent Microparticle Immunoassay for the detection of Treponemal antibodies. Reactive samples will be confirmed via RPR w/Reflex to Titer in accordance with CDC's recommended reverse sequence screening algorithm. Vitamin D Total (B) 28106 Reviewed date:01/19/2025 04:38:51 PM Interpretation: Performing Lab: Notes/Report: Diagnosis Description: Vitamin D deficiency, unspecified Diagnosis Description: Encounter for supervision of normal , unspecified, third trimester Vitamin D Total 40.7 30.0-100.0 ng/mL Deficiency: < 20 ng/mL Performed on the [employer] IM Analyzer Sufficiency: 30???100 ng/mL Insufficiency: 20??? < 30 ng/mL HIV 1/2 Ag/Ab Screen--59904, 64391 Reviewed date:01/19/2025 04:38:53 PM Interpretation: Performing Lab: Notes/Report: Diagnosis Description: Encounter for supervision of normal , unspecified, third trimester HIV 1/2 Ag/Ab Combo Non-Reactive NA Scr eening test only. Reactive samples will be sent out for confirmation. Phosphorus (B) 11723 Reviewed date:01/19/2025 04:38:46 PM Interpretation: Performing Lab: Notes/Report: Diagnosis Description: Abnormal levels of other serum enzymes Phos 5.5 2.4-5.1 MG/DL HI Magnesium (B) 50065 Reviewed date:01/19/2025 04:38:42 PM Interpretation: Performing Lab: Notes/Report: Diagnosis Description: Abnormal levels of other serum enzymes Magnesium 1.9 1.8-2.4 MG/DL Comprehensive Metabolic Pane l (CMP) 68002 Reviewed date:01/19/2025 04:38:40 PM Interpretation: Performing Lab: Notes/Report: Diagnosis Description: Abnormal levels of other serum enzymes Glucose Serum 68 71-110 MG/DL LOW Testing p erformed at [facility], [address] [place] [address] [place] [address]. CLIA ID#: [id number] BUN 19 7-21 MG/DL Creat .83 .51-1.17 MG/DL Use of this assay is not recommended for patients undergoing treatment with phenindione, due to the potential for falsely depressed results. R-hangpe-l-benzoquinon e imine (NAPQI) is a metabolite of acetaminophen, NAPQI concentrations of apparoximately 10 mg/L correlation to toxic levels of acetaminophen demonstrates a greater than or equil to 10% change in results. NAPQI concentrations greater than this may lead to falsely depressed results for patient samples. GFR 101.6 NA Calculation pe rformed from GFR calculator provided by the National Kidney Foundation. Glomerular Filtration rate(GRF) is the best overall index of kidney function. Normal GFR varies according to age,sex, body size, and declines with age. The National Kidney Foundation recommends using the CKD-EPI Creatinine Equation(2020) to estimate GFR. BUN/Creat Ratio 22.9 12.0-20.0 % HI Total Protein 7.0 5.8-8.0 G/DL Albumin 4.7 3.2-4.8 G/DL Globulin 2.3 2.3-3.5 G/DL Alb/Glob 2.0 0.8-2.2 Calcium 9.5 8.7-10.4 MG/DL Sodium 138 136-145 MMOL/L Potassium 4.9 3.5-5.1 MMOL/L Chloride 104 98-107 MMOL/L CO2 25.7 20.0-31.0 MMOL/L Anion Gap 13 5-15 Alk Phos 102 46-116 Bili Total .4 .3-1.2 MG/DL Use of this assay is not recommended for patients undergoing treatment with eltrombopag due to the potential for falsely elevated results. AST/SGOT 21 15-37 UNIT/L ALT/SGPT 27 12-78 UNIT/L Osmo Serum,Calculated 286 280-300 MOSM/KG CBC w\ Auto Diff 13833 Reviewed date:01/01/2025 05:58:25 PM Interpretation: Performing Lab: Notes/Report: WBC 8.4 4.5-11.0 X10'3 RBC 4.04 4.00-5.20 X10'6 Hgb 11.5 12.0-16.0 G/DL LOW Hct 35.0 36.0-46.0 % LOW MCV 86.6 80.0-100.0 FL MCH 28.5 27.0-31.0 PG MCHC 32.9 31.0-37.0 G/DL Platelet 290 150-400 X10'3 RDW-SD 40.2 35.0-49.0 FL RDW-CV 12.6 12.2-15.6 % MPV 10.7 9.2-12.0 FL Neutro Auto% 73.4 40.0-70.0 % HI Lymph Auto% 14.2 22.0-44.0 % LOW [place] Auto% 10.1 3.0-7.0 % HI Eos Auto% .7 2.0-4.0 % LOW Baso Auto% 0.6 0.0-1.0 % Imm Gran% 1.0 .0-.4 % HI Neutro Abs 6.17 .80-7.70 Absolute Neutrophil Count 6170 NA Lymph Abs 1.19 .10-4.10 Charles [place] Abs .85 .20-1.00 Eos Abs .06 .00-.40 Baso Abs .05 .00-.20 Imm Gran Abs .08 .00-.10 NRBC# .00 .00-.20 X10'3 NRBC% .00 .00-.20 /100 intact WBC's Comprehensive Metabolic Pane l (CMP) 83052 Reviewed date:01/01/2025 05:58:25 PM Interpretation: Performing Lab: Notes/Report: Glucose Serum 86 71-110 MG/DL Testing p erformed at [facility], [address] [place] [address] [place] [address]. CLIA ID#: [id number] BUN 7 7-21 MG/DL Creat .55 .51-1.17 MG/DL Use of this assay is not recommended for patients undergoing treatment with phenindione, due to the potential for falsely depressed results. X-duhrum-q-benzoquinon e imine (NAPQI) is a metabolite of acetaminophen, NAPQI concentrations of apparoximately 10 mg/L correlation to toxic levels of acetaminophen demonstrates a greater than or equil to 10% change in results. NAPQI concentrations greater than this may lead to falsely depressed results for patient samples. GFR 131.6 NA Calculation pe rformed from GFR calculator provided by the National [...] 4.0 3.5-5.1 MMOL/L Chloride 109 98-107 MMOL/L HI CO2 18.3 20.0-31.0 MMOL/L LOW Anion Gap 14 5-15 Alk Phos 157 46-116 HI Bili Total .4 .3-1.2 MG/DL Use of this assay is not recommended for patients undergoing treatment with eltrombopag due to the potential for falsely elevated results. AST/SGOT 72 15-37 UNIT/L HI ALT/SGPT 67 12-78 UNIT/L Osmo Serum,Calculated 281 280-300 MOSM/KG Magnesium (B) 23488 Reviewed date:01/01/2025 05:58:25 PM Interpretation: Performing Lab: Notes/Report: Magnesium 1.7 1.8-2.4 MG/DL LOW Phosphorus (B) 54559 Reviewed date:01/01/2025 05:58:25 PM Interpretation: Performing Lab: Notes/Report: Phos 3.7 2.4-5.1 MG/DL Protein (U) Random 93661 Reviewed date:01/02/2025 12:28:16 PM Interpretation: Performing Lab: Notes/Report: Ur Prot 138.20 .00-12.00 MG/DL HI Creatinine (U) 80673 Reviewed date:01/02/2025 12:28:16 PM Interpretation: Performing Lab: Notes/Report: Ur Creat 401.3 29.0-226.0 HI Comprehensive Metabolic Pane l (CMP) 34442 Reviewed date:01/03/2025 02:47:02 AM Interpretation: Performing Lab: Notes/Report: Glucose Serum 92 71-110 MG/DL Testing p erformed at [facility], [address] [place] [address] [place] [address]. CLIA ID#: [id number] BUN <5 7-21 MG/DL LOW Creat .62 .51-1.17 MG/DL Use of this assay is not recommended for patients undergoing treatment with phenindione, due to the potential for falsely depressed results. N-uwwvsg-k-benzoquinon e imine (NAPQI) is a metabolite of acetaminophen, NAPQI concentrations of apparoximately 10 mg/L correlation to toxic levels of acetaminophen demonstrates a greater than or equil to 10% change in results. NAPQI concentrations greater than this may lead to falsely depressed results for patient samples. GFR 128.1 NA Calculation pe rformed from GFR calculator provided by the National Kidney Foundation. Glomerular Filtration rate(GRF) is the best overall index of kidney function. Normal GFR varies according to age,sex, body size, and declines with age. The National Kidney Foundation recommends using the CKD-EPI Creatinine Equation(2020) to estimate GFR. BUN/Creat Ratio <8.1 12.0-20.0 % LOW Total Protein 6.1 5.8-8.0 G/DL Albumin 3.6 3.2-4.8 G/DL Globulin 2.4 2.3-3.5 G/DL Alb/Glob 1.5 0.8-2.2 Calcium 7.3 8.7-10.4 MG/DL LOW Sodium 135 136-145 MMOL/L LOW Potassium 3.8 3.5-5.1 MMOL/L Chloride 103 98-107 MMOL/L CO2 21.6 20.0-31.0 MMOL/L Anion Gap 14 5-15 Alk Phos 166 46-116 HI Bili Total .6 .3-1.2 MG/DL Use of this assay is not recommended for patients undergoing treatment with eltrombopag due to the potential for falsely elevated results. AST/SGOT 92 15-37 UNIT/L HI ALT/SGPT 98 12-78 UNIT/L HI Magnesium (B) 07616 Reviewed date:01/03/2025 02:47:02 AM Interpretation: Performing Lab: Notes/Report: Magnesium 5.0 1.8-2.4 MG/DL HI [place] [address], 8 3250 Reviewed date:01/05/2025 03:58:31 PM Interpretation: Performing Lab: Notes/Report: WBC 13.6 4.5-11.0 X10'3 HI RBC 4.15 4.00-5.20 X10'6 Hgb 11.8 12.0-16.0 G/DL LOW Hct 36.2 36.0-46.0 % MCV 87.2 80.0-100.0 FL MCH 28.4 27.0-31.0 PG MCHC 32.6 31.0-37.0 G/DL Platelet 333 150-400 X10'3 RDW-SD 41.1 35.0-49.0 FL RDW-CV 12.9 12.2-15.6 % MPV 10.1 9.2-12.0 FL Review Auto Diff Conf WBC Auto Diff--07894 Reviewed date:01/05/2025 03:58:31 PM Interpretation: Performing Lab: Notes/Report: Added by Discern Rules Neutro Auto% 67.3 40.0-70.0 % Lymph Auto% 20.5 22.0-44.0 % LOW Charles Mix Auto% 6.3 3.0-7.0 % Eos Auto% 4.0 2.0-4.0 % Baso Auto% 0.7 0.0-1.0 % NRBC% .00 .00-.20 /100 intact WBC's Neutro Abs 9.15 .80-7.70 HI Absolute Neutrophil Count 9150 NA Lymph Abs 2.79 .10-4.10 Charles [place] Abs .86 .20-1.00 Eos Abs .54 .00-.40 HI Baso Abs .10 .00-.20 NRBC# .00 .00-.20 X10'3 Imm Gran Abs .17 .00-.10 HI Imm Gran% 1.2 .0-.4 % HI UA Without Micro-Auto, [place] - [address] Reviewed date:09/24/2024 10:53:10 AM Interpretation: Performing Lab: Notes/Report: Color dark yellow Clarity clear Glucose - Bili - Ketones -+ Sp [place] 1.015 Blood - pH 6.0 Protein -+ Urobili 0.2 Nitrites - Leukocytes - [id number] 96891 Reviewed date:03/02/2025 05:05:49 PM Interpretation: Performing Lab: Notes/Report: [id number] Negative HCG was per formed at [facility] under CLIA# [id number] Control HCG Valid POCT-HCG Performed By Simona DOE Thyroid Stimulating Hormone (TSH) 50894 Reviewed date:01/05/2025 06:45:30 PM Interpretation: Performing Lab: Notes/Report: TSH 3.743 .358-3.740 MlU/ML HI Hepatitis Panel Acute 06260 Reviewed date:01/05/2025 06:45:30 PM Interpretation: Performing Lab: Notes/Report: Hep A IgM Non-Reactive NA Hep.B Core IgM Non-Reactive NA Hepatitis Bs AG Non-Reactive NA Hepatitis C AB Non-Reactive NA Magnesium (B) 55650 Reviewed date:01/05/2025 12:37:28 AM Interpretation: Performing Lab: Notes/Report: Magnesium 6.3 1.8-2.4 MG/DL OK Comprehensive Metabolic Pane l (CMP) 27355 Reviewed date:01/05/2025 12:37:28 AM Interpretation: Performing Lab: Notes/Report: Glucose Serum 98 71-110 MG/DL Testing p erformed at [facility], [address] [place] [address] [place] [address]. CLIA ID#: [id number] BUN <5 7-21 MG/DL LOW Creat .58 .51-1.17 MG/DL Use of this assay is not recommended for patients undergoing treatment with phenindione, due to the potential for falsely depressed results. F-ruyuqf-t-benzoquinon e imine (NAPQI) is a metabolite of acetaminophen, NAPQI concentrations of apparoximately 10 mg/L correlation to toxic levels of acetaminophen demonstrates a greater than or equil to 10% change in results. NAPQI concentrations greater than this may lead to falsely depressed results for patient samples. GFR 130.2 NA Calculation pe rformed from GFR calculator provided by the National Kidney Foundation. Glomerular Filtration rate(GRF) is the best overall index of kidney function. Normal GFR varies according to age,sex, body size, and declines with age. The National Kidney Foundation recommends using the CKD-EPI Creatinine Equation(2020) to estimate GFR. BUN/Creat Ratio <8.6 12.0-20.0 % LOW Total Protein 5.5 5.8-8.0 G/DL LOW Albumin 3.4 3.2-4.8 G/DL Globulin 2.1 2.3-3.5 G/DL LOW Alb/Glob 1.6 0.8-2.2 Calcium 6.7 8.7-10.4 MG/DL LOW Sodium 137 136-145 MMOL/L Potassium 3.9 3.5-5.1 MMOL/L Chloride 108 98-107 MMOL/L HI CO2 21.3 20.0-31.0 MMOL/L Anion Gap 12 5-15 Alk Phos 158 46-116 HI Bili Total .4 .3-1.2 MG/DL Use of this assay is not recommended for patients undergoing treatment with eltrombopag due to the potential for falsely elevated results. AST/SGOT 63 15-37 UNIT/L HI ALT/SGPT 83 12-78 UNIT/L HI CBC w\o Diff 09663 Reviewed date:01/05/2025 12:37:28 AM Interpretation: Performing Lab: Notes/Report: WBC 14.7 4.5-11.0 X10'3 HI RBC 3.69 4.00-5.20 X10'6 LOW Hgb 10.6 12.0-16.0 G/DL LOW Hct 31.4 36.0-46.0 % LOW MCV 85.1 80.0-100.0 FL MCH 28.7 27.0-31.0 PG MCHC 33.8 31.0-37.0 G/DL Platelet 274 150-400 X10'3 RDW-SD 38.9 35.0-49.0 FL RDW-CV 12.6 12.2-15.6 % MPV 10.5 9.2-12.0 FL Culture Urine Reflex--[id number] Reviewed date:01/05/2025 12:37:28 AM Interpretation: Performing Lab: Notes/Report: Culture Urine Reflex MILAN Bai Culture Urine Reflex t: Culture Urine Reflex Culture Urine Reflex [facility] [id number] Culture Urine Reflex n: Culture Urine Reflex Microbiology Culture Urine Reflex PROCEDURE: Culture Urine Reflex [] Culture Urine Reflex SOURCE: U CC BODY SITE: Culture Urine Reflex COLLECTED DATE/TIME: 01/02/2025 18:38 CDT RECEIVED DATE/TIME: 01/02/2025 18:44 CDT Culture Urine Reflex START DATE/TIME: 01/02/2025 18:44 CDT FREE TEXT SOURCE: Culture Urine Reflex FINAL REPORT Culture Urine Reflex Final Report [] Culture Urine Reflex Verified Date/Time: 01/04/2025 09:26 CDT Culture Urine Reflex No growth at 48 hours UA Microscopic--99507 Reviewed date:01/02/2025 10:01:07 PM Interpretation: Performing Lab: Notes/Report: Micro UA ordered by [employer] Expert Rules system. RBC U 608 NA WBC U 36 0-5 /HPF HI Bacteria None Seen Hyaline Casts 4 NA SQ EPI 15 NA UA Without Micro-Auto, [place] - [address] Reviewed date:12/17/2024 10:48:42 AM Interpretation: Performing Lab: Notes/Report: Color dark yellow Clarity clear Glucose - Bili - Ketones - Sp [place] 1.025 Blood - pH 6.0 Protein 1+ Urobili 0.2 Nitrites - Leukocytes - Vitamin C (B) 95364 Reviewed date:10/25/2024 12:00:53 PM Interpretation: Performing Lab: Notes/Report: Diagnosis Description: Palpitations Vitamin C 37 23-114 UMOL/L NA Performed By: [facility] [address] Erp Developer: Pradeep Marquez MD, PhD (mg/dL), multiply the result by 0.0176. (umol/L). To convert concentration to milligrams per deciliter Vitamin C concentrations lower than 11 umol/L indicate deficiency. This test was developed [place] [address] CLIA Number: [id number] clinical purposes. moderate risk of deficiency due to inadequate tissue stores. approved by the [place] Food and Drug Administration. This test was Concentrations between 11 and 23 umol/L are consistent with a determined by [facility]. It has not been cleared or Vitamin C concentration is reported as micromoles per liter performed in a CLIA certified laboratory and is intended for CBC w\o Diff 61208 Reviewed date:10/23/2024 12:40:58 PM Interpretation: Performing Lab: Notes/Report: Diagnosis Description: Palpitations WBC 15.0 4.5-11.0 X10'3 HI RBC 4.22 4.00-5.20 X10'6 Hgb 12.5 12.0-16.0 G/DL Hct 37.0 36.0-46.0 % MCV 87.7 80.0-100.0 FL MCH 29.6 27.0-31.0 PG MCHC 33.8 31.0-37.0 G/DL Platelet 370 150-400 X10'3 RDW-SD 41.9 35.0-49.0 FL RDW-CV 13.1 12.2-15.6 % MPV 10.9 9.2-12.0 FL Vitamin D Total (B) 76962 Reviewed date:10/24/2024 08:01:08 AM Interpretation: Performing Lab: Notes/Report: Diagnosis Description: Palpitations Vitamin D Total 14.1 30.0-100.0 ng/mL LOW Performed on the [employer] IM Analyzer Deficiency: < 20 ng/mL Sufficiency: 30???100 ng/mL Insufficiency: 20??? < 30 ng/mL Vitamin B12 (B) 95650 Reviewed date:10/23/2024 12:40:13 PM Interpretation: Performing Lab: Notes/Report: Diagnosis Description: Palpitations [id number] 334 211-911 pg/mL Thyroid Stimulating Hormone (TSH) 92402 Reviewed date:10/23/2024 12:41:59 PM Interpretation: Performing Lab: Notes/Report: Diagnosis Description: Palpitations TSH 1.737 .358-3.740 MlU/ML Phosphorus (B) 14915 Reviewed date:10/23/2024 12:41:00 PM Interpretation: Performing Lab: Notes/Report: Diagnosis Description: Palpitations Phos 3.2 2.4-5.1 MG/DL Magnesium (B) 07467 Reviewed date:10/24/2024 08:00:35 AM Interpretation: Performing Lab: Notes/Report: Diagnosis Description: Palpitations Magnesium 1.6 1.8-2.4 MG/DL LOW Comprehensive Metabolic Pane l (CMP) 39231 Reviewed date:10/23/2024 12:40:45 PM Interpretation: Performing Lab: Notes/Report: Diagnosis Description: Palpitations Glucose Serum 64 71-110 MG/DL LOW Testing p erformed at [facility], [address] [place] [address] [place] [address]. CLIA ID#: [id number] BUN 10 7-21 MG/DL Creat .55 .51-1.17 MG/DL C-cigmnn-k-benzoquinon e imine (NAPQI) is a metabolite of acetaminophen, [...] potential for falsely depressed results. GFR 132.1 NA Calculation pe rformed from GFR calculator provided by the National [...] 9.1 8.7-10.4 MG/DL Sodium 135 136-145 MMOL/L LOW Potassium 4.4 3.5-5.1 MMOL/L Chloride 101 98-107 MMOL/L CO2 23.5 20.0-31.0 MMOL/L Anion Gap 15 5-15 Alk Phos 111 46-116 Bili Total .2 .3-1.2 MG/DL LOW Use of this assay is not recommended for patients undergoing treatment with eltrombopag due to the potential for falsely elevated results. AST/SGOT 18 15-37 UNIT/L ALT/SGPT 25 12-78 UNIT/L Osmo Serum,Calculated 277 280-300 MOSM/KG LOW [facility] Micro-Auto[facility] [place] [facility] [id number] Reviewed date:07/14/2024 11:05:07 AM Interpretation: Performing Lab: Notes/Report: Color yellow Clarity clear Glucose - Bili - Ketones - Sp [place] 1.020 Blood - pH 6.0 Protein - Urobili 0.2 Nitrites - Leukocytes - ABORh 75615, 70212 Reviewed date:07/15/2024 03:20:54 PM Interpretation: Performing Lab: Notes/Report: Diagnosis Description: Encounter for supervision of normal , unspecified, first trimester ABO/Rh Interp A POS Unknown Antibody Screen [id number] Reviewed date:07/15/2024 03:20:10 PM Interpretation: Performing Lab: Notes/Report: Diagnosis Description: Encounter for supervision of normal , unspecified, first trimester Blood Bank ID OPO Unknown ABSC Interp Negative Culture Urine [id number] Reviewed date:07/16/2024 12:03:15 PM Interpretation: Performing Lab: Notes/Report: Culture Urine MILAN Bai Culture Urine t: Culture Urine Culture Urine Accessio [id number] Culture Urine n: Culture Urine Microbiology Culture Urine PROCEDURE: Culture Urine [O1] Culture Urine SOURCE: Urine BODY SITE: Culture Urine COLLECTED DATE/TIME: 07/14/2024 10:54 REAL TIME ANALYST RECEIVED DATE/TIME: 07/14/2024 20:51 REAL TIME ANALYST Culture Urine START DATE/TIME: 07/14/2024 20:52 REAL TIME ANALYST FREE TEXT SOURCE: Culture Urine FINAL REPORT Culture Urine Final Report [] Culture Urine Verified Date/Time: 07/16/2024 06:12 REAL TIME ANALYST Culture Urine <10,000 cfu/ml Mixed Superficial Therese Culture Urine Order Comments Culture Urine O1: Culture Urine (Culture Urine 16150) Culture Urine Diagnosis Description: Encounter for supervision of normal , unspecified, first Culture Urine trimester Basic Metabolic Panel (BMP) 25034 Reviewed date:07/15/2024 03:20:18 PM Interpretation: Performing Lab: Notes/Report: Diagnosis Description: Encounter for supervision of normal , unspecified, first trimester Sodium 136 136-145 MMOL/L Potassium 4.4 3.5-5.1 MMOL/L Chloride 104 98-107 MMOL/L CO2 23.7 20.0-31.0 MMOL/L Glucose Serum 85 71-110 MG/DL Testing p erformed at [facility], [address] [place] [address] [place] [address]. CLIA ID#: [id number] BUN 10 7-21 MG/DL Creat .62 .51-1.17 MG/DL C-iixgyx-s-benzoquinon e imine (NAPQI) is a metabolite of acetaminophen, [...] potential for falsely depressed results. GFR 128.1 NA Calculation pe rformed from GFR calculator provided by the National [...] Osmo Serum,Calculated 280 280-300 MOSM/KG Hemoglobin A1c 02355 Reviewed date:07/15/2024 03:19:45 PM Interpretation: Performing Lab: Notes/Report: Diagnosis Description: Encounter for supervision of normal , unspecified, first trimester Hgb A1c 4.8 3.8-6.4 % Interpretation Of Hgb A1c: 4.5-6.2 % nondiabetics. >7.0 % diabetics. EAG 91 NA Estimated Aver age Glucose(EAG). [place] [address] Reviewed date:07/15/2024 03:21:01 PM Interpretation: Performing Lab: Notes/Report: Diagnosis Description: Encounter for supervision of normal , unspecified, first trimester Hepatitis C AB Non-Reactive NA SYPHILIS TEST, QUAL (RPR) 86 592 Reviewed date:07/15/2024 03:19:58 PM Interpretation: Performing Lab: Notes/Report: Diagnosis Description: Encounter for supervision of normal , unspecified, first trimester Syphilis Screen Non-Reactive NA Testing performed via [email or web address] IM analyzer. This assay is a Chemiluminescent Microparticle Immunoassay for the detection of Treponemal antibodies. Reactive samples will be confirmed via RPR w/Reflex to Titer in accordance with CDC's recommended reverse sequence screening algorithm. Hepatitis Bs Antigen 08547 Reviewed date:07/15/2024 03:19:38 PM Interpretation: Performing Lab: Notes/Report: Diagnosis Description: Encounter for supervision of normal , unspecified, first trimester Hepatitis Bs AG Non-Reactive NA CBC w\o Diff 97887 Reviewed date:07/15/2024 03:20:46 PM Interpretation: Performing Lab: Notes/Report: Diagnosis Description: Encounter for supervision of normal , unspecified, first trimester WBC 11.9 4.5-11.0 X10'3 HI RBC 4.69 4.00-5.20 X10'6 Hgb 13.7 12.0-16.0 G/DL Hct 40.6 36.0-46.0 % MCV 86.6 80.0-100.0 FL MCH 29.2 27.0-31.0 PG MCHC 33.7 31.0-37.0 G/DL Platelet 352 150-400 X10'3 RDW-SD 40.2 35.0-49.0 FL RDW-CV 12.6 12.2-15.6 % MPV 10.7 9.2-12.0 FL Varicella Zoster IgG 59745 Reviewed date:07/15/2024 03:19:48 PM Interpretation: Performing Lab: Notes/Report: Diagnosis Description: Encounter for supervision of normal , unspecified, first trimester Varicella Zoster IgG 1.0 NA 0.9-1.1 Equivocal <= 0.9 Negative >= 1.1 Positive The best evidence of current infection is a significant change on two appropriately timed specimen,where both tests are done in the same laboratory at the same time. Rubella IgG 74965 Reviewed date:07/15/2024 03:20:58 PM Interpretation: Performing Lab: Notes/Report: Diagnosis Description: Encounter for supervision of normal , unspecified, first trimester Rubella IgG Reactive NA Reactive: Samples with a value of ? 10.0 IU/mL are considered positive for IgG antibodies to rubella virus. Nonreactive: Samples with a value of < 5.0 IU/mL are considered negative for IgG Equivocal: Samples with a value of ? 5.0 IU/mL and < 10.0 IU/mL are considered equivocal. Obtain a new specimen and test using the [employer] IM Rubella assay. antibodies to Rubella virus. Drug Screen Multi Panel 8030 5 Reviewed date:07/15/2024 03:20:04 PM Interpretation: Performing Lab: Notes/Report: Diagnosis Description: Encounter for supervision of normal , unspecified, first trimester Marijuana-THC Negative Specimen Type: Urine Cutoff value: 50 ng/mL Speciman analysis was performed without chain of [...] instances exsists for all drug screening methods. Cocaine-DARCIE Negative Specimen Type: Urine Specimen analysis was performed without chain of [...] instances exsists for all drug screening methods. Cutoff value: 300 ng/mL Opiates-MOP Negative Cutoff value: 2000 ng/mL Specimen Type: Urine Speciman analysis was performed without chain of [...] instances exsists for all drug screening methods. Amphetamine-AMP Negative Specimen Type: Urine Speciman analysis was performed without chain of [...] instances exsists for all drug screening methods. Cutoff value: 1000 ng/mL Methamphetamines-MET Negative Speciman [...] instances exsists for all drug screening methods. Cutoff value: 1000 ng/mL Specimen Type: Urine Phencyclidine-PCP Negative Specimen Type: Urine Speciman analysis was performed without chain of [...] instances exsists for all drug screening methods. Cutoff value: 25 ng/mL Ecstasy-MDMA Negative Speciman [...] instances exsists for all drug screening methods. Cutoff value: 500 ng/mL Specimen Type: Urine Barbiturates-BAR Negative Specimen Type: Urine Speciman analysis was performed without chain of [...] instances exsists for all drug screening methods. Cutoff value: 300 ng/mL Benzodiazepines-BZO Negative Specimen Type: Urine Speciman analysis was performed without chain of [...] instances exsists for all drug screening methods. Cutoff value: 300 ng/mL Methadone-MTD Negative Speciman [...] instances exsists for all drug screening methods. Cutoff value: 300 ng/mL Specimen Type: Urine Oxycodone-OXY Negative Cutoff value: 100 ng/mL Specimen Type: Urine Speciman analysis was performed without chain of [...] instances exsists for all drug screening methods. Buprenorphine-BUP Negative Specimen Type: Urine Analysis was performed without chain of custody [...] instances exsists for all drug screening methods. Cutoff value: 10 ng/mL CT/ NG PCR 62847, 44992 Reviewed date:07/15/2024 03:20:07 PM Interpretation: Performing Lab: Notes/Report: Diagnosis Description: Encounter for supervision of normal , unspecified, first trimester CT PCR NOT DETECTED NG PCR NOT DETECTED HIV 1/2 Ag/Ab Screen--78954, 83541 Reviewed date:07/15/2024 03:19:41 PM Interpretation: Performing Lab: Notes/Report: Diagnosis Description: Encounter for supervision of normal , unspecified, first trimester HIV 1/2 Ag/Ab Combo Non-Reactive NA Scr eening test only. Reactive samples will be sent out for confirmation. UA Without Micro-Auto, [place] - [address] Reviewed date:08/21/2024 11:16:17 AM Interpretation: Performing Lab: Notes/Report: Color dark yellow Clarity cloudy Glucose - Bili - Ketones - Sp [place] 1.020 Blood - pH 6.5 Protein +- Urobili - Nitrites - Leukocytes 1+ US OB Complete-20780 Reviewed date:09/23/2024 02:40:26 PM Interpretation: Performing Lab: Notes/Report: See Below For Report US OB Complete Read See Below For Report Culture Urine Reflex--[id number] Reviewed date:12/13/2024 05:02:06 PM Interpretation: Performing Lab: Notes/Report: Culture Urine Reflex MILAN Bai Culture Urine Reflex t: Culture Urine Reflex Culture Urine Reflex Access [id number] Culture Urine Reflex n: Culture Urine Reflex Microbiology Culture Urine Reflex PROCEDURE: Culture Urine Reflex [] Culture Urine Reflex SOURCE: U CC BODY SITE: Culture Urine Reflex COLLECTED DATE/TIME: 12/09/2024 10:36 CDT RECEIVED DATE/TIME: 12/09/2024 11:01 CDT Culture Urine Reflex START DATE/TIME: 12/09/2024 11:01 CDT FREE TEXT SOURCE: Culture Urine Reflex FINAL REPORT Culture Urine Reflex Final Report [] Culture Urine Reflex Verified Date/Time: 12/11/2024 06:21 CDT Culture Urine Reflex <10,000 cfu/ml Mixed Superficial Therese WBC Auto Diff--10949 Reviewed date:01/02/2025 12:28:16 PM Interpretation: Performing Lab: Notes/Report: Added by Discern Rules Neutro Auto% 66.6 40.0-70.0 % Lymph Auto% 17.3 22.0-44.0 % LOW [place] Auto% 12.0 3.0-7.0 % HI Eos Auto% 2.3 2.0-4.0 % Baso Auto% 0.8 0.0-1.0 % NRBC% .00 .00-.20 /100 intact WBC's Neutro Abs 5.28 .80-7.70 Absolute Neutrophil Count 5280 NA Lymph Abs 1.37 .10-4.10 Charles [place] Abs .95 .20-1.00 Eos Abs .18 .00-.40 Baso Abs .06 .00-.20 NRBC# .00 .00-.20 X10'3 Imm Gran Abs .08 .00-.10 Imm Gran% 1.0 .0-.4 % HI CBC Reflex [place] Diff 828[address], 8 5007 Reviewed date:01/02/2025 12:28:16 PM Interpretation: Performing Lab: Notes/Report: WBC 7.9 4.5-11.0 X10'3 RBC 3.86 4.00-5.20 X10'6 LOW Hgb 11.0 12.0-16.0 G/DL LOW Hct 32.8 36.0-46.0 % LOW MCV 85.0 80.0-100.0 FL MCH 28.5 27.0-31.0 PG MCHC 33.5 31.0-37.0 G/DL Platelet 261 150-400 X10'3 RDW-SD 39.1 35.0-49.0 FL RDW-CV 12.7 12.2-15.6 % MPV 10.5 9.2-12.0 FL Review Auto Diff Conf US OB Limited-[id number] Reviewed date:12/23/2024 12:03:29 PM Interpretation: Performing Lab: Notes/Report: See Below For Report US OB Limited Read See Below For Report UA Microscopic--23396 Reviewed date:12/09/2024 10:56:56 AM Interpretation: Performing Lab: Notes/Report: Micro UA ordered by [employer] Expert Rules system. RBC U 2 NA WBC U 12 0-5 /HPF HI Bacteria None Seen Hyaline Casts 4 NA SQ EPI 6 NA Leukorrhea - 89231, 52637, 8 7660, 90057, 78848 Reviewed date:11/12/2024 05:47:56 PM Interpretation: Performing Lab: Notes/Report: Chlamydia Sent to Ref Lab,result in clinical notes Gonorrhea Sent to Ref Lab,result in clinical notes Trichomonas Sent to Ref Lab Miscellaneous Test Reviewed date:11/12/2024 05:47:56 PM Interpretation: Performing Lab: Notes/Report: Misc Sent to Ref Lab Name of Misc Test Mycoplasma genitalium, Mycoplasma hominis, Ureaplasma species NA BB ABORH-91651,88558 Reviewed date:07/15/2024 03:21:17 PM Interpretation: Performing Lab: Notes/Report: HOMERO ABORh Interp A POS Unknown Hepatic Function Panel 76139 Reviewed date:07/15/2024 03:21:06 PM Interpretation: Performing Lab: Notes/Report: Diagnosis Description: Encounter for supervision of normal , unspecified, first trimester Total Protein 6.7 5.8-8.0 G/DL Albumin 4.1 3.2-4.8 G/DL Bili Total .2 .3-1.2 MG/DL LOW Use of this assay is not recommended for patients undergoing treatment with eltrombopag due to the potential for falsely elevated results. Bili Direct <.10 .05-.40 MG/DL Alk Phos 100 46-116 AST/SGOT 14 15-37 UNIT/L LOW ALT/SGPT 17 12-78 UNIT/L UA Without Micro-Auto, [place] - [address] Reviewed date:11/12/2024 10:10:36 AM Interpretation: Performing Lab: Notes/Report: Color yellow Clarity cloudy Glucose - Bili - Ketones - Sp [place] 1.015 Blood - pH 7.0 Protein +- Urobili 0.2 Nitrites - Leukocytes +- Ct--NO CPT Reviewed date:07/14/2024 05:28:27 PM Interpretation: Performing Lab: Notes/Report: Ct Sent to Ref Lab [facility] Specimen Reviewed date:01/05/2025 02:15:12 PM Interpretation: Performing Lab: Notes/Report: Order placed by Discern for documentation of an indication for pathology of the placenta. Pathology Specimen Sent to Pathologist Comprehensive Metabolic Pane l (CMP) 59734 Reviewed date:01/05/2025 02:14:42 PM Interpretation: Performing Lab: Notes/Report: Glucose Serum 81 71-110 MG/DL Testing p erformed at [facility], [address] [place] [address] [place] [address]. CLIA ID#: [id number] BUN 10 7-21 MG/DL Creat .71 .51-1.17 MG/DL B-ujjonq-d-benzoquinon e imine (NAPQI) is a metabolite of acetaminophen, [...] potential for falsely depressed results. GFR 122.0 NA Calculation pe rformed from GFR calculator provided by the National [...] Gap 13 5-15 Alk Phos 143 46-116 HI Bili Total .2 .3-1.2 MG/DL LOW Use of this assay is not recommended for patients undergoing treatment with eltrombopag due to the potential for falsely elevated results. AST/SGOT 89 15-37 UNIT/L HI ALT/SGPT 122 12-78 UNIT/L HI Osmo Serum,Calculated 288 280-300 MOSM/[place] [address] Reviewed date:01/05/2025 12:37:28 AM Interpretation: Performing Lab: Notes/Report: Hepatitis A AB Total Positive Negative NA Erp Developer: Pradeep Marquez MD, PhD [address] Hepatitis A infection or antibody response to HAV vaccination. The positive anti-HAV is consistent [place] [address] Performed By: [facility] False positive anti-HAV can occur. CLIA Number: [id number] Magnesium (B) 83380 Reviewed date:01/02/2025 10:01:07 PM Interpretation: Performing Lab: Notes/Report: 01/02/2025 17:06:[address] missx2 lv, waititng for someone else to come in to try. Magnesium 4.2 1.8-2.4 MG/DL HI Comprehensive Metabolic Pane l (CMP) 69787 Reviewed date:01/02/2025 10:01:07 PM Interpretation: Performing Lab: Notes/Report: Glucose Serum 79 71-110 MG/DL Testing p erformed at [facility], [address] [place] [address] [place] [address]. CLIA ID#: [id number] BUN 6 7-21 MG/DL LOW Creat .65 .51-1.17 MG/DL Use of this assay is not recommended for patients undergoing treatment with phenindione, due to the potential for falsely depressed results. C-ddzdgm-u-benzoquinon e imine (NAPQI) is a metabolite of acetaminophen, NAPQI concentrations of apparoximately 10 mg/L correlation to toxic levels of acetaminophen demonstrates a greater than or equil to 10% change in results. NAPQI concentrations greater than this may lead to falsely depressed results for patient samples. GFR 126.6 NA Calculation pe rformed from GFR calculator provided by the National [employer]. Glomerular Filtration rate(GRF) is the best overall index of kidney function. Normal GFR varies according to age,sex, body size, and declines with age. The National Kidney Foundation recommends using the CKD-EPI Creatinine Equation(2020) to estimate GFR. BUN/Creat Ratio 9.2 12.0-20.0 % LOW Total Protein 6.0 5.8-8.0 G/DL Albumin 3.7 3.2-4.8 G/DL Globulin 2.3 2.3-3.5 G/DL Alb/Glob 1.6 0.8-2.2 Calcium 8.0 8.7-10.4 MG/DL LOW Sodium 135 136-145 MMOL/L LOW Potassium 4.0 3.5-5.1 MMOL/L Chloride 105 98-107 MMOL/L CO2 22.7 20.0-31.0 MMOL/L Anion Gap 11 5-15 Alk Phos 157 46-116 HI Bili Total .5 .3-1.2 MG/DL Use of this assay is not recommended for patients undergoing treatment with eltrombopag due to the potential for falsely elevated results. AST/SGOT 70 15-37 UNIT/L HI ALT/SGPT 81 12-78 UNIT/L HI Osmo Serum,Calculated 276 280-300 MOSM/KG LOW UA Reflex Micro, Reflex Cult [id number], 12425, 96691 Reviewed date:01/02/2025 10:01:07 PM Interpretation: Performing Lab: Notes/Report: Color UA Dark Yellow NA Clarity UA Cloudy NA Specific gravity UA 1.036 1.005-1.030 HI Urine pH 5.5 5.0-8.0 NA Urine Glucose Negative NA Urine Bilirubin 1+ NA Urine Ketone 1+ NA Urine Blood 3+ NA Urine Protein 1+ NA Urobilinogen 1.0 0.1-1.0 NA Urine Nitrite Negative NA Urine Leukocyte 1+ NA Normal UA No Urine Culture Yes CBC w\o Diff [id number] Reviewed date:01/02/2025 10:01:07 PM Interpretation: Performing Lab: Notes/Report: WBC 10.3 4.5-11.0 X10'3 RBC 4.15 4.00-5.20 X10'6 Hgb 11.6 12.0-16.0 G/DL LOW Hct 35.3 36.0-46.0 % LOW MCV 85.1 80.0-100.0 FL MCH 28.0 27.0-31.0 PG MCHC 32.9 31.0-37.0 G/DL Platelet 230 150-400 X10'3 RDW-SD 39.6 35.0-49.0 FL RDW-CV 12.9 12.2-15.6 % MPV 10.6 9.2-12.0 FL Magnesium (B) 42714 Reviewed date:01/02/2025 12:28:16 PM Interpretation: Performing Lab: Notes/Report: Magnesium 1.8 1.8-2.4 MG/DL Comprehensive Metabolic Pane l (CMP) 76629 Reviewed date:01/02/2025 12:28:16 PM Interpretation: Performing Lab: Notes/Report: Glucose Serum 97 71-110 MG/DL Testing p erformed at [facility], [address] [place] [address] [place] [address]. CLIA ID#: [id number] BUN 6 7-21 MG/DL LOW Creat .54 .51-1.17 MG/DL Use of this assay is not recommended for patients undergoing treatment with phenindione, due to the potential for falsely depressed results. D-wgjqkd-n-benzoquinon e imine (NAPQI) is a metabolite of acetaminophen, NAPQI concentrations of apparoximately 10 mg/L correlation to toxic levels of acetaminophen demonstrates a greater than or equil to 10% change in results. NAPQI concentrations greater than this may lead to falsely depressed results for patient samples. GFR 132.3 NA Calculation pe rformed from GFR calculator provided by the National [employer]. Glomerular Filtration rate(GRF) is the best overall index of kidney function. Normal GFR varies according to age,sex, body size, and declines with age. The National Kidney Foundation recommends using the CKD-EPI Creatinine Equation(2020) to estimate GFR. BUN/Creat Ratio 11.1 12.0-20.0 % LOW Total Protein 5.5 5.8-8.0 G/DL LOW Albumin 3.4 3.2-4.8 G/DL Globulin 2.1 2.3-3.5 G/DL LOW Alb/Glob 1.6 0.8-2.2 Calcium 8.3 8.7-10.4 MG/DL LOW Sodium 137 136-145 MMOL/L Potassium 3.9 3.5-5.1 MMOL/L Chloride 109 98-107 MMOL/L HI CO2 20.1 20.0-31.0 MMOL/L Anion Gap 12 5-15 Alk Phos 143 46-116 HI Bili Total .4 .3-1.2 MG/DL Use of this assay is not recommended for patients undergoing treatment with eltrombopag due to the potential for falsely elevated results. AST/SGOT 79 15-37 UNIT/L HI ALT/SGPT 80 12-78 UNIT/L HI Osmo Serum,Calculated 281 280-300 MOSM/KG Hepatitis A IgM [address] Reviewed date:01/02/2025 12:28:16 PM Interpretation: Performing Lab: Notes/Report: Hep A IgM Non-Reactive NA Drug Screen Multi Panel 8030 5 Reviewed [...] Urine Cutoff value: 300 ng/mL Opiates-MOP Negative Cutoff value: 2000 ng/mL Speciman analysis was performed without chain of [...] all drug screening methods. Specimen Type: Urine Amphetamine-AMP Negative Specimen Type: Urine Cutoff value: 1000 ng/mL Speciman analysis was performed without chain of [...] instances exsists for all drug screening methods. Methamphetamines-MET Negative Speciman analysis was performed without [...] Urine Cutoff value: 25 ng/mL Ecstasy-MDMA Negative Cutoff value: 500 ng/mL Speciman analysis was performed without chain of [...] all drug screening methods. Specimen Type: Urine Barbiturates-BAR Negative Cutoff value: 300 ng/mL Speciman analysis was performed without chain of [...] all drug screening methods. Specimen Type: Urine Benzodiazepines-BZO Negative Specimen Type: Urine Cutoff value: 300 ng/mL Speciman analysis was performed without chain of [...] instances exsists for all drug screening methods. Methadone-MTD Negative Cutoff value: 300 ng/mL Speciman analysis was performed without chain of [...] all drug screening methods. Specimen Type: Urine Oxycodone-OXY Negative Specimen Type: Urine Cutoff value: 100 ng/mL Speciman analysis was performed without chain of [...] instances exsists for all drug screening methods. Buprenorphine-BUP Negative Analysis was performed without chain [...] Specimen Type: Urine Cutoff value: 10 ng/mL UA Reflex Micro, Reflex Cult 94727, 17890, 05529 Reviewed date:12/09/2024 10:56:56 AM Interpretation: Performing Lab: Notes/Report: Color UA Yellow NA Clarity UA Clear NA Specific gravity UA 1.021 1.005-1.030 Urine pH 6.5 5.0-8.0 NA Urine Glucose Negative NA Urine Bilirubin Negative NA Urine Ketone Trace NA Urine Blood Negative NA Urine Protein 1+ NA Urobilinogen 1.0 0.1-1.0 NA Urine Nitrite Negative NA Urine Leukocyte 1+ NA Normal UA No Urine Culture Yes Culture Urine [id number] Reviewed date:12/07/2024 10:12:01 PM Interpretation: Performing Lab: Notes/Report: Culture Urine MILAN Bai Culture Urine t: Culture Urine Culture Urine Accessio [id number] Culture Urine n: Culture Urine Microbiology Culture [...] Culture Urine O1: Culture Urine (Culture Urine 13483) Culture Urine Diagnosis Description: Encounter for supervision of normal , unspecified, third Culture Urine trimester Culture Urine Diagnosis Description: Frequency of micturition UA Without Micro-Auto, [place] - [address] Reviewed date:12/04/2024 11:22:58 AM Interpretation: Performing Lab: Notes/Report: Color yellow Clarity cloudy Glucose - Bili - Ketones - Sp [place] 1.015 Blood - pH 6.0 Protein +- Urobili 0.2 Nitrites - Leukocytes 2+ Comprehensive Metabolic Pane l (CMP) 95467 Reviewed date:01/05/2025 12:37:28 AM Interpretation: Performing Lab: Notes/Report: Glucose Serum 76 71-110 MG/DL Testing p erformed at [facility], [address] [place] [address] [place] [address]. CLIA ID#: [id number] BUN 7 7-21 MG/DL Creat .62 .51-1.17 MG/DL T-vqdhza-r-benzoquinon e imine (NAPQI) is a metabolite of acetaminophen, [...] potential for falsely depressed results. GFR 127.8 NA Calculation pe rformed from GFR calculator provided by the National [employer]. Glomerular Filtration rate(GRF) is the best overall index of kidney function. Normal GFR varies according to age,sex, body size, and declines with age. The National Kidney Foundation recommends using the CKD-EPI Creatinine Equation(2020) to estimate GFR. BUN/Creat Ratio 11.3 12.0-20.0 % LOW Total Protein 5.4 5.8-8.0 G/DL LOW Albumin 3.2 3.2-4.8 G/DL Globulin 2.2 2.3-3.5 G/DL LOW Alb/Glob 1.5 0.8-2.2 Calcium 7.6 8.7-10.4 MG/DL LOW Sodium 139 136-145 MMOL/L Potassium 4.5 3.5-5.1 MMOL/L Chloride 109 98-107 MMOL/L HI CO2 24.2 20.0-31.0 MMOL/L Anion Gap 10 5-15 Alk Phos 141 46-116 HI Bili Total .2 .3-1.2 MG/DL LOW Use of this assay is not recommended for patients undergoing treatment with eltrombopag due to the potential for falsely elevated results. AST/SGOT 49 15-37 UNIT/L HI ALT/SGPT 74 12-78 UNIT/L Osmo Serum,Calculated 285 280-300 MOSM/KG Magnesium (B) 99107 Reviewed date:01/05/2025 12:37:28 AM Interpretation: Performing Lab: Notes/Report: Magnesium 2.9 1.8-2.4 MG/DL HI Comprehensive Metabolic Pane l (CMP) 44615 Reviewed date:01/05/2025 02:28:14 PM Interpretation: Performing Lab: Notes/Report: Glucose Serum 96 71-110 MG/DL Testing p erformed at [facility], [address] [place] [address] [place] [address]. CLIA ID#: [id number] BUN 11 7-21 MG/DL Creat .66 .51-1.17 MG/DL Use of this assay is not recommended for patients undergoing treatment with phenindione, due to the potential for falsely depressed results. M-csqevv-j-benzoquinon e imine (NAPQI) is a metabolite of acetaminophen, NAPQI concentrations of apparoximately 10 mg/L correlation to toxic levels of acetaminophen demonstrates a greater than or equil to 10% change in results. NAPQI concentrations greater than this may lead to falsely depressed results for patient samples. GFR 126.2 NA Calculation pe rformed from GFR calculator provided by the National [...] 28.5 20.0-31.0 MMOL/L Anion Gap 16 5-15 HI Alk Phos 162 46-116 HI Bili Total .3 .3-1.2 MG/DL Use of this assay is not recommended for patients undergoing treatment with eltrombopag due to the potential for falsely elevated results. 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 Negative x3, lives with husb and and daughter, safe, 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, 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 Negative x3, lives with husb and and daughter, safe, 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, 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 Negative x3, lives with husb and and daughter, safe, 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, 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 Negative x3, lives with husb and and kids, safe, 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, 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 Negative x3, lives with husb and and daughter, safe, 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, 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 Negative x3, lives with husb and and kids, safe, 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, 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 Problems Problem Type SNOMED Code ICD Code Onset Dates Problem Status W/U Status Risk Notes Problem Obesity in mother complicating childbirth (disorder) (936225773157382 00) Obesity complicating childbirth (O99.214) Active confirmed Problem Vitamin D deficiency (40874346) Vitamin D deficiency (E55.9) Active confirmed Problem Migraine (44805445) Migraine (G43.909) Active confirmed Problem Body mass index 40+ - severely obese (426508324) BMI 45.0-49.9, adult (Z68.42) Active confirmed Problem Obesity affecting in third trimester, unspecified obesity type (O99.213) Active confirmed Vital Signs Heart Rate 66 /min 03/25/2025 Respiratory Rate 18 /min 03/25/2025 Height-cm 175.26 cm 03/25/2025 Oximetry 99 % 03/25/2025 Blood pressure diastolic 70 mm Hg 03/25/2025 Weight-kg 142.2 kg 03/25/2025 Height 69 in 03/25/2025 Blood pressure systolic 114 mm Hg 03/25/2025 Weight 313.49 lbs 03/25/2025 BMI 46.29 kg/m2 03/25/2025 Encounters Encounter Location Date Provider Diagnosis [address] [place] [address] 12/04/2024 Misty Ruvalcaba High risk , antepartum O09.90 ; Obesity affecting in third trimester, unspecified obesity type O99.213 ; BMI 45.0-49.9, adult Z68.42 ; Third trimester Z34.93 and Urinary frequency R35.[address] [place] [address] 11/12/2024 Misty Ruvalcaba High risk , antepartum O09.90 ; Obesity affecting in third trimester, unspecified obesity type O99.213 ; BMI 45.0-49.9, adult Z68.42 ; Third trimester Z34.93 and Vaginal discharge N89.[address] [place] [address] 10/22/2024 Misty Ruvalcaba High risk , antepartum O09.90 ; Obesity affecting in second trimester, unspecified obesity type O99.212 ; BMI 45.0-49.9, adult Z68.42 ; Second trimester Z34.92 and Palpitations R00.[address] [place] [address] 09/24/2024 Misty Ruvalcaba Encounter for supervision of normal in second trimester, unspecified Z34.[address] [place] [address] 08/21/2024 Misty Ruvalcaba Encounter for supervision of normal in second trimester, unspecified Z34.[address] [place] [address] 01/20/2025 Misty Ruvalcaba state Z39.2 ; Encounter for consultation for female sterilization Z30.09 and Acute vaginitis N76.[address] [place] [address] 12/24/2024 Misty Ruvalcaba High risk , antepartum O09.90 ; Obesity affecting in third trimester, unspecified obesity type O99.213 ; BMI 45.0-49.9, adult Z68.42 ; Vitamin D deficiency E55.9 and Third trimester Z34.[address] [place] [address] 12/24/2024 Misty Ruvalcaba Obesity affecting in third trimester, unspecified obesity type O99.213 ; BMI 45.0-49.9, adult Z68.42 and 34 weeks gestation of Z3A.[address] [place] [address] 12/17/2024 Misty Ruvalcaba Obesity affecting in third trimester, unspecified obesity type O99.213 ; BMI 45.0-49.9, adult Z68.42 and 33 weeks gestation of Z3A.[address] [place] [address] 03/25/2025 Misty Ruvalcaba Postoperative state Z98.890 and BMI 45.0-49.9, adult Z68.[address] [place] [address] 09/22/2024 Misty Ruvalcaba 21 weeks gestation o f Z3A.21 and Encounter for other specified screening Z36.[address] [place] [address] 12/17/2024 Misty Ruvalcaba High risk , antepartum O09.90 ; Obesity affecting in third trimester, unspecified obesity type O99.213 ; BMI 45.0-49.9, adult Z68.42 and Third trimester Z34.[address] [place] [address] 07/14/2024 Misty Ruvalcaba Encounter for supervision of normal in first trimester, unspecified Z34.91 and Prediabetes R73.[address] [place] [address] 07/11/2024 Misty Ruvalcaba 10 weeks gestation o f Z3A.[address] [place] [address] 12/22/2024 Misty Ruvalcaba 34 weeks gestation o f Z3A.34 ; Encounter for other specified screening Z36.89 and macrosomia in third trimester, single or unspecified fetus O36.63X0 [address] [place] [address] 02/27/2025 Misty Ruvalcaba [address] [place] [address] 01/23/2025 Misty Ruvalcaba [address] [place] [address] 01/05/2025 Misty Ruvalcaba Elevated liver enzymes R74.[address] [place] [address] 01/01/2025 Misty Ruvalcaba [place] [address] [place] [address] 12/10/2024 Misty Ruvalcaba [place] [address] [place] [address] 10/24/2024 Misty Ruvalcaba [place] [address] [place] [address] 10/07/2024 Misty Ruvalcaba [place] [address] [place] [address] 09/24/2024 Mistyblanquita Ruvalcaba [place] [address] [place] [address] 2024 Misty Ruvalcaba [place] [address] [place] [address] 09/04/[address] [place] [address] 11/21/2024 Misty Ruvalcaba Assessments Encounter Date Diagnosis (ICD Code) Assessment Notes Treatment Notes Treatment Clinical Notes Section Notes 09/22/2024 21 weeks gestation of (ICD-10 - [...] blood if needed. SCHEDULE for dx lsc/BS/AOIP 03/25/2025 BMI 45.0-49.9, adult (ICD-10 - Z68.42) 03/25/2025 Postoperative state (ICD-10 - Z98.890) exam wnl, mood good, PAP UTD, BTL for BCM RTC 10/2025 for pap 08/21/2024 Encounter for supervision of normal in second trimester, unspecified (ICD-10 - Z34.92) 07/14/2024 Prediabetes (ICD-10 - R73.03) send a1c, FLT for h/o SPE 07/14/2024 Encounter for supervision of normal in first trimester, unspecified (ICD-10 - Z34.91) NOB: Send NOB labs, pap requested, Needs 18-22wk sono discussed PNS, desires screening discussed weight gain/eating healthy continue PNV, increase fluids 07/11/2024 10 weeks gestation of (ICD-10 - Z3A.10) 01/20/2025 Acute vaginitis (ICD-10 - N76.0) ureaplasma [...] Z34.93) 12/04/2024 Third trimester (ICD-10 - Z34.93) 12/24/2024 Vitamin D deficiency (ICD-10 - E55.9) 12/17/2024 Third trimester (ICD-10 - Z34.93) Weeks 34 to 36 of Your : Care Instructions material was published 12/24/2024 Third trimester (ICD-10 - Z34.93) Week [...] Panel (CMP) 8005 3 01/05/2025 Magnesium (B) 52841 01/05/2025 Phosphorus (B) 80580 01/05/2025 SYPHILIS TEST, QUAL (RPR) 54278 11/13/19 25 Vitamin D Total (B) 77391 12/24/2024 CBC w\o Diff 68143 11/12/2024 HIV 1/2 Ag/Ab Screen--69521,[id number] 2024 Next Appt Details Provider Name:Misty snow, 11/16/2025 04:15:00 PM, [address] [place] [address] , [address], [place], [address], Insurance Providers Payer Name Payer Address Payer Phone Subscriber Number Group Number Insured Name Patient Relationship to Insured Coverage Start Date Coverage End Date [place] [address] [place] [phone] [id number] MILAN Cazares Self - patient is the insured [facility] Medicaid Replacement [address] [place] [phone] [id number] MILAN Cazares Self - patient is the insured Medical (General) History Surgical History Surgery Date(Month/Year) oral left ankle/leg dx lap/BS 02/27/2025 Hospitalization History Reason Date(Month/Year) [facility] - childbirth 5.16.25 [facility] - Chest pain during ; ech o completed 5.7.25
[2025-07-02 21:08] LABS: Glucose Urine UA Negative (Normal); Nitrate Urine Negative (Negative); Specific Gravity, Urine 1.030 (1.005-1.030)
[2025-07-02 21:09] LABS: Hematocrit 41.5 % (36-47); Hemoglobin 13.90 g/dL (11.27-16.99); Mean Corpuscular HGB Conc 33.5 g/dL (30-55); Mean Corpuscular Hemoglobin 27.5 pg (27-33); Mean Corpuscular Volume 82.0 fl (85-98); Nucleated Red Blood Cells % 0 %; Platelet Count 410 10^3/cmm (157-399); Red Blood Count 5.06 10^6/uL (3.85-5.65); White Blood Count 16.91 10^3/uL (3.29-11.43)
[2025-07-02 21:11] LABS: Add Urine Microscopic? YES
[2025-07-02 21:37] LABS: Alanine Aminotransferase 41 U/L (0-33); Albumin Level 4.4 g/dL (3.5-5.2); Alkaline Phosphatase 114 U/L (35-105); Anion Gap 18.1 (5-19); Aspartate Amino Transferase 56 U/L (0-32); Blood Urea Nitrogen 15 mg/dL (6-20); Calcium 9.5 mg/dL (8.5-10.5); Carbon Dioxide 22 mmol/L (22-29); Chloride 101 mmol/L (98-107); Globulin 3.5 g/dL (1.3-4.6); Glucose 101 mg/dL (65-115); Lipase 26 U/L (13-60); Osmolality Calculated 285 mOsm/kg (285-295); Potassium 4.1 mmol/L (3.5-5.1); Sodium 137 mmol/L (136-145); Total Protein 7.9 g/dL (6.6-8.7)
[2025-07-02 21:38] LABS: UA Slide Review UA Slide Review Perf
[2025-07-02 21:45] LABS: Slide Review Slide Review Perform
[2025-07-02] MEDS: lidocaine 2% viscous 15 ML, aluminum-mag hydrox-simethicon 30 ML, sucralfate oral liq 1 GM PO (21:50)
[2025-07-02] MEDS: ondansetron hcl ODT 4 mg Tab PO (21:50)
--- NOTE | 2025-07-02 21:58 | ED_ITS ---
HPI - General Adult 2 General: Chief complaint: Abdominal Pain Stated complaint: abd pain and back pain Time Seen by Provider: 07/02/25 20:41 History of Present Illness: Patient is a 24-year-old female status postcholecystectomy in March presents with a chief complaint of burning epigastric pain for the past 3 to 4 days that have been worsened with eating. Burning pain starts approximately 1 hour after meal. She has not had any fever. She denies chest pain, shortness of breath, cough or hemoptysis. Patient states she has felt nauseated but has not vomited. No diarrhea, blood in stool, had a normal bowel movement approximately 1 hour prior to presentation. No dysuria, hematuria, possibility of , abnormal pelvic discharge, pain with intercourse. Patient does not take any PPI. She denies alcohol use or excessive NSAID use. Related Data Home Medications ?Medication ?Instructions ?Recorded ?Confirmed bismuth subsalicylate 262 mg/15 mL 524 mg PO Q1H PRN u pset stomach 02/21/25 02/21/25 oral suspension (Pepto-Bismol) calcium carbonate 500 mg PO TID 02/21/2502/21 famotidine 20 mg tablet (Pepcid) 20 mg PO BID 02/21/25 02/21/25 Previous Rx's ?Medication ?Instructions ?Recorded pantoprazole 40 mg tablet,delayed 40 mg PO BID 6 weeks #84 tabs 02/09/25 release (Protonix) promethazine 25 mg tablet 25 mg PO Q6H PRN nausea and 02/21/25 vomiting #20 tabs pantoprazole 40 mg tablet,delayed 40 mg PO DAILY #30 t abs 07/02/25 release (Protonix) Allergies Allergy/AdvReac Type Severity Reaction Status Date / Time No Known Allergies Allergy Verified 07/02/25 20:45 PFS ED 2 PFSH: Medical History (Updated 07/02/25 @ 22:05 by Jackie Gerber MD) Menorrhagia with regular cycle No pertinent past medical history neghx: htn,dm,heart,lung,liver,kidney,thyroid,dvt PCP: [facility] Surgical History Hx of fracture of leg (~10/2020) L leg and ankle Hx of wisdom tooth extraction (~10/2016) Family History Mother Thyroid disease Family/Other Breast cancer Paternal Great Aunt, Paternal Great Grandmother-- dx age unknown Grandfather Hypertension Maternal Stroke Paternal Grandmother Diabetes Maternal Denies family history of Colon cancer Ovarian cancer Heart disease Bleeding disorder Uterine cancer Social History Smoking and tobacco/nicotine status: never used tobacco/nicotine Additional social history: - Tobacco use: Never Alcohol use: Never Drug use: Never Physical Exam 2 Narrative: EXAM NARRATIVE: Vital signs were reviewed. Patient is alert and oriented. Patient is breathing comfortably, no increased WOB or accessory muscle use. SpO2 is above 95% on RA. Patient has clear lungs b/l, no rhonchi, wheezing or crackles. No hypotension or tachycardia. Abdomen is soft, nondistended. Mild epigastric tenderness. No pain w/palpation of the RUQ. Patient is moving all extremities, no deformity or gross injury. No lower extremity edema or asymmetry. Course 2 Vital Signs: Vital signs: Vital Signs Temperature 98.4 F 07/02/25 20:39 Pulse Rate 101 H 07/02/25 20:39 Respiratory Rate 20 H 07/02/25 20:39 Blood Pressure 137/83 07/02/25 20:39 Pulse Oximetry 99 07/02/25 20:39 Oxygen Delivery Me thod Room Air 07/02/25 20:39 MDM - General Adult Medical Decision Making 24-year-old female with a chief complaint of burning pain in the epigastrium after meals for the past 3 to 4 days. Differential diagnosis includes, but is not limited to, pancreatitis, gastritis, biliary pathology, gastroparesis, gastroenteritis, appendicitis, urinary tract infection, pyelonephritis, nephrolithiasis, SBO, diverticulitis, other. On initial exam, patient is hemodynamically stable and nontoxic appearing. Patient was evaluated with CBC, CMP, lipase, UA and screen. She was treated for pain w/Tylenol, zofran and GI cocktail. Lab work demonstrates elevated white blood cell count. Patient is not anemic. She does not have any actionable electrolyte abnormalities. Patient has normal kidney function. She has minimally elevated LFTs and normal lipase. I do not feel that mildy abnormal LFTs are clinically actionable at this time. Patient is not . UA is not consistent with infection or hematuria. Her presentation may be most consistent w/gastritis and peptic ulcer disease. Will start on PPI and refer for further outpatient w/u. Patient is agreeable with this plan. Patient was counseled on supportive care at home, given return precautions and discharged in stable condition with recommendation for outpatient follow-up with primary care nurse or doctor. Lab Data 07/02/25 21:03 07/02/25 21:03 Laboratory Results WBC 16.91 10^3/uL (3.29-11.43) H 07/02/25 21:03 RBC 5.06 10^6/uL (3.85-5.65) 07/02/25: Hgb 13.90 g/dL (11.27-16.99) 07/02/25 21: Hct 41.5 % (36-47) 07/02/25 21: MCV 82.0 fl (85-98) L 07/02/25: MCH 27.5 pg (27-33) 07/02/25 21: MCHC 33.5 g/dL (30-55) 07/02/25 21: RDW 13.6 % (12.1-15.1) 07/02/25 21: Plt Count 410 10^3/cmm (157-399) H 07/02/25 21:03 MPV 10.2 fL (7.4-10.4) 07/02/25 21: Neut % (Auto) 64.0 % 07/02/25 21: Lymph % (Auto) 27.1 % 07/02/25 21: [place] % (Auto) 6.9 % 07/02/25 21:03 Eos % (Auto) 1.2 % 07/02/25 21: Baso % (Auto) 0.5 % 07/02/25 21: Neut # (Auto) 10.83 10^3/uL (1.8-7.7) H 07/02/25 21:03 Lymph # (Auto) 4.6 10^3/uL (0.8-4.8) 07/02/25 21:03 [place] # (Auto) 1.2 10^3/uL (0.2-0.9) H 07/02/25 21:03 Eos # (Auto) 0.2 10^3/uL (0.0-0.8) 07/02/25 21:03 Baso # (Auto) 0.1 10^3/uL (0.0-0.1) 07/02/25 21:03 Nucleated RBC % (auto) 0 % 07/02/25 21:03 Nucleated RBCs # 0.0 /100WBC 07/02/25 21:03 Sodium 137 mmol/L (136-145) 07/02/25 21:03 Potassium 4.1 mmol/L (3.5-5.1) 07/02/25 21:03 Chloride 101 mmol/L (98-107) 07/02/25 21:03 Carbon Dioxide 22 mmol/L (22-29) 07/02/25 21:03 Anion Gap 18.1 (5-19) 07/02/25 21:03 BUN 15 mg/dL (6-20) 07/02/25 21:03 Creatinine 0.7 mg/dL (0.5-0.9) 07/02/25 21:03 GFR Calculation 103.7 mL/min (90-130) 07/02/25 21:03 Glucose 101 mg/dL (65-115) 07/02/25 21:03 Calculated Osmolality 285 mOsm/kg (285-295) 07/02/25 21:03 Calcium 9.5 mg/dL (8.5-10.5) 07/02/25 21:03 Total Bilirubin 0.6 mg/dL (0.15-1.2) 07/02/25 21:03 AST 56 U/L (0-32) H 07/02/25 21:03 ALT 41 U/L (0-33) H 07/02/25 21:03 Alkaline Phosphatase 114 U/L (35-105) H 07/02/25 21:03 Total Protein 7.9 g/dL (6.6-8.7) 07/02/25 21:03 Albumin 4.4 g/dL (3.5-5.2) 07/02/25 21:03 Globulin 3.5 g/dL (1.3-4.6) 07/02/25 21:03 Lipase 26 U/L (13-60) 07/02/25 21:03 Ser , Semi-Qnt < 1.00 mIU/mL 07/02/25 21:03 Urine Color Yellow (Yellow) 07/02/25 20:59 Urine Appearance Cloudy (CLEAR) A 07/02/25 20:59 Urine pH 5.5 (5-7) 07/02/25 20:59 Ur Specific [place] 1.030 (1.005-1.030) 07/02/25 20:59 Urine Protein Trace (Negative) A 07/02/25 20:59 Urine Glucose (UA) Negative (Normal) 07/02/25 20:59 Urine Ketones Trace (Negative) 07/02/25 20:59 Urine Blood Negative (Negative) 07/02/25 20:59 Urine Nitrate Negative (Negative) 07/02/25 20:59 Urine Bilirubin Negative (Negative) 07/02/25 20:59 Urine Urobilinogen 1.0 mg/dL (Negative) 07/02/25 20:59 Ur Leukocyte Esterase Negative (Negative) 07/02/25 20:59 Urine RBC 6-10 /hpf (0-2) 07/02/25 20:59 Urine WBC 6-10 /hpf (0-5) 07/02/25 20:59 Ur Squamous Epith Cells 6-10 /hpf (0-5) 07/02/25 20:59 Amorphous Sediment Not Reportable 07/02/25 20:59 Urine Bacteria None seen /hpf (NONE) 07/02/25 20:59 Hyaline Casts 3.30 /lpf 07/02/25 20:59 No radiology studies performed this visit Discharge Plan Discharge Patient Disposition: Home Clinical Impression: Gastritis Qualifiers: Gastritis type: unspecified gastritis Chronicity: acute Gastritis bleeding: w ithout bleeding Qualified Code(s): K29.00 - Acute gastritis without bleeding Condition: Stable Prescriptions: New pantoprazole [Protonix] 40 mg tablet,delayed release (DR/EC) 40 mg PO DAILY Qty: 30 0RF No Action pantoprazole [Protonix] 40 mg tablet,delayed release (DR/EC) 40 mg PO BID 42 Days Qty: 84 1RF famotidine [Pepcid] 20 mg Tablet 20 mg PO BID bismuth subsalicylate [Pepto-Bismol] 262 mg/15 mL Suspension 524 mg PO Q1H PRN (Reason: upset stomach) Rx Instructions: do not exceed 8 doses in a 24 hour period calcium carbonate [Tums 500] 500 mg calcium (1,250 mg) Tablet,Chewable 500 mg PO TID promethazine 25 mg tablet 25 mg PO Q6H PRN (Reason: nausea and vomiting) Qty: 20 0RF Discharge Orders: Discharge ED (Routine); Ordered 07/02/25 Ordered By: Jackie Gerber Patient Instructions: [place] Diet - Adult, Diet for Stomach Ulcers and Gastritis (ED), Abdominal Pain (ED), Opioid Safety, Pain Management, Patient Portal & Jen Instructions Activity Restrictions/Additional Instructions: You may take Tylenol for pain but avoid any NSAID such as Motrin, ibuprofen, naproxen or Aleve. Consider a bland diet and limit caffeine and alcohol intake. Start medication to decrease stomach acid production. Continue to monitor your condition closely at home. If your condition worsens or additional concerns arise, please return promptly to the emergency department. It is recommended that you follow-up with your primary care physician and talk to your primary care physician about helping you schedule upper endoscopy to see if you might be suffering from gastric/peptic ulcers. 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
== END 2025-07-02 22:20 | disposition home or self-care (01) ==
PROVIDERS: Emergency Provider Emergency Medicine
DX: K29.00 Acute gastritis without bleeding (principal)
CPT/HCPCS: 36415; 80053; 81001; 83690; 84702; 85025; 99283; J9999; Q0162

== ENCOUNTER 2025-07-07 01:01 | Observation (INO) | payer BC, OTHER, MEDICAID, SELFPAY ==
[2025-07-07] VITALS (9 sets, daily range): BP systolic 146–208; BP diastolic 82–97; PULSE 60–79; RESP 16–20; TEMP 36.4–36.8; O2SAT 97–99; BMI 44.3; BMI 45.4
[2025-07-07 02:08] LABS: Hematocrit 42.0 % (36-47); Hemoglobin 14.00 g/dL (11.27-16.99); Mean Corpuscular HGB Conc 33.3 g/dL (30-55); Mean Corpuscular Hemoglobin 27.6 pg (27-33); Mean Corpuscular Volume 82.8 fl (85-98); Nucleated Red Blood Cells % 0 %; Platelet Count 411 10^3/cmm (157-399); Red Blood Count 5.07 10^6/uL (3.85-5.65); White Blood Count 9.44 10^3/uL (3.29-11.43)
[2025-07-07 02:23] LABS: HCG, Serum Qual Negative (Negative)
[2025-07-07 02:34] LABS: Alanine Aminotransferase 599 U/L (0-33); Albumin Level 4.6 g/dL (3.5-5.2); Alkaline Phosphatase 253 U/L (35-105); Anion Gap 19.7 (5-19); Aspartate Amino Transferase 222 U/L (0-32); Blood Urea Nitrogen 8 mg/dL (6-20); Calcium 9.9 mg/dL (8.5-10.5); Carbon Dioxide 21 mmol/L (22-29); Chloride 103 mmol/L (98-107); Globulin 3.6 g/dL (1.3-4.6); Glucose 115 mg/dL (65-115); Osmolality Calculated 289 mOsm/kg (285-295); Potassium 3.7 mmol/L (3.5-5.1); Sodium 140 mmol/L (136-145); Total Protein 8.2 g/dL (6.6-8.7)
[2025-07-07 02:41] LABS: Lipase 922 U/L (13-60)
--- NOTE | 2025-07-07 04:21 | CTR_ITS ---
PROCEDURE INFORMATION: Exam: CT Abdomen And Pelvis With Contrast Exam date and time: 07/07/2025 7:17 AM Age: 24 years old Clinical indication: Pain; Other: Lipase and lft elev, sp choecystectomy; Additional info: Lipase and lft elev, sp cholecystectomy TECHNIQUE: Imaging protocol: Computed tomography of the abdomen and pelvis with contrast. Radiation optimization: All CT scans at this facility use at least one of these dose optimization techniques: automated exposure control; mA and/or kV adjustment per patient size (includes targeted exams where dose is matched to clinical indication); or iterative reconstruction. Contrast material: [id number]; Contrast volume: 100 ml; Contrast route: INTRAVENOUS (IV); COMPARISON: MR MRCP [id number] 02/21/2025 7:51 AM RADIATION DOSE METRICS: Total DLP (mGy-cm): 1537.3 FINDINGS: Lungs: Lung bases are clear as visualized. Liver: There is mild fatty infiltration of the liver. No focal liver parenchymal abnormalities are otherwise noted. Gallbladder and biliary ducts: There are surgical clips within the gallbladder fossa. The common bile duct is dilated measuring 14-15 mm in maximal dimension. There is mild intrahepatic biliary ductal dilatation. No definite ductal stone is appreciated. Findings may be related to prior cholecystectomy. If biliary obstruction is a clinical concern, recommend correlation with ERCP/MRCP. Pancreas: There is subtle edema involving the pancreatic parenchyma with very minimal adjacent fat stranding suggesting mild pancreatitis. Spleen: The spleen is slightly enlarged measuring 13.6 cm in maximal dimension. Adrenal glands: Normal. No mass. Kidneys and ureters: Normal. No hydronephrosis. Stomach and bowel: Unremarkable. No obstruction. No mucosal thickening. Appendix: No evidence of appendicitis. Intraperitoneal space: Unremarkable. No free air. No significant fluid collection. Vasculature: Unremarkable. No abdominal aortic aneurysm. Lymph nodes: Unremarkable. No enlarged lymph nodes. Urinary bladder: Unremarkable as visualized. Reproductive: Unremarkable as visualized. Bones/joints: Unremarkable. No acute fracture. Soft tissues: There is a small fat filled periumbilical hernia. CT/CT abdomen pelvis w con* [id number] IMPRESSION: 1. Postoperative changes status post prior cholecystectomy. There is intra and extrahepatic biliary ductal dilatation. Please see above comments. 2. Mild pancreatitis. 3. Please see above comments for additional details.
--- NOTE | 2025-07-07 04:59 | ED_ITS ---
HPI - Abdominal Pain 2 General: Chief Complaint: Abdominal Pain Stated Complaint: Back Pain Time Seen by Provider: 07/07/25 04:11 History of Present Illness: Patient is a 24-year-old female with past medical history of cholecystectomy and tubal ligation who presents with severe abdominal pain radiating to the back, ongoing for approximately one week and worsening over the past day. The pain is described as tight and constant, exacerbated by inspiration, and unrelieved by [id number] medications such as Tylenol, Pepto-Bismol, and Emelia-Norman. The patient reports difficulty finding a comfortable position and has experienced similar pain prior to a cholecystectomy performed in March. She denies improvement since onset and notes dark bowel movements but denies hematochezia, vomiting, dysuria, heavy alcohol use, or heavy ibuprofen use. She has not been able to eat due to the pain. She states she was told she had the beginnings of an ulcer on her visit here few days ago, had thought she was doing better and then abruptly worsened today. She denies any heavy alcohol or NSAID usage. Associated Symptoms: Reports chills, nausea and vomiting Related Data Home Medications ?Medication ?Instructions ?Recorded ?Confirmed bismuth subsalicylate 262 mg/15 mL 524 mg PO Q1H PRN u pset stomach 02/21/25 07/07/25 oral suspension (Pepto-Bismol) calcium carbonate 500 mg PO TID 02/21/2507/07 acetaminophen 325 mg tablet 650 mg PO QID PRN Fever Or Pain 07/07/25 07/07/25 (Tylenol) Previous Rx's ?Medication ?Instructions ?Recorded pantoprazole 40 mg tablet,delayed 40 mg PO DAILY #30 t abs 07/02/25 release (Protonix) Allergies Allergy/AdvReac Type Severity Reaction Status Date / Time No Known Allergies Allergy Verified 07/02/25 20:45 Review of Systems 2 General: Reports: 10 or more systems reviewed and unremarkable except in HPI and below Const: Reports: chills, change in appetite and fatigue GI: Reports: abdominal pain, nausea and vomiting PFSH ED 2 PFSH: Medical History (Updated 07/07/25 @ 18:33 by Tiago Montanez DO) Menorrhagia with regular cycle No pertinent past medical history neghx: htn,dm,heart,lung,liver,kidney,thyroid,dvt PCP: [facility] Surgical History Hx of fracture of leg (~10/2020) L leg and ankle Hx of wisdom tooth extraction (~10/2016) Family History Mother Thyroid disease Family/Other Breast cancer Paternal Great Aunt, Paternal Great Grandmother-- dx age unknown Grandfather Hypertension Maternal Stroke Paternal Grandmother Diabetes Maternal Denies family history of Colon cancer Ovarian cancer Heart disease Bleeding disorder Uterine cancer Social History Smoking and tobacco/nicotine status: never used tobacco/nicotine Additional social history: - Tobacco use: Never Alcohol use: Never Drug use: Never Physical Exam 2 Narrative: EXAM NARRATIVE: Mildly ill-appearing but nontoxic, slightly tachycardic, afebrile, normotensive abdomen protuberant, moderate diffuse upper abdominal tenderness, not peritonitic, Bell sign negative, bowel sounds decreased, no overlying skin changes, no CVA tenderness. Breathing comfortably on room air, saturating well. Mildly tachycardic, normal sinus rhythm, no leg swelling, 2+ pulses throughout, slightly delayed cap refill, dry mucous membranes. GCS 15. Course 2 Vital Signs: Vital signs: Vital Signs Temperature 98 F 07/07/25 15:24 Pulse Rate 65 07/07/25 15:24 Respiratory Rate 16 07/07/25 15:24 Blood Pressure 146/82 07/07/25 15:24 Pulse Oximetry 99 07/07/25 15:24 Oxygen Delivery Me thod Room Air 07/07/25 15:24 MDM - Abdominal Pain Medical Decision Making -ddx: PUD, pancreatitis, postcholecystectomy syndrome, hepatitis, dehydration, electrolyte abnormality, hollow viscus injury, intra-abdominal abscess, pyelonephritis - Patient with repeat visit for worsening of symptoms, was thought to have an ulcer, did not have a CT scan at that time. Will get initial labs, treat with labs and fluids and have a low threshold for CT scan if she does not improve for concerning laboratory findings. Stable at this time, does not appear septic and nontoxic and in setting of her GI symptoms will not start antibiotics at this time. - On laboratory studies, patient with lipase of over 900, seemingly normal a few days ago, she also had some small LFT & hepatic function of her liver elevation, her gallbladder was taken out but due to these abnormalities and possible concerns for persistent biliary or hepatic pathology, CT scan ordered, this did not return but knew she would be admitted when I was sleeping shift so CT was ordered, additional symptom medication as well and she was admitted to the hospitalist and initially stabilized condition for further management of her pancreatitis plus any other findings, stable at this time, boyfriend at bedside and updated with plan of care. Lab Data 07/07/25 10:15 07/07/25 10:15 Labs/Radiology: Radiology Impressions Abdomen/Pelvis CT 07/07/25 04:21 IMPRESSION: 1. Postoperative changes status post prior cholecystectomy. There is intra and extrahepatic biliary ductal dilatation. Please see above comments. 2. Mild pancreatitis. 3. Please see above comments for additional details. Abdomen Ultrasound 07/07/25 08:47 IMPRESSION: 1. Status post cholecystectomy. 2. Mildly dilated common bile duct and central intrahepatic ducts. Dilatation does not appear as significant as on the CT from 07/07/2025. 3. Pancreas is not identified due to bowel gas and body habitus. 4. No ascites. Cholangiopancreatography MRI 07/07/25 09:36 IMPRESSION: 1. Dilated, lobulated contour of the common bile duct and intrahepatic duct dilatation. These findings are new since 02/21/2025. 2. Very small filling defect involving the distal common bile duct suspicious for a small stone. ERCP recommended. Because of the duct dilatation needs to be determined. 3. Interval cholecystectomy since 02/21/2025. 4. Edema surrounding the pancreatic head and extending along the perirenal fascia. 5. Mild hepatomegaly and splenomegaly. Laboratory Results WBC 9.44 10^3/uL (3.29-11.43) 07/07/25 02:02 RBC 5.07 10^6/uL (3.85-5.65) 07/07/25 02:02 Hgb 14.00 g/dL (11.27-16.99) 07/07/25 02:02 Hct 42.0 % (36-47) 07/07/25 02:02 MCV 82.8 fl (85-98) L 07/07/25 02:02 MCH 27.6 pg (27-33) 07/07/25 02:02 MCHC 33.3 g/dL (30-55) 07/07/25 02:02 RDW 13.9 % (12.1-15.1) 07/07/25 02:02 Plt Count 411 10^3/cmm (157-399) H 07/07/25 02:02 MPV 10.0 fL (7.4-10.4) 07/07/25 02:02 Neut % (Auto) 70.1 % 07/07/25 02:02 Lymph % (Auto) 21.0 % 07/07/25 02:02 [place] % (Auto) 6.4 % 07/07/25 02:02 Eos % (Auto) 1.5 % 07/07/25 02:02 Baso % (Auto) 0.8 % 07/07/25 02:02 Neut # (Auto) 6.62 10^3/uL (1.8-7.7) 07/07/25 02:02 Lymph # (Auto) 2.0 10^3/uL (0.8-4.8) 07/07/25 02:02 [place] # (Auto) 0.6 10^3/uL (0.2-0.9) 07/07/25 02:02 Eos # (Auto) 0.1 10^3/uL (0.0-0.8) 07/07/25 02:02 Baso # (Auto) 0.1 10^3/uL (0.0-0.1) 07/07/25 02:02 Nucleated RBC % (auto) 0 % 07/07/25 02:02 Nucleated RBCs # 0.0 /100WBC 07/07/25 02:02 PT 12.10 SECONDS (12.1-14.9) 07/07/25 02:02 INR 0.83 (0.8-1.2) 07/07/25 02:02 Sodium 140 mmol/L (136-145) 07/07/25 02:02 Potassium 3.7 mmol/L (3.5-5.1) 07/07/25 02:02 Chloride 103 mmol/L (98-107) 07/07/25 02:02 Carbon Dioxide 21 mmol/L (22-29) L 07/07/25 02:02 Anion Gap 19.7 (5-19) H 07/07/25 02:02 BUN 8 mg/dL (6-20) 07/07/25 02:02 Creatinine 0.6 mg/dL (0.5-0.9) 07/07/25 02:02 GFR Calculation 123.9 mL/min (90-130) 07/07/25 02:02 Glucose 115 mg/dL (65-115) 07/07/25 02:02 Calculated Osmolality 289 mOsm/kg (285-295) 07/07/25 02:02 Lactic Acid 1.0 mmol/L (0.5-2.2) 07/07/25 02:02 Calcium 9.9 mg/dL (8.5-10.5) 07/07/25 02:02 Phosphorus 3.1 mg/dL (2.5-4.5) 07/07/25 02:02 Magnesium 2.0 mg/dL (1.7-2.3) 07/07/25 02:02 Total Bilirubin 2.9 mg/dL (0.15-1.2) H 07/07/25 02:02 AST 222 U/L (0-32) H 07/07/25 02:02 ALT 599 U/L (0-33) H 07/07/25 02:02 Alkaline Phosphatase 253 U/L (35-105) H 07/07/25 02:02 Ammonia 19 umol/L (11-51) 07/07/25 07:01 C-React Prot High Sens 0.260 mg/dL (0.0-0.3) 07/07/25 02:02 Total Protein 8.2 g/dL (6.6-8.7) 07/07/25 02:02 Albumin 4.6 g/dL (3.5-5.2) 07/07/25 02:02 Globulin 3.6 g/dL (1.3-4.6) 07/07/25 02:02 Lipase 922 U/L (13-60) H 07/07/25 02:02 HCG, Qual Negative (Negative) 07/07/25 02:02 Urine Color Dark yellow (Yellow) A 07/07/25 07:07 Urine Appearance Cloudy (CLEAR) A 07/07/25 07:07 Urine pH 5.5 (5-7) 07/07/25 07:07 Ur Specific [place] 1.021 (1.005-1.030) 07/07/25 07:07 Urine Protein 1+ (Negative) A 07/07/25 07:07 Urine Glucose (UA) Negative (Normal) 07/07/25 07:07 Urine Ketones 2+ (Negative) H 07/07/25 07:07 Urine Blood 2+ (Negative) A 07/07/25 07:07 Urine Nitrate Negative (Negative) 07/07/25 07:07 Urine Bilirubin 3+ (Negative) H 07/07/25 07:07 Urine Urobilinogen 1.0 mg/dL (Negative) 07/07/25 07:07 Ur Leukocyte Esterase Trace (Negative) A 07/07/25 07:07 Urine RBC 0-2 /hpf (0-2) 07/07/25 07:07 Urine WBC 0-5 /hpf (0-5) 07/07/25 07:07 Ur Squamous Epith Cells 0-5 /hpf (0-5) 07/07/25 07:07 Amorphous Sediment Not Reportable 07/07/25 07:07 Urine Bacteria None seen /hpf (NONE) 07/07/25 07:07 Hyaline Casts 0.40 /lpf 07/07/25 07:07 Hepatitis A IgM Ab Non-reactive (Nonreactive) 07/07/25 02:02 Hep Bs Antigen Non-reactive (Nonreactive) 07/07/25 02:02 Hep B Core IgM Ab Non-reactive (Nonreactive) 07/07/25 02:02 Hepatitis C Antibody Non-reactive (Nonreactive) 07/07/25 02:02 XR interpretation done by ED provider, pending radiology final review Discharge Plan Discharge Patient Disposition: Admitted As Inpatient Admit Provider: Yariel Solis Clinical Impression: Pancreatitis Condition: Stable Coding Level of Care Code ED Director [facility] for [facility] [place]
[2025-07-07 05:33] LABS: CRP High Sensitivity Cardiac 0.260 mg/dL (0.0-0.3); Magnesium 2.0 mg/dL (1.7-2.3)
[2025-07-07 05:34] LABS: Hepatitis A Antibody IgM Non-Reactive (Nonreactive); Hepatitis B Surface Antigen Non-Reactive (Nonreactive); Lactic Sepsis W/Reflex 1.0 mmol/L (0.5-2.2)
--- NOTE | 2025-07-07 06:10 | P.HP_ITS ---
Providers/Chief Complaint 2 Primary Care Provider: Tricia Springer Chief Complaint: Back Pain History of Present Illness Charo Cazares is a 24 year old female Medications/Allergies Home Medications ?Medication ?Instructions ?Recorded ?Confirmed ?Last Taken ?Type pantoprazole 40 mg tablet,delayed 40 mg PO BID 6 weeks #84 tabs 02/09/25 02/21/25 02/20/25 Rx release (Protonix) bismuth subsalicylate 262 mg/15 mL 524 mg PO Q1H PRN u pset stomach 02/21/25 02/21/25 02/20/25 History oral suspension (Pepto-Bismol) calcium carbonate 500 mg PO TID 02/21/2502/2102/20/25 History famotidine 20 mg tablet (Pepcid) 20 mg PO BID 02/21/25 02/21/25 02/20/25 History promethazine 25 mg tablet 25 mg PO Q6H PRN nausea and 02/21/25 Unknown Rx vomiting #20 tabs pantoprazole 40 mg tablet,delayed 40 mg PO DAILY #30 t abs 07/02/25 Unknown Rx release (Protonix) Allergies Allergy/AdvReac Type Severity Reaction Status Date / Time No Known Allergies Allergy Verified 07/02/25 20:45 PFSH Acute 2 PFSH: Medical History (Updated 07/02/25 @ 22:05 by Jackie Gerber MD) Menorrhagia with regular cycle No pertinent past medical history neghx: htn,dm,heart,lung,liver,kidney,thyroid,dvt PCP: [facility] Surgical History Hx of fracture of leg (~10/2020) L leg and ankle Hx of wisdom tooth extraction (~10/2016) Family History Mother Thyroid disease Family/Other Breast cancer Paternal Great Aunt, Paternal Great Grandmother-- dx age unknown Grandfather Hypertension Maternal Stroke Paternal Grandmother Diabetes Maternal Denies family history of Colon cancer Ovarian cancer Heart disease Bleeding disorder Uterine cancer Social History Smoking and tobacco/nicotine status: never used tobacco/nicotine Additional social history: - Tobacco use: Never Alcohol use: Never Drug use: Never Vitals/I&O/Wt Last Vital Signs Temp 97.8 F 07/07/25 01:04 Pulse 61 07/07/25 01:04 Resp 20 H 07/07/25 01:04 BP 208/95 07/07/25 01:04 Pulse Ox 99 07/07/25 01:04 O2 Del Method Room Air 07/07/25 01:04 Weight last 48 hrs Weight 136.078 kg Data 07/07/25 02:02 07/07/25 02:02 A&P Assessment and plan 1. Gastritis: Plan: START OF MEDICAL REPORT Yariel Solis D.O. Board Certified Internal Medicine Chief Complaint: Abdominal pain History of Present Illness: The patient is a 23-year-old female with history of cholecystectomy who presents with two-point one-week history of intermittent abdominal pain. The patient states it as a 5 days prior to this hospitalization, her abdominal pain has been constant. 5 days prior to this encounter, she presented to the emergency department and was discharged from there. The patient states that the pain is in her right upper quadrant but radiates to her back. She describes the pain as sharp. As worst rated 9 out of 10 currently rates 9 out of 10. There is no difference with oral intake in terms of the severity of the pain. She states this that her last bowel movement was proximally 6 hours prior to hospitalization. She states it was of normal consistency and she denies melena, hematochezia, steatorrhea. The patient admits to nausea and emesis. She denies fever and she denies rigors. She denies frequent NSAID use. The patient states that she is taking Tylenol, Tums, Emelia-[place], and Protonix at home without relief. A request was made for hospitalization with abdominal imaging not yet performed with the patient being a difficult candidate for IV access cited as recent. The patient presents for further evaluation I have explained to the patient (if they are coherent, able to comprehend, and/or are communicative) and/or their family member(s), friend(s), guardian(s), and/or other individual(s) present on the patient?s behalf (if present) the patient?s current medical condition, the patient?s current plan of care, and I have answered all questions posed to me. Family History: Hypertension Physical Examination: General: -Alert. -No acute distress. -No dyspnea. -No tachypnea. ? Morbidly obese Head: -Atraumatic. -Normocephalic. Eyes: -Pupils equally round and reactive to light and accommodation. -Extraocular muscles intact. Neurological: -Cranial nerves II-XII intact. Neck: -No jugular venous distention. -No thyromegaly. -No cervical lymphadenopathy. Heart: -Regular rate. -Regular rhythm. -No murmurs. -No gallops. -No rubs. Lungs: -No wheeze. -No rhonchi. -No rales. Abdomen: -Normal bowel sounds in all four quadrants. -No rebound. -No guarding. -Right upper quadrant tenderness. Extremities: -2/4 pulse in all four extremities. -No clubbing. -No cyanosis. -No edema. -No calf tenderness present bilaterally. -Negative Tomas?s sign bilaterally. Musculoskeletal: -5/5 bilateral upper extremity strength. -5/5 bilateral lower extremity strength. -Sensorium of bilateral upper extremities are equal and intact. -Sensorium of bilateral lower extremities are equal and intact. Additional Details / Additional Findings / Exceptions / Miscellaneous: Pertinent Laboratory Results / Pertinent Radiology Results / Pertinent Diagnostic Results / Pertinent Vital Signs: Blood pressure 208/95, heart rate 61, respirations 20, temperature 97.8?, 99%. Alkaline phosphatase 2 153, AST 222, ALT 599, total bilirubin 2.7, lipase 922 Social History: Caffeine: Denies Tobacco: Never Alcohol: Denies Pets: Yes + Allergies: No known drug allergies Code Status: Full Admission Date: 6:08 AM on July 07, 2025 Discharge Date: History of Present Illness / Hospital Course Summary: The patient is a 23-year-old female with history of cholecystectomy who presents with two-point one-week history of intermittent abdominal pain. The patient states it as a 5 days prior to this hospitalization, her abdominal pain has been constant. 5 days prior to this encounter, she presented to the emergency department and was discharged from there. The patient states that the pain is in her right upper quadrant but radiates to her back. She describes the pain as sharp. As worst rated 9 out of 10 currently rates 9 out of 10. There is no difference with oral intake in terms of the severity of the pain. She states this that her last bowel movement was proximally 6 hours prior to hospitalization. She states it was of normal consistency and she denies melena, hematochezia, steatorrhea. The patient admits to nausea and emesis. She denies fever and she denies rigors. She denies frequent NSAID use. The patient states that she is taking Tylenol, Tums, Emelia-Gen[place], and Protonix at home without relief. A request was made for hospitalization with abdominal imaging not yet performed with the patient being a difficult candidate for IV access cited as recent. The patient presents for further evaluation Surgical History: Cholecystectomy, wisdom tooth extraction, left leg surgery, tubal ligation Assessment / Plan + Medical History: Abdominal pain likely due to pancreatitis as witnessed by elevated lipase. No abdominal imaging yet performed due to patient being difficult to obtain IV access on. CT of the abdomen pelvis with IV contrast pending. A CT of the abdomen pelvis is unrevealing, consideration for MRCP. Will provide when necessary analgesia. We will monitor lipase level intermittently along with CMP. IV normal saline 125 ML?s per hour Transaminitis. We will monitor LFTs periodically with CMP along with PT/INR. Hepatitis panel negative. Check ammonia level. CT of the abdomen and pelvis with IV contrast pending GERD with history of gastritis Elevated blood pressure. Monitor blood pressure closely and treat accordingly Obesity. The patient will be counseled regarding lifestyle modification DVT prophylaxis. Bilateral SCD Consultations: None Disposition: Anticipate discharge in greater than 72 hours + Discharge Diet: Discharge Activity: Discharge Condition: Discharge Medications: Time Spent with Patient: Greater than 30 minutes. Yariel Solis D.O. Board Certified Internal Medicine END OF MEDICAL REPORT PDMP PDMP Reviewed: Not Reviewed Attestations 2 Medical Necessity Statement*: Anticipate discharge in greater than 72 hours Coding Level of Care Code Acute Code for Chg Fwd Diagnoses Gastritis K29.70
[2025-07-07] MEDS: ondansetron 2 mg/ML SDV 2 mL 4 MG IVP ×5 (06:19→22:57)
[2025-07-07] MEDS: morphine 4 mg/mL SDV 1 mL IVP (06:20)
[2025-07-07 06:31] LABS: INR 0.83 (0.8-1.2); Prothrombin Time 12.10 SECONDS (12.1-14.9)
[2025-07-07 07:21] LABS: Ammonia 19 umol/L (11-51)
[2025-07-07 07:36] LABS: Glucose Urine UA Negative (Normal); Nitrate Urine Negative (Negative); Specific Gravity, Urine 1.021 (1.005-1.030)
[2025-07-07 07:39] LABS: Add Urine Microscopic? YES
[2025-07-07] MEDS: morphine 4 mg/mL SDV 1 mL 2 MG IVP ×2 (08:43→13:06)
--- NOTE | 2025-07-07 08:47 | US_ITS ---
WS: [id number] RIGHT UPPER QUADRANT ULTRASOUND HISTORY: RIGHT upper quadrant pain. COMPARISON: 02/21/2025, 07/07/2025 Liver: 16.3 cm in length. Normal size liver and echogenicity. Very mild central bile duct dilatation. Portal Vein: Normal hepatopetal flow with monophasic waveform. Gallbladder: Prior cholecystectomy. CBD: 0.9 cm Pancreas: Completely obscured by bowel gas and body habitus. Right kidney: 12.1 cm in length. Normal size and echogenicity. No hydronephrosis or mass. Aorta and IVC: Unremarkable abdominal aorta and IVC. No ascites. US/US abdomen limited [id number] IMPRESSION: 1. Status post cholecystectomy. 2. Mildly dilated common bile duct and central intrahepatic ducts. Dilatation does not appear as significant as on the CT from 07/07/2025. 3. Pancreas is not identified due to bowel gas and body habitus. 4. No ascites.
[2025-07-07] MEDS: iohexol 350 mg/mL 500 mL Btl (per mL) IV (08:48)
--- NOTE | 2025-07-07 09:36 | MR_ITS ---
WS: [id number] MRCP (MAGNETIC RESONANCE CHOLANGIOPANCREATOGRAPHY) HISTORY: cholangitis COMPARISON: 02/21/2025, CT 07/07/2025 TECHNIQUE: Multiple sequences are performed to evaluate the intra and extrahepatic ducts. Status post cholecystectomy since the prior exam of 02/21/2025. There is significant dilatation of the common bile duct which is new. The common bile duct is dilated to 9 mm with a new lobulated contour. There is a very tiny filling defect in the distal common bile duct at the pancreatic head which may be small stones. There is also mild central intrahepatic duct dilatation. No pancreatic duct dilatation. Liver and spleen are both mildly enlarged. Very similar to the prior study. Normal size kidneys. Pancreas is mildly edematous. There is fluid surrounding the pancreatic head. Small amount of fluid extends along the pararenal fascia. No renal obstruction. Lung bases are clear. MR/MR MRCP [id number] IMPRESSION: 1. Dilated, lobulated contour of the common bile duct and intrahepatic duct di latation. These findings are new since 02/21/2025. 2. Very small filling defect involving the distal common bile duct suspicious for a small stone. ERCP recommended. Because of the duct dilatation needs to be determined. 3. Interval cholecystectomy since 02/21/2025. 4. Edema surrounding the pancreatic head and extending along the perirenal fas jolie. 5. Mild hepatomegaly and splenomegaly.
[2025-07-07 10:26] LABS: Hematocrit 41.4 % (36-47); Hemoglobin 13.90 g/dL (11.27-16.99); Mean Corpuscular HGB Conc 33.6 g/dL (30-55); Mean Corpuscular Hemoglobin 28.7 pg (27-33); Mean Corpuscular Volume 85.4 fl (85-98); Nucleated Red Blood Cells % 0 %; Platelet Count 413 10^3/cmm (157-399); Red Blood Count 4.85 10^6/uL (3.85-5.65); White Blood Count 11.40 10^3/uL (3.29-11.43)
[2025-07-07 10:32] LABS: PCP Screen Urine Negative (Negative)
[2025-07-07 11:09] LABS: Alanine Aminotransferase 577 U/L (0-33); Albumin Level 4.1 g/dL (3.5-5.2); Alcohol Level < 10 mg/dL (0-10); Alkaline Phosphatase 216 U/L (35-105); Anion Gap 13.7 (5-19); Aspartate Amino Transferase 247 U/L (0-32); Blood Urea Nitrogen 6 mg/dL (6-20); Calcium 9.3 mg/dL (8.5-10.5); Carbon Dioxide 25 mmol/L (22-29); Chloride 103 mmol/L (98-107); Cholesterol 206 mg/dL (0-200); Globulin 3.3 g/dL (1.3-4.6); Glucose 117 mg/dL (65-115); HDL Cholesterol 46 mg/dL (60-100); Osmolality Calculated 285 mOsm/kg (285-295); Potassium 3.7 mmol/L (3.5-5.1); Sodium 138 mmol/L (136-145); Total Protein 7.4 g/dL (6.6-8.7); Triglycerides 99 mg/dL (0-150)
[2025-07-07 11:15] LABS: Procalcitonin 0.16 ng/mL (0-0.5)
[2025-07-07 13:05] LABS: Lipase 10351 U/L (13-60)
[2025-07-07] MEDS: piperacillin-tazobactam 3.375 GM in sodium chloride 0.9% (plus) 50 ML IV ×2 (13:10→20:44)
--- NOTE | 2025-07-07 13:19 | PM.PN ---
Subjective Subjective: - Patient was examined this morning - She is alert oriented x 3, following all commands - Does have severe complaints of epigastric and right upper quadrant discomfort, with intractable nausea vomiting - She is passing gas from below, has not had a bowel movement - She tells me that she had a cholecystectomy back in March, she has not had any complications since then - She tells me that she normal spontaneous vaginal delivery of baby daughter back in December, but during her there was concerns for her liver function, which according to patient had improved after her delivery - She is breast-feeding - Denies any drug use, denies any Ozempic use or GLP-1 analog - No trauma, no steroid use - She was here in the emergency room on 07/02 for abdominal discomfort, she did have transaminitis at that time, concern for gastritis or peptic ulcer disease, no white blood cell count 16.9, discharged on pantoprazole -Reports intractable right upper quadrant pain, epigastric discomfort, nausea, vomiting over the last few days, fatigue, malaise, chills -Today her GGT is 273, bili is 3.0, AST is 247, ALT 577, alk phos is 216, lipase 900 - Her CT scan shows intra and extrahepatic biliary dilatation, with evidence of mild pancreatitis - Discussed with the patient, my high suspicion that she has potentially biliary stone, or stricture, my concerns for acute ascending cholangitis - Discussed doing an ultrasound of the gallbladder and liver, and an MRCP - Discussed the case with [facility] for transfer for need for ERCP - Discussed risks and benefits of transfer, she voiced understanding, all questions answered, shared decision making, agreed to proceed - I also discussed case with general surgery, who recommended transfer for the need for ERCP - Spoke to [facility] transfer line, spoke to their client service coordinator, spoke to their nurse practitioner for hospitalist team - Discussed need for transfer for the need for GI, ERCP - Patient has been accepted at [facility] - MR/MR MRCP [id number] IMPRESSION: 1. Dilated, lobulated contour of the common bile duct and intrahepatic duct dilatation. These findings are new since 02/21/2025. 2. Very small filling defect involving the distal common bile duct suspicious for a small stone. ERCP recommended. Because of the duct dilatation needs to be determined. 3. Interval cholecystectomy since 02/21/2025. 4. Edema surrounding the pancreatic head and extending along the perirenal fascia. 5. Mild hepatomegaly and splenomegaly. - MRCP as above, given filling defect, will urgently transfer to [facility] for GI evaluation, ERCP - This afternoon I tried to reach out to [facility] to give them updates on the MRCP findings, however their phone lines are down we will try again Vitals/I&O/Wt Last Vital Signs Temp 97.8 F 07/07/25 11:15 Pulse 75 07/07/25 11:15 Resp 17 07/07/25 13:06 BP 168/88 07/07/25 11:15 Pulse Ox 98 07/07/25 11:15 O2 Del Method Room Air 07/07/25 11:15 07/06/25 07/07/25 07/07/25 22:59 06:59 14:59 Intake Total 1000 / 1000 Output Total 200 / 200 Balance 800 / 800 Weight last 48 hrs Weight 139.57 kg Weight 136.078 kg Physical Exam Const: COMMON NORMALS: no acute distress and patient oriented x3 Resp: COMMON NORMALS: normal respiratory effort, No retractions, No use of accessory muscles and clear to auscultation bilaterally AUSCULTATION: clear to auscultation bilaterally Cardio: COMMON NORMALS: regular rate, regular rhythm, S1 normal heart sound present and S2 normal heart sound present RATE: regular rate RHYTHM: regular rhythm HEART SOUNDS: S1 normal heart sound present and S2 normal heart sound present GI: COMMON NORMALS: Normal to inspection, nondistended, normoactive bowel sounds present and non-tender Extremity: COMMON NORMALS: no pedal edema Neuro: COMMON NORMALS: patient oriented x3 Psych: COMMON NORMALS: mental status grossly normal Data 07/07/25 10:15 07/07/25 10:15 Micro: Microbiology 07/07/25 10:15 Blood Culture - Preliminary Blood SPECIMEN COLLECTED 07/07/25 10:15 Blood Culture - Preliminary Blood SPECIMEN COLLECTED A&P Assessment and plan 1. Acute cholangitis: Plan: - Acute cholangitis -With evidence of pancreatitis -With evidence of transaminitis MR/MR MRCP [id number] IMPRESSION: 1. Dilated, lobulated contour of the common bile duct and intrahepatic duct dilatation. These findings are new since 02/21/2025. 2. Very small filling defect involving the distal common bile duct suspicious for a small stone. ERCP recommended. Because of the duct dilatation needs to be determined. 3. Interval cholecystectomy since 02/21/2025. 4. Edema surrounding the pancreatic head and extending along the perirenal fascia. 5. Mild hepatomegaly and splenomegaly. - Bilirubin is 3.0, GGT 273, AST 247, ALT 577, alk phos 216, lipase 10 351 Plan - N.p.o. - IV fluids - IV Zosyn -IV morphine - Patient is being transferred to [facility] in [place], for GI and ERCP procedure given evidence of stone in distal common bile duct - Full code - Lovenox for DVT prophylaxis PDMP PDMP Reviewed: Not Reviewed Attestations Medical Necessity Statement*: Patient requires hospitalization for acute cholangitis, requiring transfer for ERCP procedure Diagnoses Acute cholangitis K83.09
[2025-07-07] MEDS: HYDROmorphone 0.5 MG/0.5 ML INJ IVP ×3 (14:42→22:52)
--- NOTE | 2025-07-07 14:51 | PM.TDS ---
Transfer Summary Providers Date of Admission: 07/07/25 07:51 Date of Discharge/Transfer: 07/07/25 Attending Provider at Admission: Yariel Solis DO Attending Provider at Transfer: Tarun Tuttle MD Primary Care Provider: Tricia Springer Transfer Plans: Anticipated date of transfer: 07/07/25. Diagnoses at Discharge Discharge Diagnosis 1. Acute cholangitis: Reason for Visit Reason for Visit Back Pain Hospital Course Hospital Course This is a 24-year-old female with past medical history of acute cholecystectomy for acute cholecystitis, history of gallstones, who presents to [facility] due to nausea, vomiting, right upper quadrant abdominal pain Patient was admitted to [facility] for: Acute cholangitis -With evidence of pancreatitis -With evidence of transaminitis Ultrasound abdomen US/US abdomen limited [id number] IMPRESSION: 1. Status post cholecystectomy. 2. Mildly dilated common bile duct and central intrahepatic ducts. Dilatation does not appear as significant as on the CT from 07/07/2025. 3. Pancreas is not identified due to bowel gas and body habitus. 4. No ascites. CT scan abdomen pelvis CT/CT abdomen pelvis w con* [id number] IMPRESSION: 1. Postoperative changes status post prior cholecystectomy. There is intra and extrahepatic biliary ductal dilatation. Please see above comments. 2. Mild pancreatitis. 3. Please see above comments for additional details. MR/MR MRCP [id number] IMPRESSION: 1. Dilated, lobulated contour of the common bile duct and intrahepatic duct dilatation. These findings are new since 02/21/2025. 2. Very small filling defect involving the distal common bile duct suspicious for a small stone. ERCP recommended. Because of the duct dilatation needs to be determined. 3. Interval cholecystectomy since 02/21/2025. 4. Edema surrounding the pancreatic head and extending along the perirenal fascia. 5. Mild hepatomegaly and splenomegaly. - Bilirubin is 3.0, GGT 273, AST 247, ALT 577, alk phos 216, lipase 10 351 - Patient is admitted to [facility] received IV pain control, IV Zosyn, IV fluids, kept n.p.o. - Patient will be transferred to [facility] in [place] for evaluation for ERCP Physical Exam Const: COMMON NORMALS: no acute distress and patient oriented x3 Resp: COMMON NORMALS: normal respiratory effort, No retractions, No use of accessory muscles and clear to auscultation bilaterally AUSCULTATION: clear to auscultation bilaterally Cardio: COMMON NORMALS: regular rate, regular rhythm, S1 normal heart sound present and S2 normal heart sound present RATE: regular rate RHYTHM: regular rhythm HEART SOUNDS: S1 normal heart sound present and S2 normal heart sound present GI: OTHER: Abdomen soft, slightly distended, right upper quadrant tenderness to palpation, no guarding, no rebound, no rigidity Extremity: COMMON NORMALS: no pedal edema Neuro: COMMON NORMALS: patient oriented x3 Psych: COMMON NORMALS: mental status grossly normal TS Data Studies Completed and Pending Pending at discharge Category Date Time Status Blood Culture Stat Lab 07/07/25 10:15 Results CMP [Comprehensive Metabolic Panel] Routine Lab 07/08/25 05:00 Ordered Lipase Routine Lab 07/08/25 06:00 Ordered Prothrombin Time INR Routine Lab 07/08/25 05:00 Ordered Completed Studies During Hospitalization Category Date Time Status CT abdomen pelvis w con* [id number] Stat Cat Scan 07/07/25 04:21 Completed MR MRCP [id number] Stat MRI 07/07/25 09:36 Completed US abdomen limited [id number] Stat Ultrasound 07/07/25 08:47 Completed Laboratory Last Values WBC 11.40 10^3/uL (3.29-11.43) 07/07/25 10:15 RBC 4.85 10^6/uL (3.85-5.65) 07/07/25 10:15 Hgb 13.90 g/dL (11.27-16.99) 07/07/25 10:15 Hct 41.4 % (36-47) 07/07/25 10:15 MCV 85.4 fl (85-98) 07/07/25 10:15 MCH 28.7 pg (27-33) 07/07/25 10:15 MCHC 33.6 g/dL (30-55) 07/07/25 10:15 RDW 13.9 % (12.1-15.1) 07/07/25 10:15 Plt Count 413 10^3/cmm (157-399) H 07/07/25 10:15 MPV 9.9 fL (7.4-10.4) 07/07/25 10:15 Neut % (Auto) 78.9 % 07/07/25 10:15 Lymph % (Auto) 12.2 % 07/07/25 10:15 Parke % (Auto) 7.8 % 07/07/25 10:15 Eos % (Auto) 0.2 % 07/07/25 10:15 Baso % (Auto) 0.5 % 07/07/25 10:15 Neut # (Auto) 9.00 10^3/uL (1.8-7.7) H 07/07/25 10:15 Lymph # (Auto) 1.4 10^3/uL (0.8-4.8) 07/07/25 10:15 Parke # (Auto) 0.9 10^3/uL (0.2-0.9) 07/07/25 10:15 Eos # (Auto) 0.0 10^3/uL (0.0-0.8) 07/07/25 10:15 Baso # (Auto) 0.1 10^3/uL (0.0-0.1) 07/07/25 10:15 Nucleated RBC % (auto) 0 % 07/07/25 10:15 Nucleated RBCs # 0.0 /100WBC 07/07/25 10:15 PT 12.10 SECONDS (12.1-14.9) 07/07/25 02:02 INR 0.83 (0.8-1.2) 07/07/25 02:02 Sodium 138 mmol/L (136-145) 07/07/25 10:15 Potassium 3.7 mmol/L (3.5-5.1) 07/07/25 10:15 Chloride 103 mmol/L (98-107) 07/07/25 10:15 Carbon Dioxide 25 mmol/L (22-29) 07/07/25 10:15 Anion Gap 13.7 (5-19) 07/07/25 10:15 BUN 6 mg/dL (6-20) 07/07/25 10:15 Creatinine 0.7 mg/dL (0.5-0.9) 07/07/25 10:15 GFR Calculation 103.7 mL/min (90-130) 07/07/25 10:15 Glucose 117 mg/dL (65-115) H 07/07/25 10:15 Calculated Osmolality 285 mOsm/kg (285-295) 07/07/25 10:15 Lactic Acid 1.0 mmol/L (0.5-2.2) 07/07/25 02:02 Calcium 9.3 mg/dL (8.5-10.5) 07/07/25 10:15 Phosphorus 3.1 mg/dL (2.5-4.5) 07/07/25 02:02 Magnesium 2.0 mg/dL (1.7-2.3) 07/07/25 02:02 Total Bilirubin 3.0 mg/dL (0.15-1.2) H 07/07/25 10:15 GGT 273 U/L (5-36) H 07/07/25 10:15 AST 247 U/L (0-32) H 07/07/25 10:15 ALT 577 U/L (0-33) H 07/07/25 10:15 Alkaline Phosphatase 216 U/L (35-105) H 07/07/25 10:15 Ammonia 19 umol/L (11-51) 07/07/25 07:01 C-Reactive Protein 3.0 mg/L (0.0-4.9) 07/07/25 10:15 C-React Prot High Sens 0.260 mg/dL (0.0-0.3) 07/07/25 02:02 Total Protein 7.4 g/dL (6.6-8.7) 07/07/25 10:15 Albumin 4.1 g/dL (3.5-5.2) 07/07/25 10:15 Globulin 3.3 g/dL (1.3-4.6) 07/07/25 10:15 Triglycerides 99 mg/dL (0-150) 07/07/25 10:15 Cholesterol 206 mg/dL (0-200) H 07/07/25 10:15 LDL Cholesterol, Calc 140 mg/dL (50-129) H 07/07/25 10:15 HDL Cholesterol 46 mg/dL (60-100) L 07/07/25 10:15 LDL/HDL Ratio 3.04 RATIO (0.00-3.22) 07/07/25 10:15 Cholesterol/HDL Ratio 4.48 mg/dL (0.0-4.40) H 07/07/25 10:15 Lipase 98248 U/L (13-60) H 07/07/25 10:15 Procalcitonin 0.16 ng/mL (0-0.5) 07/07/25 10:15 HCG, Qual Negative (Negative) 07/07/25 02:02 Urine Color Dark yellow (Yellow) A 07/07/25 07:07 Urine Appearance Cloudy (CLEAR) A 07/07/25 07:07 Urine pH 5.5 (5-7) 07/07/25 07:07 Ur Specific [place] 1.021 (1.005-1.030) 07/07/25 07:07 Urine Protein 1+ (Negative) A 07/07/25 07:07 Urine Glucose (UA) Negative (Normal) 07/07/25 07:07 Urine Ketones 2+ (Negative) H 07/07/25 07:07 Urine Blood 2+ (Negative) A 07/07/25 07:07 Urine Nitrate Negative (Negative) 07/07/25 07:07 Urine Bilirubin 3+ (Negative) H 07/07/25 07:07 Urine Urobilinogen 1.0 mg/dL (Negative) 07/07/25 07:07 Ur Leukocyte Esterase Trace (Negative) A 07/07/25 07:07 Urine RBC 0-2 /hpf (0-2) 07/07/25 07:07 Urine WBC 0-5 /hpf (0-5) 07/07/25 07:07 Ur Squamous Epith Cells 0-5 /hpf (0-5) 07/07/25 07:07 Amorphous Sediment Not Reportable 07/07/25 07:07 Urine Bacteria None seen /hpf (NONE) 07/07/25 07:07 Hyaline Casts 0.40 /lpf 07/07/25 07:07 Urine Opiates Screen Positive ng/mL (Negative) H 07/07/25 09:50 Ur Barbiturates Screen Negative ng/mL (Negative) 07/07/25 09:50 Ur Phencyclidine Scrn Negative ng/mL (Negative) 07/07/25 09:50 Ur Amphetamines Screen Negative ng/mL (Negative) 07/07/25 09:50 U Benzodiazepines Scrn Negative ng/mL (Negative) 07/07/25 09:50 Urine Cocaine Screen Negative ng/mL (Negative) 07/07/25 09:50 U Marijuana (THC) Screen Negative ng/mL (Negative) 07/07/25 09:50 Ethyl Alcohol < 10 mg/dL (0-10) 07/07/25 10:15 Hepatitis A IgM Ab Non-reactive (Nonreactive) 07/07/25 02:02 Hep Bs Antigen Non-reactive (Nonreactive) 07/07/25 02:02 Hep B Core IgM Ab Non-reactive (Nonreactive) 07/07/25 02:02 Hepatitis C Antibody Non-reactive (Nonreactive) 07/07/25 02:02 Radiology Impressions Abdomen/Pelvis CT 07/07/25 04:21 IMPRESSION: 1. Postoperative changes status post prior cholecystectomy. There is intra and extrahepatic biliary ductal dilatation. Please see above comments. 2. Mild pancreatitis. 3. Please see above comments for additional details. Abdomen Ultrasound 07/07/25 08:47 IMPRESSION: 1. Status post cholecystectomy. 2. Mildly dilated common bile duct and central intrahepatic ducts. Dilatation does not appear as significant as on the CT from 07/07/2025. 3. Pancreas is not identified due to bowel gas and body habitus. 4. No ascites. Cholangiopancreatography MRI 07/07/25 09:36 IMPRESSION: 1. Dilated, lobulated contour of the common bile duct and intrahepatic duct dilatation. These findings are new since 02/21/2025. 2. Very small filling defect involving the distal common bile duct suspicious for a small stone. ERCP recommended. Because of the duct dilatation needs to be determined. 3. Interval cholecystectomy since 02/21/2025. 4. Edema surrounding the pancreatic head and extending along the perirenal fascia. 5. Mild hepatomegaly and splenomegaly. Recent Clincial Data Last Vital Signs Temp 97.8 F 07/07/25 11:15 Pulse 75 07/07/25 11:15 Resp 17 07/07/25 13:06 BP 168/88 07/07/25 11:15 Pulse Ox 98 07/07/25 11:15 O2 Del Method Room Air 07/07/25 11:15 Vital Signs Temp Pulse Resp BP Pulse Ox O2 Del Method 07/07/25 13:06 17 07/07/25 11:15 97.8 F 75 18 168/88 98 Room Air 07/07/25 08:43 18 07/07/25 08:25 97.6 F 79 18 148/87 97 Room Air 07/07/25 08:13 Room Air 07/07/25 07:46 60 159/97 97 07/07/25 07:35 60 18 159/97 99 Intake & Output/Weight 07/05/25 07/06/25 07/07/25 07/08/25 06:59 06:59 06:59 06:59 Intake Total 1000 / 1000 Output Total 1000 / 1000 Balance 0 / 0 Weight 136.078 kg 139.57 kg Vitals Last Vital Signs Temp 97.8 F 07/07/25 11:15 Pulse 75 07/07/25 11:15 Resp 17 07/07/25 13:06 BP 168/88 07/07/25 11:15 Pulse Ox 98 07/07/25 11:15 O2 Del Method Room Air 07/07/25 11:15 TS Medications Medications Enoxaparin Sodium (Enoxaparin 40 Mg/0.4 Ml Syringe) 40 mg SUBCUT Q24H [facility] Last Admin: 07/07/25 14:42 Dose: 40 mg Hydralazine HCl (Hydralazine 20 Mg/Ml Inj 1 Ml) 10 mg IVP Q4H PRN PRN Reason: prn sbp>160 Hydromorphone HCl (Hydromorphone 0.5 Mg/0.5 Ml Inj) 0.5 mg IVP Q4H PRN PRN Reason: PAIN Last Admin: 07/07/25 14:42 Dose: 0.5 mg Sodium Chloride (Sodium Chloride 0.9%) 1,000 mls @ 125 mls/hr IV .Q8H [facility] Last Admin: 07/07/25 08:55 Dose: 125 mls/hr Piperacillin Sod/Tazobactam (Sod 3.375 gm/ Sodium Chloride) 50 mls @ 12.5 mls/hr IV Q8H [facility]; Protocol Last Admin: 07/07/25 13:10 Dose: 12.5 mls/hr Metoclopramide HCl (Metoclopramide 5 Mg/Ml Sdv 2 Ml) 5 mg IVP Q6H PRN PRN Reason: NAUSEA AND VOMITING Ondansetron HCl (Ondansetron 2 Mg/Ml Sdv 2 Ml) 4 mg IVP Q4H PRN PRN Reason: vomiting, or N/V if npo Last Admin: 07/07/25 13:06 Dose: 4 mg Discontinued Medications Hydromorphone HCl (Hydromorphone 0.5 Mg/0.5 Ml Inj) 1 mg IVP Q4H PRN PRN Reason: PAIN Sodium Chloride (Sodium Chloride 0.9%) 1,000 mls @ 999 mls/hr IV .Q1H1M ONE Stop: 07/07/25 05:21 Last Infusion: 07/07/25 09:19 Dose: Infused Iohexol (Iohexol 350 Mg/Ml 500 Ml Btl (Per Ml)) 0 ml IV ONCE ONE Stop: 07/07/25 07:11 Last Admin: 07/07/25 08:48 Dose: 100 ml Morphine Sulfate (Morphine 4 Mg/Ml Sdv 1 Ml) 4 mg IVP ONCE ONE Stop: 07/07/25 04:22 Last Admin: 07/07/25 06:20 Dose: 4 mg Morphine Sulfate (Morphine 4 Mg/Ml Sdv 1 Ml) 2 mg IVP Q4H PRN PRN Reason: SEVERE PAIN Last Admin: 07/07/25 13:06 Dose: 2 mg Ondansetron HCl (Ondansetron 2 Mg/Ml Sdv 2 Ml) 4 mg IVP ONCE ONE Stop: 07/07/25 04:22 Last Admin: 07/07/25 06:19 Dose: 4 mg Allergies No Known Allergies Allergy (Verified 07/02/25 20:45) Home Medications bismuth subsalicylate 262 mg/15 mL oral suspension (Pepto-Bismol) 524 mg PO Q1H PRN upset stomach 02/21/25 [History Confirmed 07/07/25] calcium carbonate 500 mg PO TID 02/21/25 [History Confirmed 07/07/25] pantoprazole 40 mg tablet,delayed release (Protonix) 40 mg PO DAILY #30 tabs 07/02/25 [Rx Confirmed 07/07/25] acetaminophen 325 mg tablet (Tylenol) 650 mg PO QID PRN Fever Or Pain 07/07/25 [History Confirmed 07/07/25] Discharge Plan Discharge Patient Disposition: Home Condition: Stable Prescriptions: No Action bismuth subsalicylate [Pepto-Bismol] 262 mg/15 mL Suspension 524 mg PO Q1H PRN (Reason: upset stomach) Rx Instructions: do not exceed 8 doses in a 24 hour period calcium carbonate [Tums 500] 500 mg calcium (1,250 mg) Tablet,Chewable 500 mg PO TID pantoprazole [Protonix] 40 mg tablet,delayed release (DR/EC) 40 mg PO DAILY Qty: 30 0RF acetaminophen [Tylenol] 325 mg Tablet 650 mg PO QID PRN (Reason: Fever Or Pain) Referrals: Tricia Springer FNP [Primary Care Provider, Nurse Practitioner] Patient Instructions: Abdominal Pain (ED), Opioid Safety, Patient Portal & Jen Instructions Transfer Attestations Time Spent in Transfer Care: greater than 30 min Quality Metrics Clinical Quality Measures [ No reported AMI, CVA or VTE this stay] Coding Level of Care Code 48192 Total time (in minutes) for Discharge: 45 Diagnoses Acute cholangitis K83.09
[2025-07-08] VITALS: BP 159/90; PULSE 74; RESP 17; TEMP 37; O2SAT 97
[2025-07-08] MEDS: HYDROmorphone 0.5 MG/0.5 ML INJ IVP ×2 (03:10→07:12)
[2025-07-08] MEDS: metoclopramide 5 mg/mL SDV 2 mL IVP (03:10)
[2025-07-08 03:38] VITALS: BP 144/82; PULSE 68; RESP 17; TEMP 36.2; O2SAT 99
[2025-07-08] MEDS: piperacillin-tazobactam 3.375 GM in sodium chloride 0.9% (plus) 50 ML IV (04:18)
[2025-07-08 06:16] LABS: INR 0.84 (0.8-1.2); Prothrombin Time 12.10 SECONDS (12.1-14.9)
[2025-07-08 06:24] LABS: Alanine Aminotransferase 652 U/L (0-33); Albumin Level 3.9 g/dL (3.5-5.2); Alkaline Phosphatase 256 U/L (35-105); Anion Gap 19.5 (5-19); Aspartate Amino Transferase 340 U/L (0-32); Blood Urea Nitrogen 8 mg/dL (6-20); Calcium 9.2 mg/dL (8.5-10.5); Carbon Dioxide 21 mmol/L (22-29); Chloride 106 mmol/L (98-107); Globulin 3.3 g/dL (1.3-4.6); Glucose 107 mg/dL (65-115); Osmolality Calculated 295 mOsm/kg (285-295); Potassium 3.5 mmol/L (3.5-5.1); Sodium 143 mmol/L (136-145); Total Protein 7.2 g/dL (6.6-8.7)
[2025-07-08] MEDS: ondansetron 2 mg/ML SDV 2 mL 4 MG IVP (07:12)
[2025-07-08 07:13] VITALS: BP 160/92; PULSE 59; RESP 18; TEMP 36.7; O2SAT 97
[2025-07-08 07:24] LABS: Lipase 5585 U/L (13-60)
[2025-07-08 09:29] VITALS: BP 160/92; PULSE 59; RESP 18; TEMP 36.7; O2SAT 97
== END 2025-07-08 09:10 | disposition home or self-care (01) ==
LOC: ER 07:47 → MEDSURG 08:47
PROVIDERS: Admitting Provider Internal Medicine; Emergency Provider Student in an Organized Health Care Education/Training Program; PCP Nurse Practitioner Family; Visit Provider Family Medicine
DX: K83.09 Other cholangitis (principal); K21.9 Gastro-esophageal reflux disease without esophagitis; E66.01 Morbid (severe) obesity due to excess calories; Z68.41 Body mass index [BMI] 40.0-44.9, adult; K29.70 Gastritis, unspecified, without bleeding
CPT/HCPCS: 36415; 74177; 74181; 76705; 80053; 80061; 80074; 80306; 80307; 81001; 82140; 82977; 83605; 83690; 83735; 84100; 84145; 84703; 85025; 85610; 86140; 86141; 87040; 96372; 96374; 96375; 96376; 99285; G0378; J1171; J1650; J2270; J2405; J2543; J2765; J7030; J9999